=== PATIENT | male | born 1945 | race Caucasian/White ===

== ENCOUNTER → 2017-05-27 08:39 | Outpatient (CLI) | payer MEDICARE, SELFPAY ==
[2017-05-27 09:19] LABS: AST(SGOT) 24 U/L (15-37); Alanine Aminotransfer ALT/SGPT 28 U/L (16-61); Alkaline Phosphatase 72 U/L (45-117); Bilirubin, Direct 0.18 mg/dL (0.00-0.30); Cholesterol 118 mg/dL (200); Globulin 3.1 g/dL (2.2-4.2); High Density Lipoprotein 44 mg/dL; Protein, Total 7.1 g/dL (6.4-8.2); Triglycerides 111 mg/dL; Very Low Density Lipoprotein 22 mg/dL (5-40)
== END ==
PROVIDERS: Family Provider Internal Medicine; PCP Internal Medicine; Visit Provider Physician Assistant Medical
DX: E78.5 Hyperlipidemia, unspecified (principal); Z79.899 Other long term (current) drug therapy
CPT/HCPCS: 36415; 80061; 80076

== ENCOUNTER → 2018-05-24 12:41 | Outpatient (CLI) | payer MEDICARE, SELFPAY ==
[2018-05-16 10:30] VITALS: BMI 25.0
--- NOTE | 2018-05-24 12:44 | ECHOD_ITS ---
Reason For Study: CAD Procedure This was a 2D Doppler, Color Flow transthoracic echocardiogram. The exam was of adequate technical quality. Exam performed in department. Left Ventricle Normal LV size. Mild segmental systolic dysfunction (see wall motion). The estimated ejection fraction is 40 %. No evidence for diastolic dysfunction. Lateral-Basal: Hypokinetic. Posterior- Basal: Akinetic. Infero-Basal: Akinetic. Mid-Lateral : Hypokinetic. Mid-Posterior: Hypokinetic. Mid- Inferior: Hypokinetic. Inferior [place] : Hypokinetic. Lateral [place] : Hypokinetic. Septal [place] : Hypokinetic. Right Ventricle Normal RV size. Normal systolic function. Atria Normal left atrium. Normal right atrium. No doppler evidence for ASD. Mitral Valve There is no mitral annular calcification. Normal mitral valve. Mild (1+) mitral valve insufficiency. Tricuspid Valve Normal tricuspid valve. Trivial tricuspid valve insufficiency. Right ventricular systolic pressure estimated to be 18 mmHg. Aortic Valve Trisinus/trileaflet aortic valve. Mild diffuse aortic valve thickening. Mild focal aortic valve calcification. Mild (1+) aortic valve insufficiency. Pulmonic Valve The pulmonic valve is not well visualized. Trivial pulmonic valve insufficiency. Great Vessels Mildly dilated ascending aorta. Pericardium/Pleural No pericardial effusion. MMode/2D Measurements & Calculations LVIDd: 4.3 cm IVSd: 1.0 cm LVOT diam: 2.0 cm LVIDs: 3.3 cm LVPWd: 1.0 cm LVOT area: 3.2 cm2 RVDd: 2.9 cm FS: 22.2 % Ao root diam: 4.2 cm LAV(MOD-bp): 50.9 ml LA A4 area: 15.8 cm2 LAV(MOD-bp) Indexed: 27.7 ml/m2 LAV(MOD-sp2): 57.0 ml LAV(MOD-sp4): 42.2 ml LA dimension(2D): 4.1 cm RA A4 area: 11.1 cm2 Time Measurements MV dec time: 0.27 sec Doppler Measurements & Calculations MV E max luis: 54.0 cm/sec Lat Peak E' Luis: 7.8 cm/sec Med Peak E' Luis: 5.7 cm/sec MV A max luis: 73.7 cm/sec E/E' lat: 6.9 E/E' med: 9.4 MV E/A: 0.73 Ao V2 max: 123.4 cm/sec AI max luis: 444.9 cm/sec LV V1 max: 90.5 cm/sec Ao max P.1 mmHg AI max P.3 mmHg LV V1 max P.3 mmHg BK(V,D): 2.4 cm2 AI dec slope: 214.3 cm/sec2 AI P1/2t: 608.0 msec PA V2 max: 86.5 cm/sec TR max luis: 194.0 cm/sec TR max P.1 mmHg Interpretation Summary Mild segmental systolic dysfunction (see wall motion). The estimated ejection fraction is 40 %. Mild (1+) mitral valve insufficiency. Trivial tricuspid valve insufficiency. Mild diffuse aortic valve thickening. Mild focal aortic valve calcification. Trivial pulmonic valve insufficiency. Mildly dilated ascending aorta. Right ventricular systolic pressure estimated to be 18 mmHg. No evidence for diastolic dysfunction. Ordering Physician: Rudi Camacho Referring Physician: AMADO ZABALA Performed By: Christi Torres, MAKENZIE, RVT
== END ==
PROVIDERS: Family Provider Internal Medicine; PCP Internal Medicine; Referring Provider Internal Medicine Cardiovascular Disease; Visit Provider Internal Medicine Cardiovascular Disease
DX: I25.10 Atherosclerotic heart disease of native coronary artery without angina pectoris (principal); E78.00 Pure hypercholesterolemia, unspecified; I10 Essential (primary) hypertension; I25.5 Ischemic cardiomyopathy; Z95.5 Presence of coronary angioplasty implant and graft
CPT/HCPCS: 93306

== ENCOUNTER → 2018-06-08 07:17 | Outpatient (CLI) | payer MEDICARE, SELFPAY ==
[2018-05-16 10:30] VITALS: BMI 25.0
--- NOTE | 2018-06-08 07:19 | CT_ITS ---
STUDY: CT CHEST WITH CONTRAST REASON FOR EXAM: Male, 73 years old. Possible thoracic aortic aneurysm. RADIATION DOSAGE (If Supplied By Facility): CTDIvol = ( 12.73 ) mGy, DLP = ( 432.24 ) mGycm TECHNIQUE: Transaxial imaging was performed following intravenous administration of 100 IV Isovue 300. Multiplanar coronal and sagittal images were reformatted. Individualized dose optimization techniques were used for this CT. COMPARISON: None. FINDINGS: The lungs are normal. There is no demonstrated pleural abnormality. There are calcifications of the coronary arteries. Normal mediastinum. Normal hilar regions. Normal enhanced pulmonary arteries. The ascending thoracic aorta has a maximum transverse dimension of 4.2 cm. This is considered dilated. Normal osseous structures. There is no demonstrated abnormality of the visualized upper abdomen. CT/Chest WITH Contrast IMPRESSION: Dilated descending thoracic aorta with a transverse dimension of 4.2 cm. Electronically Signed: Jorge Patel, at 15:41 EDT , Service support ,
[2018-06-08 07:30] LABS: CREATININE FINGERSTICK 1.6 mg/dL (0.70-1.30)
== END ==
PROVIDERS: Family Provider Internal Medicine; PCP Internal Medicine; Referring Provider Internal Medicine Cardiovascular Disease; Visit Provider Internal Medicine Cardiovascular Disease
DX: I77.810 Thoracic aortic ectasia (principal)
CPT/HCPCS: 71260; Q9967

== ENCOUNTER → 2019-10-06 14:18 | Outpatient (CLI) | payer MEDICARE, SELFPAY ==
[2019-06-22 14:04] VITALS: BMI 25.0
--- NOTE | 2019-10-06 14:21 | CT_ITS ---
STUDY: CT CHEST WITH CONTRAST REASON FOR EXAM: Male, 74 years old. PT STATED ASCENDING AORTA ANEURYSM RADIATION DOSAGE (If Supplied By Facility): CTDIvol = ( 12.55 ) mGy, DLP = ( 442.86 ) mGycm TECHNIQUE: Transaxial imaging was performed following intravenous administration of IV 100mL Isovue-300. Multiplanar coronal and sagittal images were reformatted. Individualized dose optimization techniques were used for this CT. COMPARISON: Comparison is made with prior study dated 06/08/2018. FINDINGS: The lungs are normal. There is no demonstrated pleural abnormality. There are calcifications of the coronary arteries. Normal mediastinum. Normal hilar regions. Normal enhanced pulmonary arteries. Stable appearance of the ascending thoracic aorta with a transverse dimension of 4.1 cm. Normal osseous structures. There is a 1.4 cm x 1.4 cm cyst in the left lobe of the liver. Multiple small gallstones are seen in the gallbladder lumen. CT/Chest WITH Contrast IMPRESSION: Stable appearance of the ascending thoracic aorta with a transverse dimension of 4.1 cm. There is no evidence of dissection. Small cyst in the left lobe of liver. Multiple small gallstones are seen within the gallbladder lumen. Electronically Signed: Jorge Patel, at 15:11 EDT , Service support ,
[2019-10-06 14:41] LABS: CREATININE FINGERSTICK 1.1 mg/dL (0.70-1.30)
== END ==
LOC: CT 14:21
PROVIDERS: PCP Internal Medicine; Referring Provider Internal Medicine Cardiovascular Disease; Visit Provider Internal Medicine Cardiovascular Disease
DX: I77.810 Thoracic aortic ectasia (principal)
CPT/HCPCS: 71260; Q9967

== ENCOUNTER 2019-11-28 12:02 | Inpatient (IN) | payer MEDICARE, SELFPAY ==
[2019-10-20 13:58] VITALS: BMI 25.0
[2019-11-28] VITALS (8 sets, daily range): BP systolic 108–135; BP diastolic 45–80; PULSE 64–80; RESP 16–18; TEMP 35.7–36.9; O2SAT 98–100; BMI 25.0; BMI 25.1; BMI 24.8
--- NOTE | 2019-11-28 14:02 | ED.VIS.GEN ---
History of Present Illness Chief Complaint: Weakness Informant: Patient Onset: Days Context: Gradual Onset Timing: Intermittent Current Severity: Moderate Maximum Severity: Moderate Narrative: The patient is a 74-year-old male who is on full dose aspirin and history of hypertension who presents to the emergency department generalized weakness and rectal bleeding. Patient states he has known hemorrhoids. He states for the past 3 days, every time that he is moved his bowels, he has had some bright red blood. He states that he feels generally weak. He denies any history of prior significant GI bleed or transfusion. He states sometimes, he will feel intermittently lightheaded. He is not had fever or chills. He denies any abdominal pain. He stopped taking his aspirin about 3 days ago. Prior similar symptoms: No Recent Illness/Hospitalization: No Past Medical History - Allergies and Home Meds Allergies/Adverse Reactions: Allergies lisinopril Adverse Reaction (Intermediate, Verified 11/28/19 12:02) Unknown losartan Adverse Reaction (Intermediate, Verified 11/28/19 12:02) Diarrhea Primary Care Physician: India Khan MD [Primary Care Provider] - Prior records reviewed: Yes Past Medical History: - - Hypertension Surgical History: noncontributory Review of Systems General: Denies: Chills, Fever, Sweats Eyes: Denies: Visual changes - bilaterally, Diplopia ENT: Denies: Rhinorrhea, Sore throat Cardiovascular: Denies: Chest pain, Palpitations Respiratory: Denies: Dyspnea, Cough, Dyspnea on exertion Gastrointestinal: Reports: Hematochezia. Denies: Abdominal pain, Nausea, Vomiting, Diarrhea, Melena Genitourinary: Denies: Dysuria, Hematuria, Frequency Musculoskeletal: Denies: Back pain, Extremity Pain Skin: Denies: Rash, Wounds Neurological: Reports: Weakness. Denies: Headache, Numbness Physical Exam Vital Signs/Narrative: Vital Signs Temp Pulse Resp BP Pulse Ox 11/28/19 12:03 96.2 F L 66 17 108/45 L 98 Inital Vital Signs reviewed: Yes General: Well nourished, Well developed, No Acute Distress Head: Normocephalic, Atraumatic Eyes: Perr[place], EOMI ENT: Moist mucous membranes, No rhinorrhea Neck: Supple, Nontender Cardiovascular: Regular rate, Regular rhythm, No murmurs Respiratory: No distress, CTA bilaterally, Chest nontender Abdomen: Soft, Nontender, Nondistended, Normal bowel sounds Rectal: Guaiac positive, Nontender Back: Nontender, Normal Inspection Extremities: Nontender, No edema Skin: Normal color, No rash Neurological: Alert, Oriented x3, Cranial nerves II-XII grossly intact, Normal Strength, Normal Sensation Psychological: Normal affect, Normal Mood Diagnostic/Tx/Re-eval Abnormal Lab Results 11/28/19 11/28/19 14:40 14:40 WBC 7.4 RBC 3.07 L Hgb 9.2 L Hct 29.0 L MCV 94.5 H MCH 30.0 MCHC 31.7 L RDW Std Deviation 44.0 H RDW Coeff of Rafael 12.8 Plt Count 214 MPV 9.5 Immature Gran % (Auto) 1.500 H Neut % (Auto) 78.7 H Lymph % (Auto) 11.9 L [place] % (Auto) 7.5 Eos % (Auto) 0.3 Baso % (Auto) 0.1 Absolute Neuts (auto) 5.8 Absolute Lymphs (auto) 0.88 Nucleated RBC % 0 Sodium 144 Potassium 4.5 Chloride 114 H Carbon Dioxide 26.0 Anion Gap 4 L BUN 26 H Creatinine 1.66 H Estim Creat Clear Calc 36.50 Est GFR (MDRD) Af Amer 52 L Est GFR (MDRD) Non-Af 43 L BUN/Creatinine Ratio 15.7 Glucose 103 Calcium 8.3 L Total Bilirubin 0.20 AST 22 ALT 21 Alkaline Phosphatase 70 Total Protein 6.0 L Albumin 3.0 L Globulin 3.0 Albumin/Globulin Ratio 1.0 - Medical Decision Making Rectal exam was done. There was stigmata of recent bleeding, but no active bleeding. Patient has [place] no abdominal pain. Metabolic work-up was pursued. His hemoglobin is 9.4. In review of his prior labs, he is always been between 14 and 15. He is now to the point where he is symptomatic with 4 days of bleeding. I discussed the case with both surgery and the hospitalist. He will be admitted for monitoring of his blood counts, potential transfusion, and potential colonoscopy. The patient is comfortable with this plan of care. Impression 1. Lower GI bleed 2. Symptomatic anemia ED Disposition - Plan for ED Patient: Referrals: India Khan MD [Primary Care Provider] -
[2019-11-28 14:52] LABS: Absolute Lymphocyte Count 0.88 X10^3/uL (0.83-4.51); Absolute Neutrophil Count 5.8 X10^3/uL (2.0-7.7); Basophil# 0.01 X10^3/uL; Basophil% 0.1 % (0-1); Eosinophil# 0.02 X10^3/uL; Eosinophils% 0.3 % (0-5); Hemoglobin 9.2 g/dL (13.0-16.5); Lymphocyte # 0.88 X10^3/ul (4.0); Lymphocyte % 11.9 % (19-41); Mean Corp Hgb Conc 31.7 g/dL (32-36); Mean Corpuscular Volume 94.5 fL (80-94); Mean Platelet Vol. 9.5 fl (6.2-12.0); Monocyte# 0.55 X10^3/uL; Monocyte% 7.5 % (0-10); NRBC Flagged by Analyzer 0 % (0-5); Neutrophil # 5.81 X10^3/uL (2.7-7.7); Neutrophil % 78.7 % (47-70); Platelet Count 214 K/mm3 (150-450); RBC Distribution Width CV 12.8 % (11.6-14.6); Red Blood Count 3.07 M/mm3 (4.6-6.2); White Blood Count 7.4 K/mm3 (4.4-11.0)
[2019-11-28] MEDS: 0.9% Normal Saline 1,000 ML 1000 ML IV (14:59)
[2019-11-28 15:08] LABS: AST(SGOT) 22 U/L (15-37); Alanine Aminotransfer ALT/SGPT 21 U/L (16-61); Alkaline Phosphatase 70 U/L (45-117); Anion Gap 4 (5-15); BUN 26 mg/dL (7-18); BUN/Creat Ratio 15.7 RATIO (10-20); Calcium,Total 8.3 mg/dL (8.5-10.1); Chloride 114 mmol/L (98-107); Creatinine, Serum 1.66 mg/dL (0.70-1.30); EST Glomerular Filtration Rate 43 mL/min (>60); Est Glom Filt Rate - Afr Amer 52 mL/min (>60); Glucose 103 mg/dL (74-106); Potassium 4.5 mmol/L (3.5-5.1); Sodium Level 144 mmol/L (136-145)
--- NOTE | 2019-11-28 15:19 | NURSING ---
DR ANJALI ELIAS
--- NOTE | 2019-11-28 15:20 | PCM.HP.STD ---
History of Present Illness Date of Admission: 11/28/19 Chief Complaint: rectal bleeding The patient is a 74 year old M with multiple medical history which includes CAD s/p stents x2 and on full dose aspirin as well as hypertension. He was admitted through the ED on 11/28/2019 with a complaint of rectal bleeding as well as generalized weakness. Patient states he has been having rectal bleeding for the past 3 days every time he has a bowel movement. Bleeding is bright red. It is painless. He denies any abdominal pain. He does admit to some intermittent lightheadedness and dizziness but denies any chest pain, nausea vomiting or diarrhea. Review of signs otherwise negative. He stopped taking his aspirin about 3 days ago. He has not had any such rectal bleeding in the past. ED, vitals were temperature of 96.2 Fahrenheit with blood pressure of 128/73, pulse rate of 68 and respiratory of 118. He was saturating at 100% on room air. Chemistry showed creatinine of 1.66 and potassium of 4.5. CBC showed hemoglobin of 9.2 with WBC of 7.4. Platelets were 214. He has been admitted to be managed for lower GI bleed possibly due to hemorrhoidal bleeding. Past Medical History Past Medical History (Chronic Problems): Chronic Problems (Last Reviewed 06/22/19 @ 14:25 by Mandie Acosta) Pure hypercholesterolemia (Chronic) Ascending aorta dilatation (Chronic) Presence of stent in coronary artery (Chronic ~03/29/07) PTCA of LAD intracoronary stent August 1996;PTCA/BMS of mid CX 03/29/07 Essential hypertension (Chronic) Angina pectoris (Chronic) Atherosclerotic heart disease of [place] coronary artery without angina pectoris (Chronic) Ischemic cardiomyopathy (Chronic) Nonspecific abnormal results of function study of liver (Chronic) Tachycardia (Chronic) Medical History: Medical History (Last Reviewed 06/22/19 @ 14:25 by Mandie Acosta) Pure hypercholesterolemia (Chronic) E78.00 Presence of stent in coronary artery (Chronic) Onset Date: ~03/29/07 Z95.5 PTCA of LAD intracoronary stent August 1996;PTCA/BMS of mid CX 03/29/07 Essential hypertension (Chronic) I10 Angina pectoris (Chronic) I20.9 Atherosclerotic heart disease of [place] coronary artery without angina pectoris (Chronic) I25.10 Ischemic cardiomyopathy (Chronic) I25.5 Tachycardia (Chronic) R00.0 Allergies lisinopril Adverse Reaction (Intermediate, Verified 11/28/19 12:02) Unknown losartan Adverse Reaction (Intermediate, Verified 11/28/19 12:02) Diarrhea Home Medications: Ambulatory Orders Medication Instructions Recorded aspirin 325 mg tablet 325 mg PO DAILY tab 05/27/17 nitroglycerin 0.4 mg sublingual 0.4 mg SUBLINGUAL Q5M PRN #25 tab 05/31/17 tablet Atenolol [Tenormin (beta tanisha)] 50 mg PO QHS 11/28/19 Atorvastatin Calcium [Lipitor] 80 mg PO QHS 11/28/19 Multivit-Min/FA/Lycopen/Lutein 1 tab PO DAILY 11/28/19 [Centrum Silver Men Tablet] Tadalafil 10 mg PO DAILY PRN PRN 11/28/19 Valsartan 40 mg PO QHS 11/28/19 Surgical History: Surgical History (Last Reviewed 06/22/19 @ 14:25 by Mandie Acosta) Presence of coronary angioplasty implant and graft Onset Date: ~03/29/07 Z95.5 PTCA of LAD intracoronary stent August 1996;PTCA/BMS of mid CX 03/29/07 Surgical History: noncontributory Lives: With Family Smoking Status: Never smoker Alcohol: None Drugs: None - *Family History Maternal Family History: Family History (Last Reviewed 06/22/19 @ 14:25 by Mandie Acosta) Father CAD (coronary artery disease) Mother Alzheimer's disease Sister Breast cancer Hyperlipidemia Hypertension Review of Systems Constitutional: Denies: Chills, Fever, Malaise, Weakness, Weight Change Eyes: Denies: Blurred vision HEENT: Denies: Head Aches, Sinus Congestion, Sinus Drainage Cardiovascular: Denies: Chest Pain, Palpitations Respiratory: Denies: Cough, Shortness of Breath, Shortness of breath at rest, Shortness of breath upon exertion, Sputum production Gastrointestinal: Reports: Hematochezia. Denies: Abdominal Pain, Nausea, Vomiting Genitourinary: Denies: Dysuria Musculoskeletal: Denies: Joint Pain, Joint Tenderness Skin: Denies: Rash, Wounds Neurological: Denies: Numbness, Tingling, Focal weakness Psychiatric: Denies: Anxiety, Depression, Homicidal Ideations, Suicidal Ideations Hematologic/ Lymphatic: Denies: Easy Bruising, Easy Bleeding VTE Information - Inpt Only VTE Present on Admission: No VTE Mechan Device Prophylaxis: SCD's VTE Pharm Prophylaxis ordered?: No Reason prophylaxis not ordered:: Medical Contraindication - rectal bleeding - Physical Exam Vitals/I&O's: Vital Signs Temp Pulse Resp BP Pulse Ox 96.2 F L 68 18 128/73 H 100 11/28/19 12:03 11/28/19 14:58 11/28/19 14:58 11/28/19 14:58 11/28/19 14:58 Oxygen Delivery Method Room Air Weight: 160 lb Body Mass Index (BMI) 25.0 General: Alert, Oriented x3, Cooperative, No apparent distress HEENT: Atraumatic, PERRLA, EOMI, Normocephalic Oral: Dry Mucosa Neck: Supple, No JVD, Negative Carotid Bruits Lungs: Clear to auscultation, Normal air movement, No rhonchi, No wheeze, No rales Cardiovascular: Regular rate, Regular Rhythm, Normal S1, Normal S2, No murmurs Abdomen: Bowel Sounds Present, Soft, Non Tender, Non-Distended, No Hepato-splenomegaly Extremities: No clubbing, No cyanosis, No edema, Capillary Refill Less than 3 Seconds Skin: No rashes, No breakdown Musculoskeletal: No Tenderness to Palpation of Joints or Extremities Lymphatic: No Cervical, Supraclavicular, or Inguinal Adenopathy Neurological: Cranial nerves II-XII grossly intact, Neuro grossly intact, Motor Exam 5/5 strength throughout Psych/Mental Status: Normal Affect, Appropriate, Alert and oriented to time, place, person, mood and affect Laboratory Results 11/28/19 14:40: WBC 7.4, RBC 3.07 L, Hgb 9.2 L, Hct 29.0 L, MCV 94.5 H, MCH 30.0, MCHC 31.7 L, RDW Std Deviation 44.0 H, RDW Coeff of [place] 12.8, Plt Count 214, MPV 9.5, Immature Gran % (Auto) 1.500 H, Neut % (Auto) 78.7 H, Lymph % (Auto) 11.9 L, [place] % (Auto) 7.5, Eos % (Auto) 0.3, Baso % (Auto) 0.1, Absolute Neuts (auto) 5.8, Absolute Lymphs (auto) 0.88, Nucleated RBC % 0 11/28/19 14:40: Sodium 144, Potassium 4.5, Chloride 114 H, Carbon Dioxide 26.0, Anion Gap 4 L, BUN 26 H, Creatinine 1.66 H, Estim Creat Clear Calc 36.50, Est GFR (MDRD) Af Amer 52 L, Est GFR (MDRD) Non-Af 43 L, BUN/Creatinine Ratio 15.7, Glucose 103, Calcium 8.3 L, Total Bilirubin 0.20, AST 22, ALT 21, Alkaline Phosphatase 70, Total Protein 6.0 L, Albumin 3.0 L, Globulin 3.0, Albumin/Globulin Ratio 1.0 11/28/19 14:40: Blood Type Pending, Antibody Screen Pending Assessment/Plan 74-year-old admitted with a complaint of rectal bleeding. #Lower GI bleed main differential is hemorrhoidal bleeding; he does have a history of hemorrhoids for many years, and says he has had several colonoscopies in the past, witht he last one being ~ 3 years ago. he says he had it in the [facility] system. admit to MEd surg hb is 9.2. Baseline from mar 2019 was ~ 14 hydrate gently with IVF general surgery consulted hold aspirin #. JOSH: Cr is 1.66. Baseline from 2013 is 1.3. Hydrate with IV fluids and monitor. #Anemia: Hemoglobin is 9.2. Likely due to lower GI bleed. Baseline from March is around 14. likely due to acute blood loss. transfuse if Hb <7 #CAD status post stents: Aspirin on hold. Continue atenolol and atorvastatin. #Hypertension: Hold valsartan on account of JOSH with creatinine of 1.66. IV hydralazine PRN. Continue atenolol DVT prophylaxis: SCDs. No anticoagulation on account of rectal bleeding. CODE STATUS: full code Patient counseled extensively about different types of CODE STATUS including full code, DNR CCA and DNR CCA. Patient elects to be full code. Total [id number] time 17 minutes. Inpatient E&M: 51925 Init Hosp L3 Procedures: 94288 Advncd Care Plan 30 Min
--- NOTE | 2019-11-28 15:27 | NURSING ---
MED SURG GI BLEED ANJALI
[2019-11-28] MEDS: 0.9% Saline Lock 10 ML Syringe IV (16:21)
[2019-11-28] MEDS: 0.9% Normal Saline 1,000 ML 125 ML IV (18:45)
[2019-11-28] MEDS: Atorvastatin Calcium 80 MG Tablet PO (20:27)
[2019-11-28] MEDS: Acetaminophen 325 MG Tablet 650 MG PO (22:25)
[2019-11-29] VITALS (20 sets, daily range): BP systolic 95–159; BP diastolic 62–101; PULSE 53–140; RESP 16–18; TEMP 36.4–37.5; O2SAT 95–100
--- NOTE | 2019-11-29 00:05 | EKG12_ITS ---
Test Reason : EGD Blood Pressure : / mmHG Vent. Rate : 062 BPM Atrial Rate : 089 BPM P-R Int : 000 ms QRS Dur : 090 ms QT Int : 400 ms P-R-T Axes : 048 -54 029 degrees QTc Int : 406 ms Sinus rhythm with 2nd degree A-V block ([place]ob[place] I) Left axis deviation Low voltage QRS Inferior infarct , age undetermined Abnormal ECG When compared with ECG of 29-NOV-2019 00:33, MANUAL COMPARISON REQUIRED, DATA IS UNCONFIRMED Confirmed by CAPRI ARREGUIN, SB ([id number]), newspaper or periodical editor PABLO SOL ([id number]) on 12/05/2019 12:43:53 PM Referred By: ANJALI Confirmed By:SB FAROOQ MD
[2019-11-29] MEDS: 0.9% Normal Saline 1,000 ML 125 ML IV (02:10)
[2019-11-29] MEDS: Acetaminophen 325 MG Tablet 650 MG PO ×2 (05:23→13:32)
[2019-11-29 05:43] LABS: Absolute Lymphocyte Count 1.35 X10^3/uL (0.83-4.51); Basophil# 0.01 X10^3/uL; Basophil% 0.2 % (0-1); Eosinophil# 0.08 X10^3/uL; Eosinophils% 1.6 % (0-5); Hematocrit 24.2 % (40-54); Hemoglobin 7.7 g/dL (13.0-16.5); Lymphocyte # 1.35 X10^3/ul (4.0); Lymphocyte % 26.6 % (19-41); Mean Corp Hgb Conc 31.8 g/dL (32-36); Mean Corpuscular Hgb 29.6 pg (27.0-32.0); Mean Corpuscular Volume 93.1 fL (80-94); Mean Platelet Vol. 8.8 fl (6.2-12.0); Monocyte# 0.58 X10^3/uL; Monocyte% 11.4 % (0-10); NRBC Flagged by Analyzer 0 % (0-5); Neutrophil % 59.2 % (47-70); Platelet Count 167 K/mm3 (150-450); RBC Distribution Width SD 44.1 fl (35.1-43.9); White Blood Count 5.1 K/mm3 (4.4-11.0)
[2019-11-29 06:03] LABS: Anion Gap 3 (5-15); BUN 19 mg/dL (7-18); BUN/Creat Ratio 14.5 RATIO (10-20); Calcium,Total 7.4 mg/dL (8.5-10.1); Chloride 119 mmol/L (98-107); Creatinine, Serum 1.31 mg/dL (0.70-1.30); EST Glomerular Filtration Rate 57 mL/min (>60); Est Glom Filt Rate - Afr Amer 69 mL/min (>60); Estimated Creatinine Clearance 46.25 ml/min; Glucose 91 mg/dL (74-106); Potassium 4.2 mmol/L (3.5-5.1); Sodium Level 145 mmol/L (136-145)
[2019-11-29 07:21] LABS: Magnesium 1.8 mg/dL (1.6-2.6)
--- NOTE | 2019-11-29 07:31 | PCM.CONS.GEN ---
Problem List (1) GI bleed Status: Acute Qualifiers: GI bleed type/associated pathology: anorectal hemorrhage Qualified Code(s): K62.5 - Hemorrhage of anus and rectum Reason for Consult Date of Consultation: 11/29/19 Reason for Consultation: GI bleed History of Present Illness: The patient is a 74 year old M who reports having bright red bleeding recently per rectum. The patient reports that he is not having any abdominal pain or rectal pain. He has never had a GI bleed in the past. His last colonoscopy was 3 to 4 years ago and was normal. He does not know if he has a history of diverticulosis. He reports that overnight he had 1 more bowel movement and it was bright red blood. Past Medical History Past Medical History (Chronic Problems): Chronic Problems (Last Reviewed 06/22/19 @ 14:25 by Mandie Acosta) Pure hypercholesterolemia (Chronic) Ascending aorta dilatation (Chronic) Presence of stent in coronary artery (Chronic ~03/29/07) PTCA of LAD intracoronary stent August 1996;PTCA/BMS of mid CX 03/29/07 Essential hypertension (Chronic) Angina pectoris (Chronic) Atherosclerotic heart disease of [place] coronary artery without angina pectoris (Chronic) Ischemic cardiomyopathy (Chronic) Nonspecific abnormal results of function study of liver (Chronic) Tachycardia (Chronic) Medical History: Medical History (Last Reviewed 06/22/19 @ 14:25 by Mandie Acosta) Pure hypercholesterolemia (Chronic) E78.00 Presence of stent in coronary artery (Chronic) Onset Date: ~03/29/07 Z95.5 PTCA of LAD intracoronary stent August 1996;PTCA/BMS of mid CX 03/29/07 Essential hypertension (Chronic) I10 Angina pectoris (Chronic) I20.9 Atherosclerotic heart disease of [place] coronary artery without angina pectoris (Chronic) I25.10 Ischemic cardiomyopathy (Chronic) I25.5 Tachycardia (Chronic) R00.0 Allergies lisinopril Adverse Reaction (Intermediate, Verified 11/28/19 12:02) Unknown losartan Adverse Reaction (Intermediate, Verified 11/28/19 12:02) Diarrhea Home Medications: Ambulatory Orders Medication Instructions Recorded aspirin 325 mg tablet 325 mg PO DAILY tab 05/27/17 nitroglycerin 0.4 mg sublingual 0.4 mg SUBLINGUAL Q5M PRN #25 tab 05/31/17 tablet Atenolol [Tenormin (beta jadon)] 50 mg PO QHS 11/28/19 Atorvastatin Calcium [Lipitor] 80 mg PO QHS 11/28/19 Multivit-Min/FA/Lycopen/Lutein 1 tab PO DAILY 11/28/19 [Centrum Silver Men Tablet] Tadalafil 10 mg PO DAILY PRN PRN 11/28/19 Valsartan 40 mg PO QHS 11/28/19 Surgical History: Surgical History (Last Reviewed 06/22/19 @ 14:25 by Mandie Acosta) Presence of coronary angioplasty implant and graft Onset Date: ~03/29/07 Z95.5 PTCA of LAD intracoronary stent August 1996;PTCA/BMS of mid CX 03/29/07 Surgical History: noncontributory Lives: With Family Smoking Status: Never smoker Tobacco Use: Non-smoker Alcohol: None Drugs: None - *Family History Maternal Family History: Family History (Last Reviewed 06/22/19 @ 14:25 by Mandie Acosta) Father CAD (coronary artery disease) Mother Alzheimer's disease Sister Breast cancer Hyperlipidemia Hypertension Review of Systems Constitutional: Denies: Anorexia, Fever Eyes: Denies: Blurred vision HEENT: Denies: Difficulty Swallowing Cardiovascular: Denies: Chest Pain Respiratory: Denies: Cough Gastrointestinal: Reports: Hematochezia. Denies: Abdominal Pain, Constipation, Diarrhea, Hematemesis, Nausea, Melena, Vomiting Genitourinary: Denies: Retention Musculoskeletal: Denies: Joint Tenderness Skin: Denies: Jaundice Neurological: Denies: Balance problems Hematologic/ Lymphatic: Denies: Anemia Patient Problems: Active and Suspected Problems (Last Reviewed 06/22/19 @ 14:25 by Mandie Acosta) GI bleed (Acute) - Physical Exam Vitals/I&O's: Vital Signs Temp Pulse Resp BP Pulse Ox 98.5 F 58 L 16 109/64 100 11/29/19 02:07 11/29/19 04:00 11/29/19 02:07 11/29/19 02:07 11/29/19 02:07 Oxygen Delivery Method Room Air Weight: 158 lb 11.725 oz Body Mass Index (BMI) 24.8 Intake and Output for Last 24 Hours 11/27/19 11/28/19 11/29/19 23:59 23:59 23:59 Intake Total 1000 / 1000 1427.08 / 1427.08 Balance 999 / 999 1427.08 / 1427.08 General: Alert, Oriented x3 Lungs: Normal air movement Cardiovascular: Regular rate, Regular Rhythm Abdomen: Soft, Non Tender, Non-Distended, - - On rectal exam there is no gross blood Laboratory Results 11/28/19 14:40: WBC 7.4, RBC 3.07 L, Hgb 9.2 L, Hct 29.0 L, MCV 94.5 H, MCH 30.0, MCHC 31.7 L, RDW Std Deviation 44.0 H, RDW Coeff of Rafael 12.8, Plt Count 214, MPV 9.5, Immature Gran % (Auto) 1.500 H, Neut % (Auto) 78.7 H, Lymph % (Auto) 11.9 L, [place] % (Auto) 7.5, Eos % (Auto) 0.3, Baso % (Auto) 0.1, Absolute Neuts (auto) 5.8, Absolute Lymphs (auto) 0.88, Nucleated RBC % 0 11/28/19 14:40: Sodium 144, Potassium 4.5, Chloride 114 H, Carbon Dioxide 26.0, Anion Gap 4 L, BUN 26 H, Creatinine 1.66 H, Estim Creat Clear Calc 36.50, Est GFR (MDRD) Af Amer 52 L, Est GFR (MDRD) Non-Af 43 L, BUN/Creatinine Ratio 15.7, Glucose 103, Calcium 8.3 L, Total Bilirubin 0.20, AST 22, ALT 21, Alkaline Phosphatase 70, Total Protein 6.0 L, Albumin 3.0 L, Globulin 3.0, Albumin/Globulin Ratio 1.0 11/28/19 14:40: Blood Type A NEGATIVE, Antibody Screen NEGATIVE 11/29/19 05:34: WBC 5.1, RBC 2.60 L, Hgb 7.7 L, Hct 24.2 L, MCV 93.1, MCH 29.6, MCHC 31.8 L, RDW Std Deviation 44.1 H, RDW Coeff of Rafael 13.0, Plt Count 167, MPV 8.8, Immature Gran % (Auto) 1.000 H, Neut % (Auto) 59.2, Lymph % (Auto) 26.6, [place] % (Auto) 11.4 H, Eos % (Auto) 1.6, Baso % (Auto) 0.2, Absolute Neuts (auto) 3.0, Absolute Lymphs (auto) 1.35, Nucleated RBC % 0 11/29/19 05:34: Sodium 145, Potassium 4.2, Chloride 119 H, Carbon Dioxide 23.0, Anion Gap 3 L, BUN 19 H, Creatinine 1.31 H, Estim Creat Clear Calc 46.25, Est GFR (MDRD) Af Amer 69, Est GFR (MDRD) Non-Af 57 L, BUN/Creatinine Ratio 14.5, Glucose 91, Calcium 7.4 L 11/29/19 05:34: Magnesium 1.8 Current Medications Acetaminophen (Tylenol) 650 mg PO Q6H PRN PRN PRN Reason: Pain Score 1-12/15 Last Admin: 11/29/19 05:23 Dose: 650 mg Documented by: Albuterol Sulfate (Ventolin Aerosols) 2.5 mg INHALATION Q2H PRN PRN PRN Reason: Dyspnea, wheezing Atenolol (Tenormin (Beta Jadon)) 50 mg PO QHS [facility] Atorvastatin Calcium (Lipitor) 80 mg PO QHS [facility] Last Admin: 11/28/19 20:27 Dose: 80 mg Documented by: Bisacodyl (Dulcolax) 20 mg PO 1400 ONE Stop: 11/29/19 14:01 Hydralazine HCl (Apresoline Iv) 10 mg IV Q4H PRN PRN PRN Reason: SBP > 160 Sodium Chloride () 1,000 mls @ 125 mls/hr IV .Q8H [facility] Stop: 11/29/19 10:43 Last Admin: 11/29/19 02:10 Dose: 125 mls/hr Documented by: Pantoprazole Sodium 40 mg/ (Sodium Chloride) 110 mls @ 330 mls/hr IV Q12 [facility] Multivitamins/Minerals (Multivitamin With Minerals (Bkc)) 1 tablet PO DAILY@0800 [facility] Nitroglycerin (Nitrostat) 0.4 mg SUBLINGUAL Q5M PRN PRN Reason: .CHEST PAIN Non-Formulary Medication (Valsartan) 40 mg PO QHS [facility] Ondansetron HCl (Zofran) 4 mg IV Q8H PRN PRN PRN Reason: NAUSEA/VOMITING Polyethylene Glycol (Clearlax For Bowel Prep) 0 bottle PO DAILY@1600 [facility] Stop: 11/30/19 15:00 Sodium Chloride () 10 - 40 ml IV UD PRN PRN Reason: SALINE FLUSH Last Admin: 11/28/19 16:21 Dose: 10 ml Documented by: Assessment/Plan All Active Problems (Last Reviewed 06/22/19 @ 14:25 by Mandie Acosta) GI bleed (Acute) 74-year-old male with GI bleeding 1. Patient is having bright red blood per rectum. He is not having any abdominal pain. On rectal exam the patient did have a small amount of hemorrhoids but these were not impressive and there was no gross blood on rectal exam. I am fairly unimpressed with his hemorrhoids and believe the bleed might be having more proximal. I will order the patient a bowel prep today and perform an EGD and colonoscopy tomorrow. 2. I explained endoscopy in detail to the patient. I explained the risks including but not limited to stroke or heart attack with anesthesia, perforation of the GI tract, bleeding, infection. I explained that any of these could necessitate further emergency surgery. The patient understands and all questions were answered sufficiently. The patient wishes to proceed with procedure. 3. Patient had heart block overnight and cardiology is being consulted. If they are okay with proceeding tomorrow I will plan on proceeding with scopes. Crow Fierro MD Pager: [facility] [address] [place] [address], [address] [place] [address] Office:
[2019-11-29] MEDS: Multivitamins,Ther W-Minerals Tablet 1 TABLET PO (08:42)
--- NOTE | 2019-11-29 09:12 | CON.PCM_ITS ---
Problem List (1) Atherosclerotic heart disease of [place] coronary artery without angina pectoris Status: Chronic Qualifiers: [place] vs. transplanted heart: [place] heart Qualified Code(s): I25.10 - Atherosclerotic heart disease of [place] coronary artery without angina pectoris Reason for Consult Date of Consultation: 11/29/19 History of Present Illness: The patient is a 74 year old M [referred for preop cardiac clearance. Apparently for the last 4 days patient has been having rectal bleed with fresh blood and denies any abdominal cramping, chest pain or shortness of breath. This has been happening once every 3 to 6 months. He has never been investigated for it. He claimed that if he stopped his aspirin] the Bleeding Will stop. His cardiac history dates back to 2007 at that time he had stenting of his left circumflex and 10 years later patient had angioplasty of the left anterior descending. Since then patient has had no recurrence of chest pain. In the good day, patient can do anything he wants to do with no difficulty. Last stress test was 6 years ago there was some mild reversibility according to Dr. Camacho. Last echocardiogram was February 2019 and showed ejection fraction of 40%. He is known to have hypertension and hyperlipidemia. He is a non-smoker and drinks occasionally. He does use IV Meth occasionally. The last time he used was 6 days ago. He denies any palpitations or syncopal episode. He does have orthostatic dizziness more so lately. His hemoglobin on admission was 9. Today was 7.7. At home patient has been taking 5 g of aspirin a day, valsartan 40 mg daily, atenolol 50 mg daily and Lipitor daily. EKG showed Wenckebach AV conduction. Past Medical History Allergies/Adverse Reactions: Allergies lisinopril Adverse Reaction (Intermediate, Verified 11/28/19 12:02) Unknown losartan Adverse Reaction (Intermediate, Verified 11/28/19 12:02) Diarrhea Home Medications: Ambulatory Orders Medication Instructions Recorded aspirin 325 mg tablet 325 mg PO DAILY tab 05/27/17 nitroglycerin 0.4 mg sublingual 0.4 mg SUBLINGUAL Q5M PRN #25 tab 05/31/17 tablet Atenolol [Tenormin (beta tanisha)] 50 mg PO QHS 11/28/19 Atorvastatin Calcium [Lipitor] 80 mg PO QHS 11/28/19 Multivit-Min/FA/Lycopen/Lutein 1 tab PO DAILY 11/28/19 [Centrum Silver Men Tablet] Tadalafil 10 mg PO DAILY PRN PRN 11/28/19 Valsartan 40 mg PO QHS 11/28/19 Past Medical History (Chronic Problems): Chronic Problems (Last Reviewed 06/22/19 @ 14:25 by Mandie Acosta) Pure hypercholesterolemia (Chronic) Ascending aorta dilatation (Chronic) Presence of stent in coronary artery (Chronic ~03/29/07) PTCA of LAD intracoronary stent August 1996;PTCA/BMS of mid CX 03/29/07 Essential hypertension (Chronic) Angina pectoris (Chronic) Atherosclerotic heart disease of [place] coronary artery without angina pectoris (Chronic) Ischemic cardiomyopathy (Chronic) Nonspecific abnormal results of function study of liver (Chronic) Tachycardia (Chronic) Surgical History: noncontributory - *Family History Maternal Family History: Family History (Last Reviewed 06/22/19 @ 14:25 by Mandie Acosta) Father CAD (coronary artery disease) Mother Alzheimer's disease Sister Breast cancer Hyperlipidemia Hypertension Lives: With Family Smoking Status: Never smoker Tobacco Use: Non-smoker Alcohol: None Drugs: None Review of Systems - Review of Systems General: Reports: Fatigue, Weakness Cardiovascular: Denies: Chest Discomfort, Shortness of Breath Respiratory: Denies: Shortness of Breath Gastrointestinal: Reports: - - Rectal bleed with no abdominal pain Neurological: Reports: Dizziness Hematologic/ Lymphatic: Reports: Anemia Objective: Vital Signs Temp Pulse Resp BP Pulse Ox 98.7 F 83 18 95/70 98 11/29/19 08:41 11/29/19 08:41 11/29/19 08:41 11/29/19 08:41 11/29/19 08:41 Oxygen Delivery Method Room Air Weight: 158 lb 11.725 oz Body Mass Index (BMI) 24.8 Intake and Output for Last 24 Hours 11/27/19 11/28/19 11/29/19 23:59 23:59 23:59 Intake Total 1000 / 1000 1537.08 / 1537.08 Balance 1000 / 1000 1537.08 / 1537.08 General: Healthy Appearing, Oriented x 3, No Acute Distress Neck: Supple Lungs: Clear to auscultation Cardiovascular: Regular Rhythm, Normal S1, Normal S2, No Murmurs, No Rubs, No Gallops Vascular: No Carotid Bruits Abdomen: Bowel Sounds Present, Soft, Non Tender Extremities: No edema Neurological: No Focal Motor or Sensory Deficit Psych/Mental Status: Appropriate, Normal Affect 11/28/19 14:40: WBC 7.4, RBC 3.07 L, Hgb 9.2 L, Hct 29.0 L, MCV 94.5 H, MCH 30.0, MCHC 31.7 L, Plt Count 214, MPV 9.5, Immature Gran % (Auto) 1.500 H, Neut % (Auto) 78.7 H, Lymph % (Auto) 11.9 L, [place] % (Auto) 7.5, Eos % (Auto) 0.3, Baso % (Auto) 0.1, Absolute Neuts (auto) 5.8, Nucleated RBC % 0 11/28/19 14:40: Sodium 144, Potassium 4.5, Chloride 114 H, Carbon Dioxide 26.0, Anion Gap 4 L, BUN 26 H, Creatinine 1.66 H, Est GFR (MDRD) Af Amer 52 L, Est GFR (MDRD) Non-Af 43 L, BUN/Creatinine Ratio 15.7, Glucose 103, Calcium 8.3 L, Total Bilirubin 0.20 11/29/19 05:34: WBC 5.1, RBC 2.60 L, Hgb 7.7 L, Hct 24.2 L, MCV 93.1, MCH 29.6, MCHC 31.8 L, Plt Count 167, MPV 8.8, Immature Gran % (Auto) 1.000 H, Neut % (Auto) 59.2, Lymph % (Auto) 26.6, [place] % (Auto) 11.4 H, Eos % (Auto) 1.6, Baso % (Auto) 0.2, Absolute Neuts (auto) 3.0, Nucleated RBC % 0 11/29/19 05:34: Sodium 145, Potassium 4.2, Chloride 119 H, Carbon Dioxide 23.0, Anion Gap 3 L, BUN 19 H, Creatinine 1.31 H, Est GFR (MDRD) Af Amer 69, Est GFR (MDRD) Non-Af 57 L, BUN/Creatinine Ratio 14.5, Glucose 91, Calcium 7.4 L 11/29/19 05:34: Magnesium 1.8 Rhythm: EKG: ECHO: Stress Test: Cardiac Cath: PCI: CT Surgery: Holter monitor: EPS: PPM: CXR: Chest CT Scan: Assessment/Plan #1 ischemic dilated cardiomyopathy well compensated with no recurrence of chest pain. Patient can do anything he wants to do with no difficulty. EKG showed sinus rhythm with Wenckebach AV conduction. From cardiac standpoint patient can undergo general anesthetic for the endoscopy. The risk is slightly increased. Patient is fully agreeable with the risk and will proceed with the endoscopy. Encouraged the patient to quit using IV drug. Atenolol will be switch over to carvedilol because of the ischemic dilated cardiomyopathy and use of IV drug. He may need transfusion of 1 unit of packed cell I have discussed the case with Dr. Romero. I will follow with you
[2019-11-29 10:58] LABS: Hematocrit 24.2 % (40-54); Hemoglobin 7.6 g/dL (13.0-16.5)
--- NOTE | 2019-11-29 11:20 | CASEMGMT ---
RN MARS Face to Face with patient for initial transition planning/care coordination assessment. RN CM introduced self and role at [facility]. Patient sitting in chair, alert and oriented. Patient willing to participate in assessment and is able to answer all questions appropriately. Care providers, pharmacy, and demographics verified. Patient wishes to discharge home, denies need for home health at this time. Patient states he has no further needs or concerns at this time. CM to follow for discharge planning needs that may arise. 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 Patient states he is independent at home. Transportation: self, daughter DME/HHC: Patient states he has grab bars at home. Patient denies additional DME needs. No previous HHC. Disposition Plan: Patient to discharge home with family support and follow-up plans in place. Francisca BAIRES, RN, CM
--- NOTE | 2019-11-29 12:21 | PCM.PN.HOSP ---
Patient Problems: Active and Suspected Problems (Last Reviewed 06/22/19 @ 14:25 by Mandie Acosta) GI bleed (Acute) Reason for Visit: gi bleed Subjective: patient states that he has had GI bleeding for years. He states normally he stops taking aspirin for a few days and it resolves on its own. He notes this time stopping aspirin did not help. He reports significant fatigue and lightheadedness on exertion. No SOB. Last had endoscopy at [facility] about 5 years ago, colonoscopy. No problems at that time. Vitals/I&O's: Vital Signs Temp Pulse Resp BP Pulse Ox 98.7 F 83 18 95/70 98 11/29/19 08:41 11/29/19 08:41 11/29/19 08:41 11/29/19 08:41 11/29/19 08:41 Oxygen Delivery Method Room Air Weight: 158 lb 11.725 oz Body Mass Index (BMI) 24.8 Intake and Output for Last 24 Hours 11/27/19 11/28/19 11/29/19 23:59 23:59 23:59 Intake Total 1000 / 1000 2537.08 / 2537.08 Balance 1000 / 1000 2537.08 / 2537.08 General: Alert, Oriented x3, Cooperative HEENT: Atraumatic, PERRLA, EOMI, Normocephalic Neck: Supple, No JVD, Negative Carotid Bruits Lungs: Clear to auscultation, Normal air movement Cardiovascular: Regular rate, No murmurs Abdomen: Bowel Sounds Present, Soft, Non Tender Extremities: No edema, Capillary Refill Less than 3 Seconds Skin: No rashes, No breakdown Musculoskeletal: No Tenderness to Palpation of Joints or Extremities Neurological: Cranial nerves II-XII grossly intact Psych/Mental Status: Normal Affect, Appropriate, Alert and oriented to time, place, person, mood and affect Laboratory Results 11/28/19 14:40: WBC 7.4, RBC 3.07 L, Hgb 9.2 L, Hct 29.0 L, MCV 94.5 H, MCH 30.0, MCHC 31.7 L, RDW Std Deviation 44.0 H, RDW Coeff of Rafael 12.8, Plt Count 214, MPV 9.5, Immature Gran % (Auto) 1.500 H, Neut % (Auto) 78.7 H, Lymph % (Auto) 11.9 L, [place] % (Auto) 7.5, Eos % (Auto) 0.3, Baso % (Auto) 0.1, Absolute Neuts (auto) 5.8, Absolute Lymphs (auto) 0.88, Nucleated RBC % 0 11/28/19 14:40: Sodium 144, Potassium 4.5, Chloride 114 H, Carbon Dioxide 26.0, Anion Gap 4 L, BUN 26 H, Creatinine 1.66 H, Estim Creat Clear Calc 36.50, Est GFR (MDRD) Af Amer 52 L, Est GFR (MDRD) Non-Af 43 L, BUN/Creatinine Ratio 15.7, Glucose 103, Calcium 8.3 L, Total Bilirubin 0.20, AST 22, ALT 21, Alkaline Phosphatase 70, Total Protein 6.0 L, Albumin 3.0 L, Globulin 3.0, Albumin/Globulin Ratio 1.0 11/28/19 14:40: Blood Type A NEGATIVE, Antibody Screen NEGATIVE 11/28/19 14:40: Crossmatch See Detail 11/29/19 05:34: WBC 5.1, RBC 2.60 L, Hgb 7.7 L, Hct 24.2 L, MCV 93.1, MCH 29.6, MCHC 31.8 L, RDW Std Deviation 44.1 H, RDW Coeff of Rafael 13.0, Plt Count 167, MPV 8.8, Immature Gran % (Auto) 1.000 H, Neut % (Auto) 59.2, Lymph % (Auto) 26.6, [place] % (Auto) 11.4 H, Eos % (Auto) 1.6, Baso % (Auto) 0.2, Absolute Neuts (auto) 3.0, Absolute Lymphs (auto) 1.35, Nucleated RBC % 0 11/29/19 05:34: Sodium 145, Potassium 4.2, Chloride 119 H, Carbon Dioxide 23.0, Anion Gap 3 L, BUN 19 H, Creatinine 1.31 H, Estim Creat Clear Calc 46.25, Est GFR (MDRD) Af Amer 69, Est GFR (MDRD) Non-Af 57 L, BUN/Creatinine Ratio 14.5, Glucose 91, Calcium 7.4 L 11/29/19 05:34: Magnesium 1.8 11/29/19 10:40: Hgb 7.6 L, Hct 24.2 L Current Medications Acetaminophen (Tylenol) 650 mg PO Q6H PRN PRN PRN Reason: Pain Score 1-10/10 Last Admin: 11/29/19 05:23 Dose: 650 mg Documented by: Albuterol Sulfate (Ventolin Aerosols) 2.5 mg INHALATION Q2H PRN PRN PRN Reason: Dyspnea, wheezing Atorvastatin Calcium (Lipitor) 80 mg PO QHS COUNTS INCLUDE 234 BEDS AT THE [facility] Last Admin: 11/28/19 20:27 Dose: 80 mg Documented by: Bisacodyl (Dulcolax) 20 mg PO 1400 ONE Stop: 11/29/19 14:01 Hydralazine HCl (Apresoline Iv) 10 mg IV Q4H PRN PRN PRN Reason: SBP > 160 Pantoprazole Sodium 40 mg/ (Sodium Chloride) 110 mls @ 330 mls/hr IV Q12 COUNTS INCLUDE 234 BEDS AT THE [facility] Last Infusion: 11/29/19 09:06 Dose: Infused Documented by: Multivitamins/Minerals (Multivitamin With Minerals (Bkc)) 1 tablet PO DAILY@0800 COUNTS INCLUDE 234 BEDS AT THE [facility] Last Admin: 11/29/19 08:42 Dose: 1 tablet Documented by: Nitroglycerin (Nitrostat) 0.4 mg SUBLINGUAL Q5M PRN PRN Reason: .CHEST PAIN Non-Formulary Medication (Valsartan) 40 mg PO QHS COUNTS INCLUDE 234 BEDS AT THE [facility] Ondansetron HCl (Zofran) 4 mg IV Q8H PRN PRN PRN Reason: NAUSEA/VOMITING Polyethylene Glycol (Clearlax For Bowel Prep) 0 bottle PO DAILY@1600 COUNTS INCLUDE 234 BEDS AT THE [facility] Stop: 11/30/19 16:01 Sodium Chloride () 10 - 40 ml IV UD PRN PRN Reason: SALINE FLUSH Last Admin: 11/28/19 16:21 Dose: 10 ml Documented by: STROKE Vital Signs/Narrative: Vital Signs Temp Pulse Resp BP Pulse Ox 11/29/19 08:41 98.7 F 83 18 95/70 98 11/29/19 08:24 95 Medical Necessity - Tobacco Use Smoking Status: Never smoker Tobacco Use: Non-smoker Assessment/Plan All Active Problems (Last Reviewed 06/22/19 @ 14:25 by Mandie Acosta) GI bleed (Acute) 1. Acute blood loss anemia 2/2 GI bleed unclear source. Hgb 9.2-->7.6. Gen surg following. upper and lower endoscopy tomorrow. 2 units on hold. hx hemorrhoids. 2. 2nd degree AV block - wenkebach - cardiology following. mild km. atenolol held. 3. CAD - prior stents, ischemic cardiomyopathy - no cardiac symptoms at this time. aspirin held. 4. CKDIII - sonali ruled out,creatinine elevation is mild. improved today. DVT ppx:SCDs This patient was seen by Alfredo Wagner PA-C under the supervision of Dr. Abreu
[2019-11-29] MEDS: Bisacodyl 5 MG Tablet 20 MG PO (13:32)
[2019-11-29] MEDS: Polyethylene Glycol 3350 BOWEL PREP PO (15:20)
--- NOTE | 2019-11-29 15:37 | CASEMGMT ---
Social Work Note SW received consult for substance abuse. Pt uses IV Meth. SW in to speak with pt. SW introduced self and role at [facility]. Pt is alert and orientated x3. Pt states that he had a 35 year old girlfriend that smokes meth and he uses it IV. Pt agreeable to taking resources. SW provided pt with substance abuse resources. Pt thanked this worker, denied additional needs or concerns at this time. Francisca Spencer HOUSEKEEPING LAUNDRY WORKER, CSM CONSULTANT
--- NOTE | 2019-11-29 17:54 | EKG12_ITS ---
Test Reason : RHYTHM CHANGE Blood Pressure : / mmHG Vent. Rate : 064 BPM Atrial Rate : 096 BPM P-R Int : 000 ms QRS Dur : 088 ms QT Int : 414 ms P-R-T Axes : 046 -42 045 degrees QTc Int : 427 ms Sinus rhythm with 2nd degree A-V block (Mobitz I) with occasional Premature ventricular complexes Left axis deviation Low voltage QRS Abnormal ECG When compared with ECG of 05-OCT-2007 07:02, MANUAL COMPARISON REQUIRED, DATA IS UNCONFIRMED Confirmed by CAPRI ARREGUIN, SB ([id number]), online editor PABLO SOL ([id number]) on 12/05/2019 12:43:40 PM Referred By: VIJAYA Confirmed By:SB FAROOQ MD
[2019-11-29 18:54] LABS: Amphetamine Urine VISTA NEGATIVE (<1000 ng/mL); Barbiturate Urine VISTA NEGATIVE (< 200 ng/mL); Benzodiazepine Urine VISTA NEGATIVE (< 200 ng/mL); Cocaine Urine VISTA NEGATIVE (< 300 ng/mL); Ecstacy Urine VISTA NEGATIVE (< 500 ng/mL); Methadone Urine VISTA NEGATIVE (< 300 ng/mL); PCP Urine VISTA NEGATIVE (< 25 ng/mL); THC Urine VISTA NEGATIVE (< 50 ng/mL); Vista UDS pH Range 6
[2019-11-29 20:43] LABS: Hematocrit 27.6 % (40-54); Hemoglobin 8.8 g/dL (13.0-16.5)
[2019-11-29] MEDS: VALSARTAN 80 MG TABLET 40 MG PO (21:04)
[2019-11-29] MEDS: Atorvastatin Calcium 80 MG Tablet PO (21:06)
[2019-11-29 22:01] LABS: HIV - WCH Non-Reactive (Nonreactive)
[2019-11-30] VITALS (15 sets, daily range): BP systolic 96–144; BP diastolic 62–97; PULSE 70–141; RESP 16–18; TEMP 36–37.4; O2SAT 98–100; BMI 24.8
[2019-11-30 02:40] LABS: Absolute Lymphocyte Count 1.22 X10^3/uL (0.83-4.51); Absolute Neutrophil Count 2.9 X10^3/uL (2.0-7.7); Basophil# 0.01 X10^3/uL; Basophil% 0.2 % (0-1); Eosinophil# 0.09 X10^3/uL; Eosinophils% 1.8 % (0-5); Hematocrit 25.9 % (40-54); Hemoglobin 8.6 g/dL (13.0-16.5); Lymphocyte # 1.22 X10^3/ul (4.0); Lymphocyte % 25.1 % (19-41); Mean Corp Hgb Conc 33.2 g/dL (32-36); Mean Corpuscular Hgb 30.4 pg (27.0-32.0); Mean Corpuscular Volume 91.5 fL (80-94); Mean Platelet Vol. 8.9 fl (6.2-12.0); Monocyte# 0.58 X10^3/uL; Monocyte% 11.9 % (0-10); NRBC Flagged by Analyzer 0 % (0-5); Neutrophil # 2.91 X10^3/uL (2.7-7.7); Neutrophil % 59.8 % (47-70); Platelet Count 178 K/mm3 (150-450); RBC Distribution Width CV 13.4 % (11.6-14.6); Red Blood Count 2.83 M/mm3 (4.6-6.2); White Blood Count 4.9 K/mm3 (4.4-11.0)
[2019-11-30 02:55] LABS: AST(SGOT) 19 U/L (15-37); Alanine Aminotransfer ALT/SGPT 17 U/L (16-61); Albumin, Serum 2.5 g/dL (3.2-5.0); Alkaline Phosphatase 65 U/L (45-117); Anion Gap 5 (5-15); BUN 14 mg/dL (7-18); BUN/Creat Ratio 11.1 RATIO (10-20); Calcium,Total 7.3 mg/dL (8.5-10.1); Chloride 118 mmol/L (98-107); Creatinine, Serum 1.26 mg/dL (0.70-1.30); EST Glomerular Filtration Rate 59 mL/min (>60); Est Glom Filt Rate - Afr Amer 72 mL/min (>60); Estimated Creatinine Clearance 48.09 ml/min; Globulin 2.5 g/dL (2.2-4.2); Glucose 93 mg/dL (74-106); Potassium 3.7 mmol/L (3.5-5.1); Sodium Level 146 mmol/L (136-145)
--- NOTE | 2019-11-30 08:37 | ECHOD_ITS ---
Reason For Study: ARRYTHYMIA Procedure This was a 2D Doppler, Color Flow transthoracic echocardiogram. The exam was of adequate technical quality. Exam performed portable in patient room. Left Ventricle Normal LV size. Mild segmental systolic dysfunction (see wall motion). The estimated ejection fraction is 45 %. No evidence for diastolic dysfunction. Lateral-Basal: Hypokinetic. Posterior- Basal: Akinetic. Infero-Basal: Akinetic. Mid-Lateral : Hypokinetic. Mid-Posterior: Hypokinetic. Mid- Inferior: Hypokinetic. Inferior [place] : Hypokinetic. Lateral [place] : Hypokinetic. Right Ventricle Normal RV size. Normal systolic function. Atria Normal left atrium. Normal right atrium. No doppler evidence for ASD. Mitral Valve There is no mitral annular calcification. Normal mitral valve. Trivial mitral valve insufficiency. Tricuspid Valve Normal tricuspid valve. Trivial tricuspid valve insufficiency. Right ventricular systolic pressure estimated to be 22 mmHg. Aortic Valve Trisinus/trileaflet aortic valve. Mild focal aortic valve calcification. Mild (1+) aortic valve insufficiency. Pulmonic Valve The pulmonic valve is not well visualized. Great Vessels Borderline to mildly enlarged aortic root. Pericardium/Pleural No pericardial effusion. MMode/2D Measurements & Calculations LVIDd: 4.4 cm IVSd: 0.99 cm Ao root diam: 3.9 cm LVIDs: 3.0 cm LVPWd: 1.0 cm RVDd: 3.3 cm FS: 30.4 % LAV(MOD-bp): 28.3 ml LVAd ap4: 29.1 cm2 SV(MOD-sp4): 47.0 ml LAV(MOD-bp) Indexed: 15.5 ml/m2 EDV(MOD-sp4): 89.2 ml LAV(MOD-sp2): 31.1 ml EDV(sp4-el): 92.9 ml LAV(MOD-sp4): 25.2 ml LVAs ap4: 17.8 cm2 ESV(MOD-sp4): 42.2 ml ESV(sp4-el): 40.8 ml EF(MOD-sp4): 52.7 % EF(sp4-el): 56.1 % SV(sp4-el): 52.1 ml LA A4 area: 11.4 cm2 LA dimension(2D): 3.4 cm RA A4 area: 10.0 cm2 Doppler Measurements & Calculations MV E max luis: 46.0 cm/sec Lat Peak E' Luis: 9.6 cm/sec Med Peak E' Luis: 6.1 cm/sec MV A max luis: 106.5 cm/sec E/E' lat: 4.8 E/E' med: 7.5 MV E/A: 0.43 Ao V2 max: 126.2 cm/sec AI max luis: 348.2 cm/sec LV V1 max: 89.6 cm/sec Ao max P.4 mmHg AI max P.5 mmHg LV V1 max P.2 mmHg AI dec slope: 152.0 cm/sec2 AI P1/2t: 671.2 msec PA V2 max: 115.3 cm/sec TR max luis: 219.8 cm/sec TR max P.4 mmHg Interpretation Summary Mild segmental systolic dysfunction (see wall motion). The estimated ejection fraction is 45 %. Trivial mitral valve insufficiency. Trivial tricuspid valve insufficiency. Mild focal aortic valve calcification. Mild (1+) aortic valve insufficiency. Borderline to mildly enlarged aortic root. Right ventricular systolic pressure estimated to be 22 mmHg. No evidence for diastolic dysfunction. Ordering Physician: Rudi Camacho Referring Physician: AMADO ZABALA Performed By: Marilee Oconnell RDCS
--- NOTE | 2019-11-30 08:38 | PN.CARD_ITS ---
Subjectve: The patient is awake and alert. He appears to be resting comfortably in the supine position. He denies any ongoing chest discomfort or difficulty br eathing. He has denied palpitations as well as any near-syncope or syncope. Objective: Vital Signs Temp Pulse Resp BP Pulse Ox 98.7 F 91 18 111/86 H 98 11/30/19 07:55 11/30/19 07:55 11/30/19 07:55 11/30/19 07:55 11/30/19 07:55 Oxygen Delivery Method Room Air Weight: 158 lb 11.725 oz Body Mass Index (BMI) 24.8 Intake and Output for Last 24 Hours 11/28/19 11/29/19 11/30/19 23:59 23:59 23:59 Intake Total 1000 / 1000 4647.08 / 4647.08 Balance 1000 / 1000 4647.08 / 4647.08 General: Awake, Alert, Oriented x 3, Cooperative, No Acute Distress HEENT: Atraumatic, Normocephalic, PERRL, EOMI, Sclera Non Icteric Neck: Supple, Good ROM, No JVD Lungs: Clear to auscultation Cardiovascular: Regular Rhythm, Normal S1, Normal S2 Abdomen: Bowel Sounds Present, Soft Extremities: No edema Neurological: No Focal Motor or Sensory Deficit Psych/Mental Status: Appropriate 11/29/19 10:40: Hgb 7.6 L, Hct 24.2 L 11/29/19 20:30: Hgb 8.8 L, Hct 27.6 L 11/30/19 02:30: WBC 4.9, RBC 2.83 L, Hgb 8.6 L, Hct 25.9 L, MCV 91.5, MCH 30.4, MCHC 33.2, Plt Count 178, MPV 8.9, Immature Gran % (Auto) 1.200 H, Neut % (Auto) 59.8, Lymph % (Auto) 25.1, [place] % (Auto) 11.9 H, Eos % (Auto) 1.8, Baso % (Auto) 0.2, Absolute Neuts (auto) 2.9, Nucleated RBC % 0 11/30/19 02:30: Sodium 146 H, Potassium 3.7, Chloride 118 H, Carbon Dioxide 23.0, Anion Gap 5, BUN 14, Creatinine 1.26, Est GFR (MDRD) Af Amer 72, Est GFR (MDRD) Non-Af 59 L, BUN/Creatinine Ratio 11.1, Glucose 93, Calcium 7.3 L, Total Bilirubin 0.60 Rhythm: Sinus rhythm; second-degree AV block [place] 1 block; 2-1 AV block Medical Necessity - Tobacco Use Smoking Status: Never smoker Tobacco Use: Non-smoker Assessment/Plan 1. Conduction system disorder The patient does have an underlying conduction system disorder. He has evidence of second-degree AV block [place] 1. He also has evidence of 2-1 AV block. At the present time he will remain off of all rate limiting medications. His cardiac rhythm will be followed. He will have an echocardiogram to reassess his left ventricular wall motion and overall systolic function/LVEF. Depending upon his clinical course he may or may not need some type of device either PPM or ICD. 2. CAD status post LCx PCI-remote He does not describe symptoms of ongoing angina pectoris. He will need to continue medical management as deemed appropriate taking into consideration but conduction system disorder. 3. Ischemic mediated cardiomyopathy He has been known to have a diminished LVEF in the past. This will be reassessed to assist in his ongoing cardiac evaluation and care. 4. Hyperlipidemia He should continue medical management as able. 5. Hypertension His blood pressure can be followed and his medications can be adjusted as need be taking into consideration concerns of underlying conduction system disorder. 6. Anemia He is undergoing evaluation for GI bleeding with upper and lower endoscopy today. This note was generated using a voice recognition system and there may be incorrect words, spelling or punctuation that were not noted when reviewing the office note prior to saving.
--- NOTE | 2019-11-30 08:45 | NURSING ---
to endo per bed
[2019-11-30] MEDS: Lactated Ringers 1,000 ML 100 ML IV (09:35)
--- NOTE | 2019-11-30 10:00 | HEM_PTH ---
PATIENT: CORONA SULLIVAN LOC: MS3 U#:[id number] AGE/SX: 74/M ROOM: TN311 RE11/29/[address]: Dr. Jigna Abreu MD : 1945 BED: 1 DIS: 12/02/2019 SPEC #: [id number] RECD: 12/04/19 07:48 STATUS: GEO GALVEZMartha #: [id number] FRANCES: 11/30/19 10:[address]: Crow Fierro DEPT: SURGICAL PATHOLOGY RECD BY: Alexi Bowen ENTERED: 12/04/19 10:54 SP TYPE: HEMORRHOID OTHR DR: MD Dr. Mike Samuel MD Dr. Liza D Talampas, MD Dr. Nana Yaa Koram, MD Tissues: HEMORRHOIDS Procedures: Surgery Specimen Level III HEADER OPERATION: Colonoscopy, E[place] [place] PRE-OP DIAGNOSIS: GI bleed TISSUE SUBMITTED: Left posterior hemorrhoid MICROSCOPIC DIAGNOSIS Left posterior hemorrhoid, hemorrhoidectomy: Submucosal vascular ectasia and thrombosis consistent with hemorrhoid. AM:clau 12/05/19 MICROSCOPIC DESCRIPTION Slides are reviewed. GROSS DESCRIPTION Received in fixative is one container labeled with the patient's name and designated posterior hemorrhoids. The specimen consists of a single glistening fragment of dark bird mucosa with attached hemorrhagic submucosal tissue measuring 2.5 x 1.5 x 1 cm. The specimen is bisected along its long axis and totally submitted in one cassette. / AM:clau 12/04/19 TC:5 CPT: 46955
--- NOTE | 2019-11-30 10:09 | PCM.PN.BLA ---
Progress Note I performed an EGD and colonoscopy on him today. Patient had no blood in his upper GI tract or colon. He did have hemorrhoids but they were not actively bleeding at the time of the scope. The patient reports he had blood all throughout his bowel prep yesterday. I will start the patient on clear liquids today. If he starts to rebleed I will take him for exam under anesthesia and possible hemorrhoidectomy tomorrow. Crow Fierro MD Pager: [facility] [address] [place] [address] [address] [place] [address] Office: STRO[facility] Vital Signs/Narrative: Vital Signs Temp Pulse Resp BP Pulse Ox 11/30/19 10:05 96.8 F L 98 16 96/76 99 11/30/19 07:55 98.7 F 91 18 111/86 H 98 11/30/19 07:28 141 H 11/30/19 06:30 86
--- NOTE | 2019-11-30 10:13 | OP.CCLET_ITS ---
11/30/2019 India Khan [address] [place] [address] Re : Upper GI endoscopy procedure for Farrukh Sherrytanmay Dear Dr. Khan This procedure was performed on November. My impressions and recommendations are as follows: Impressions : - Normal esophagus. - Normal stomach. - Normal examined duodenum. - No specimens collected. Recommendations : - Return patient to hospital [facility] for ongoing care. - Clear liquid diet. - Continue present medications. My findings are described in the full procedure note, which is enclosed. If I can be of further assistance, please feel free to contact me at Doctor phone number(s): , Work: . Sincerely, Crow Fierro MD 11/30/2019 10:12:54 AM This report has been signed electronically.
--- NOTE | 2019-11-30 10:13 | OP.EGD_ITS ---
Patient Name: Farrukh Mckeon Procedure Date: 11/30/2019 8:56 AM Date of : 1945 Age: 74 Procedure: Upper GI endoscopy Indications: Hematochezia Providers: Crow Fierro MD Medicines: Monitored Anesthesia Care Patient Profile: This is a 74 year old male. Refer to note in patient chart for documentation of history and physical. Complications: No immediate complications. Estimated blood loss: None. Procedure: Pre-Anesthesia Assessment: - Prior to the procedure, a History and Physical was performed, and patient medications and allergies were reviewed. The patient's tolerance of previous anesthesia was also reviewed. The risks and benefits of the procedure and the sedation options and risks were discussed with the patient. All questions were answered, and informed consent was obtained. Prior Anticoagulants: The patient has taken aspirin, last dose was 3 days prior to procedure. After reviewing the risks and benefits, the patient was deemed in satisfactory condition to undergo the procedure. After obtaining informed consent, the endoscope was passed under direct vision. Throughout the procedure, the patient's blood pressure, pulse, and oxygen saturations were monitored continuously. The gastroscope was introduced through the mouth, and advanced to the fourth part of duodenum. The upper GI endoscopy was accomplished without difficulty. The patient tolerated the procedure well. Scope In: 9:40:34 AM Scope Out: 9:42:18 AM Total Procedure Duration Time 0 hours 1 minute 44 seconds Findings: The esophagus was normal. The stomach was normal. The examined duodenum was normal. Impression: - Normal esophagus. - Normal stomach. - Normal examined duodenum. - No specimens collected. Recommendation: - Return patient to hospital [facility] for ongoing care. - Clear liquid diet. - Continue present medications. Procedure Code(s): --- Professional --- 21090, Esophagogastroduodenoscopy, flexible, transoral; diagnostic, including collection of specimen(s) by brushing or washing, when performed (separate procedure) Diagnosis Code(s): --- Professional --- K92.1, Melena (includes Hematochezia) CPT copyright 2017 [employer]. All rights reserved. The codes documented in this report are preliminary and upon skilled helper review may be revised to meet current compliance requirements. Crow Fierro MD 11/30/2019 10:12:54 AM This report has been signed electronically. Number of Addenda: 0 Note Initiated On: 11/30/2019 8:56 AM
--- NOTE | 2019-11-30 10:16 | OP.CCLET_ITS ---
11/30/2019 India Khan [address] [place] [address] Re : Colonoscopy procedure for Farrukh Mckeon Dear Dr. Khan This procedure was performed on November. My impressions and recommendations are as follows: Impressions : - Non-bleeding internal hemorrhoids. - The entire examined colon is normal on direct and retroflexion views. - No specimens collected. Recommendations : - Return patient to hospital cint[facility] for ongoing care. - Clear liquid diet. - Continue present medications. - No repeat colonoscopy due to current age (66 years or older). My findings are described in the full procedure note, which is enclosed. If I can be of further assistance, please feel free to contact me at Doctor phone number(s): , Work: . Sincerely, Crow Fierro MD 11/30/2019 10:15:39 AM This report has been signed electronically.
--- NOTE | 2019-11-30 10:16 | OP.COLON_ITS ---
Patient Name: Farrukh Mckeon Procedure Date: 11/30/2019 9:42 AM Date of : 1945 Age: 74 Procedure: Colonoscopy Indications: Hematochezia Providers: Crow Fierro MD Medicines: Monitored Anesthesia Care Patient Profile: This is a 74 year old male. Refer to note in patient chart for documentation of history and physical. Last Colonoscopy: more than 3 years ago. Complications: No immediate complications. Procedure: Pre-Anesthesia Assessment: - Prior to the procedure, a History and Physical was performed, and patient medications and allergies were reviewed. The patient's tolerance of previous anesthesia was also reviewed. The risks and benefits of the procedure and the sedation options and risks were discussed with the patient. All questions were answered, and informed consent was obtained. Prior Anticoagulants: The patient has taken aspirin, last dose was 3 days prior to procedure. After reviewing the risks and benefits, the patient was deemed in satisfactory condition to undergo the procedure. After I obtained informed consent, the scope was passed under direct vision. Throughout the procedure, the patient's blood pressure, pulse, and oxygen saturations were monitored continuously. The colonoscope was introduced through the anus and advanced to the cecum, identified by appendiceal orifice and ileocecal valve. The colonoscopy was performed without difficulty. The patient tolerated the procedure well. The quality of the bowel preparation was good. Scope In: 9:45:13 AM Scope Withdrawal Time 0 hours 5 minutes 14 seconds Scope Out: 9:55:52 AM Total Procedure Duration Time 0 hours 10 minutes 39 seconds Findings: Non-bleeding internal hemorrhoids were found during retroflexion. The hemorrhoids were moderate. The entire examined colon appeared normal on direct and retroflexion views. There was no blood in the colon or stigmata of bleeding. Impression: - Non-bleeding internal hemorrhoids. - The entire examined colon is normal on direct and retroflexion views. - No specimens collected. Recommendation: - Return patient to hospital cint[facility] for ongoing care. - Clear liquid diet. - Continue present medications. - No repeat colonoscopy due to current age (66 years or older). Procedure Code(s): --- Professional --- 45226, Colonoscopy, flexible; diagnostic, including collection of specimen(s) by brushing or washing, when performed (separate procedure) Diagnosis Code(s): --- Professional --- K64.8, Other hemorrhoids K92.1, Melena (includes Hematochezia) CPT copyright 2017 [employer]. All rights reserved. The codes documented in this report are preliminary and upon bladder trimmer review may be revised to meet current compliance requirements. Crow Fierro MD 11/30/2019 10:15:39 AM This report has been signed electronically. Number of Addenda: 0 Note Initiated On: 11/30/2019 9:42 AM
--- NOTE | 2019-11-30 12:23 | PN_ITS ---
Patient Problems: Active and Suspected Problems (Last Reviewed 06/22/19 @ 14:25 by Mandie Acosta) GI bleed (Acute) Subjective: Patient seen and examined. Underwent EGD/colonoscopy this morning with no evidence of active bleeding. Patient denies further bleeding per rectum. Denies nausea, vomiting, abdominal pain. - Physical Exam Vitals/I&O's: Vital Signs Temp Pulse Resp BP Pulse Ox 98.2 F 88 18 130/86 H 99 11/30/19 10:54 11/30/19 10:54 11/30/19 10:54 11/30/19 10:54 11/30/19 10:54 Oxygen Delivery Method Room Air Weight: 158 lb 11.725 oz Body Mass Index (BMI) 24.8 Intake and Output for Last 24 Hours 11/28/19 11/29/19 11/30/19 23:59 23:59 23:59 Intake Total 1000 / 1000 4647.08 / 4647.08 110 / 110 Balance 1000 / 1000 4647.08 / 4647.08 110 / 110 General: Alert, Oriented x3, Cooperative HEENT: Atraumatic, PERRLA, EOMI, Normocephalic Neck: Supple, No JVD, Negative Carotid Bruits Lungs: Clear to auscultation, Normal air movement Cardiovascular: Regular rate, No murmurs Abdomen: Bowel Sounds Present, Soft, Non Tender, Non-Distended Extremities: No clubbing, No cyanosis, No edema, Capillary Refill Less than 3 Seconds Skin: No rashes, No breakdown Musculoskeletal: No Tenderness to Palpation of Joints or Extremities Neurological: Cranial nerves II-XII grossly intact, Neuro grossly intact Psych/Mental Status: Normal Affect, Appropriate Laboratory Results 11/28/19 14:40: Crossmatch See Detail 11/29/19 18:00: Urine Opiates Screen NEGATIVE, Urine Methadone Screen NEGATIVE, Ur Barbiturates Screen NEGATIVE, Ur Phencyclidine Scrn NEGATIVE, Ur Amphetamines Screen NEGATIVE, U Methamphetamin-MDMA NEGATIVE, U Benzodiazepines Scrn NEGATIVE, Urine Cocaine Screen NEGATIVE, U Cannabinoids Screen NEGATIVE, Ur Drug Screen Comment 11/29/19 20:30: Hepatitis A IgM Ab Pending, Hepatitis A Ab Total Pending, Hep Bs Antigen Pending, Hep B Core Total Ab Pending, Hep B Core IgM Ab Pending 11/29/19 20:30: HIV 1&2 Antibody Non-Reactive 11/29/19 20:30: Hgb 8.8 L, Hct 27.6 L 11/30/19 02:30: WBC 4.9, RBC 2.83 L, Hgb 8.6 L, Hct 25.9 L, MCV 91.5, MCH 30.4, MCHC 33.2, RDW Std Deviation 45.0 H, RDW Coeff of Rafael 13.4, Plt Count 178, MPV 8.9, Immature Gran % (Auto) 1.200 H, Neut % (Auto) 59.8, Lymph % (Auto) 25.1, [place] % (Auto) 11.9 H, Eos % (Auto) 1.8, Baso % (Auto) 0.2, Absolute Neuts (auto) 2.9, Absolute Lymphs (auto) 1.22, Nucleated RBC % 0 11/30/19 02:30: Sodium 146 H, Potassium 3.7, Chloride 118 H, Carbon Dioxide 23.0, Anion Gap 5, BUN 14, Creatinine 1.26, Estim Creat Clear Calc 48.09, Est GFR (MDRD) Af Amer 72, Est GFR (MDRD) Non-Af 59 L, BUN/Creatinine Ratio 11.1, Glucose 93, Calcium 7.3 L, Total Bilirubin 0.60, AST 19, ALT 17, Alkaline Phosphatase 65, Total Protein 5.0 L, Albumin 2.5 L, Globulin 2.5, Albumin/Globulin Ratio 1.0 Current Medications Acetaminophen (Tylenol) 650 mg PO Q6H PRN PRN PRN Reason: Pain Score 1-10/10 Last Admin: 11/29/19 13:32 Dose: 650 mg Documented by: Albuterol Sulfate (Ventolin Aerosols) 2.5 mg INHALATION Q2H PRN PRN PRN Reason: Dyspnea, wheezing Atorvastatin Calcium (Lipitor) 80 mg PO QHS [facility] Last Admin: 11/29/19 21:06 Dose: 80 mg Documented by: Hydralazine HCl (Apresoline) 50 mg PO TID PRN PRN PRN Reason: BLOOD PRESSURE Pantoprazole Sodium 40 mg/ (Sodium Chloride) 110 mls @ 330 mls/hr IV Q12 [facility] Last Infusion: 11/30/19 10:58 Dose: Infused Documented by: Lactated Ringer's () 1,000 mls @ 100 mls/hr IV .Q10H [facility] Last Admin: 11/30/19 09:35 Dose: 100 mls/hr Documented by: Multivitamins/Minerals (Multivitamin With Minerals (Bkc)) 1 tablet PO DAILY@0800 [facility] Last Admin: 11/30/19 07:57 Dose: Not Given Documented by: Nitroglycerin (Nitrostat) 0.4 mg SUBLINGUAL Q5M PRN PRN Reason: .CHEST PAIN Ondansetron HCl (Zofran) 4 mg IV Q8H PRN PRN PRN Reason: NAUSEA/VOMITING Polyethylene Glycol (Clearlax For Bowel Prep) 0 bottle PO DAILY@1600 [facility] Stop: 11/30/19 16:01 Last Admin: 11/30/19 10:58 Dose: Not Given Documented by: Sodium Chloride () 10 - 40 ml IV UD PRN PRN Reason: SALINE FLUSH Last Admin: 11/28/19 16:21 Dose: 10 ml Documented by: Valsartan (Diovan) 40 mg PO QHS [facility] Last Admin: 11/29/19 21:04 Dose: 40 mg Documented by: Medical Necessity - Tobacco Use Smoking Status: Never smoker Tobacco Use: Non-smoker Assessment/Plan All Active Problems (Last Reviewed 06/22/19 @ 14:25 by Mandie Acosta) GI bleed (Acute) 1. Acute GI bleed with acute blood loss anemia-colonoscopy demonstrated nonbleeding hemorrhoids. EGD unremarkable. Trend H&H. Continue IV PPI. Clear liquids. If patient has recurrent bleeding, possible hemorrhoidectomy tomorrow. 2. Second-degree AV block-cardiology consulted. Continue to hold rate limiting medications. Repeat echocardiogram pending. 3. Ischemic cardiomyopathy-echocardiogram May 2018 demonstrated an EF of 40%. Repeat echo pending. 4. Chronic kidney disease stage III-at baseline. 5. Hypertension-stable, atenolol on hold. 6. Hyperlipidemia-continue statin. 7. IV drug use-reports recent cessation. Denies withdrawal symptoms. Tox screen negative. Hepatitis panel pending. DVT prophylaxis- SCDs. This patient was seen by SHANKAR Velez under the supervision of Dr. Abreu.
--- NOTE | 2019-11-30 14:57 | PCM.PN.BLA ---
Progress Note Pt has had no bleeding since scope. Will try regular diet. If there is any bleeding between now and tomorrow make pt NPO for hemorrhoidectomy. Crow Fierro STROKE Vital Signs/Narrative: Vital Signs Temp Pulse Resp BP Pulse Ox 11/30/19 12:51 97.9 F 99 18 144/87 H 100
[2019-11-30] MEDS: 0.9% Saline Lock 10 ML Syringe IV (21:09)
[2019-11-30] MEDS: VALSARTAN 80 MG TABLET 40 MG PO (21:10)
[2019-11-30] MEDS: Atorvastatin Calcium 80 MG Tablet PO (21:11)
[2019-12-01] VITALS (22 sets, daily range): BP systolic 104–136; BP diastolic 53–87; PULSE 59–104; RESP 16–18; TEMP 36.3–37.3; O2SAT 98–100; BMI 24.8; BMI 25.1
[2019-12-01] MEDS: 0.9% Normal Saline 1,000 ML 100 ML IV ×2 (00:02→16:47)
[2019-12-01 05:07] LABS: HEPATITIS B SURFACE AG Negative (Negative); Hepatitis A AB, Total Negative (Negative); Hepatitis A IgM Antibody Negative (Negative); Hepatitis B Core AB IgM Negative (Negative); Hepatitis B Core Ab Total Negative (Negative); Hepatitis C Ab <0.1 s/co ratio (0.0-0.9)
[2019-12-01 05:27] LABS: Absolute Lymphocyte Count 1.36 X10^3/uL (0.83-4.51); Absolute Neutrophil Count 3.9 X10^3/uL (2.0-7.7); Basophil# 0.01 X10^3/uL; Basophil% 0.2 % (0-1); Eosinophils% 3.1 % (0-5); Hematocrit 24.6 % (40-54); Hemoglobin 7.9 g/dL (13.0-16.5); Lymphocyte # 1.36 X10^3/ul (4.0); Mean Corp Hgb Conc 32.1 g/dL (32-36); Mean Corpuscular Hgb 30.2 pg (27.0-32.0); Mean Corpuscular Volume 93.9 fL (80-94); Mean Platelet Vol. 8.8 fl (6.2-12.0); Monocyte% 13.9 % (0-10); NRBC Flagged by Analyzer 0 % (0-5); Neutrophil # 3.93 X10^3/uL (2.7-7.7); Neutrophil % 60.7 % (47-70); Platelet Count 154 K/mm3 (150-450); RBC Distribution Width CV 13.4 % (11.6-14.6); RBC Distribution Width SD 46.5 fl (35.1-43.9); Red Blood Count 2.62 M/mm3 (4.6-6.2); White Blood Count 6.5 K/mm3 (4.4-11.0)
[2019-12-01 05:45] LABS: AST(SGOT) 18 U/L (15-37); Alanine Aminotransfer ALT/SGPT 17 U/L (16-61); Albumin, Serum 2.4 g/dL (3.2-5.0); Alkaline Phosphatase 65 U/L (45-117); Anion Gap 4 (5-15); BUN 15 mg/dL (7-18); BUN/Creat Ratio 11.3 RATIO (10-20); Calcium,Total 7.1 mg/dL (8.5-10.1); Chloride 116 mmol/L (98-107); Creatinine, Serum 1.33 mg/dL (0.70-1.30); EST Glomerular Filtration Rate 56 mL/min (>60); Est Glom Filt Rate - Afr Amer 68 mL/min (>60); Estimated Creatinine Clearance 45.56 ml/min; Globulin 2.4 g/dL (2.2-4.2); Glucose 98 mg/dL (74-106); Potassium 3.6 mmol/L (3.5-5.1); Protein, Total 4.8 g/dL (6.4-8.2); Sodium Level 145 mmol/L (136-145)
--- NOTE | 2019-12-01 07:17 | PCM.PN.SRG ---
Patient Problems: Active and Suspected Problems (Last Reviewed 06/22/19 @ 14:25 by Mandie Acosta) GI bleed (Acute) Subjective: Patient continued to have bleeding while trying to have a bowel movement yesterday afternoon. He also says that he sounded toilet this morning and had blood come out. - Physical Exam Vitals/I&O's: Vital Signs Temp Pulse Resp BP Pulse Ox 97.9 F 97 16 104/87 H 100 12/01/19 02:15 12/01/19 04:22 12/01/19 02:15 12/01/19 02:15 12/01/19 02:15 Oxygen Delivery Method Room Air Weight: 158 lb 11.725 oz Body Mass Index (BMI) 24.8 Intake and Output for Last 24 Hours 11/29/19 11/30/19 12/01/19 23:59 23:59 23:59 Intake Total 4647.08 / 4647.08 1503.33 / 1503.33 Balance 4647.08 / 4647.08 1503.33 / 1503.33 General: Alert, Oriented x3 Lungs: Clear to auscultation Cardiovascular: Regular rate, Regular Rhythm Abdomen: Soft, Non Tender, Non-Distended Laboratory Results 11/28/19 14:40: Crossmatch See Detail 12/01/19 05:15: WBC 6.5, RBC 2.62 L, Hgb 7.9 L, Hct 24.6 L, MCV 93.9, MCH 30.2, MCHC 32.1, RDW Std Deviation 46.5 H, RDW Coeff of Rafael 13.4, Plt Count 154, MPV 8.8, Immature Gran % (Auto) 1.100 H, Neut % (Auto) 60.7, Lymph % (Auto) 21.0, [place] % (Auto) 13.9 H, Eos % (Auto) 3.1, Baso % (Auto) 0.2, Absolute Neuts (auto) 3.9, Absolute Lymphs (auto) 1.36, Nucleated RBC % 0 12/01/19 05:15: Sodium 145, Potassium 3.6, Chloride 116 H, Carbon Dioxide 25.0, Anion Gap 4 L, BUN 15, Creatinine 1.33 H, Estim Creat Clear Calc 45.56, Est GFR (MDRD) Af Amer 68, Est GFR (MDRD) Non-Af 56 L, BUN/Creatinine Ratio 11.3, Glucose 98, Calcium 7.1 L, Total Bilirubin 0.40, AST 18, ALT 17, Alkaline Phosphatase 65, Total Protein 4.8 L, Albumin 2.4 L, Globulin 2.4, Albumin/Globulin Ratio 1.0 Current Medications Acetaminophen (Tylenol) 650 mg PO Q6H PRN PRN PRN Reason: Pain Score 1-10/10 Last Admin: 11/29/19 13:32 Dose: 650 mg Documented by: Albuterol Sulfate (Ventolin Aerosols) 2.5 mg INHALATION Q2H PRN PRN PRN Reason: Dyspnea, wheezing Atorvastatin Calcium (Lipitor) 80 mg PO QHS [facility] Last Admin: 11/30/19 21:11 Dose: 80 mg Documented by: Hydralazine HCl (Apresoline) 50 mg PO TID PRN PRN PRN Reason: BLOOD PRESSURE Pantoprazole Sodium 40 mg/ (Sodium Chloride) 110 mls @ 330 mls/hr IV Q12 [facility] Last Infusion: 11/30/19 21:28 Dose: Infused Documented by: Sodium Chloride () 1,000 mls @ 100 mls/hr IV .Q10H [facility] Last Admin: 12/01/19 00:02 Dose: 100 mls/hr Documented by: Multivitamins/Minerals (Multivitamin With Minerals (Bkc)) 1 tablet PO DAILY@0800 [facility] Last Admin: 11/30/19 07:57 Dose: Not Given Documented by: Nitroglycerin (Nitrostat) 0.4 mg SUBLINGUAL Q5M PRN PRN Reason: .CHEST PAIN Ondansetron HCl (Zofran) 4 mg IV Q8H PRN PRN PRN Reason: NAUSEA/VOMITING Sodium Chloride () 10 - 40 ml IV UD PRN PRN Reason: SALINE FLUSH Last Admin: 11/30/19 21:09 Dose: 10 ml Documented by: Valsartan (Diovan) 40 mg PO QHS [facility] Last Admin: 11/30/19 21:10 Dose: 40 mg Documented by: Medical Necessity - Tobacco Use Smoking Status: Never smoker Tobacco Use: Non-smoker Assessment/Plan All Active Problems (Last Reviewed 06/22/19 @ 14:25 by Mandie Acosta) GI bleed (Acute) 74-year-old male with GI bleed, possibly hemorrhoidal 1. The patient reports continued bleeding. He had EGD and colonoscopy which revealed no blood or stigmata of bleeding. Patient did have hemorrhoids and is likely having continued hemorrhoidal bleeding. 2. At this time I did recommend hemorrhoidectomy. I believe the patient is bleeding from his hemorrhoids as there was no source of bleeding identified or stigmata of bleeding on colonoscopy or EGD. I discussed hemorrhoidectomy with the patient in detail. I discussed the risks including but not limited to bleeding, infection, stroke or heart attack from general anesthesia, incontinence or continued bleeding. Patient understands the risks and is well to proceed with hemorrhoidectomy today. Crow Fierro MD Pager: [facility] [address] [place] [address] [address] [place] [address] Office:
[2019-12-01 09:47] LABS: Hep B Surface Antibodies Non Reactive (.)
--- NOTE | 2019-12-01 11:33 | PN_ITS ---
Patient Problems: Active and Suspected Problems (Last Reviewed 06/22/19 @ 14:25 by Mandie Acosta) GI bleed (Acute) Subjective: Patient seen and examined. Patient had further rectal bleeding overnight with drop in hemoglobin. Plan for hemorrhoidectomy this afternoon. - Physical Exam Vitals/I&O's: Vital Signs Temp Pulse Resp BP Pulse Ox 98.1 F 95 18 133/85 H 100 12/01/19 10:36 12/01/19 11:25 12/01/19 10:36 12/01/19 10:36 12/01/19 10:36 Oxygen Delivery Method Room Air Weight: 158 lb 11.725 oz Body Mass Index (BMI) 24.8 Intake and Output for Last 24 Hours 11/29/19 11/30/19 12/01/19 23:59 23:59 23:59 Intake Total 4647.08 / 4647.08 1503.33 / 1503.33 811.67 / 811.67 Balance 4647.08 / 4647.08 1503.33 / 1503.33 811.67 / 811.67 General: Alert, Oriented x3, Cooperative HEENT: Atraumatic, PERRLA, EOMI, Normocephalic Neck: Supple, No JVD, Negative Carotid Bruits Lungs: Clear to auscultation, Normal air movement Cardiovascular: Regular rate, No murmurs Abdomen: Bowel Sounds Present, Soft, Non Tender Extremities: No clubbing, No cyanosis, No edema, Capillary Refill Less than 3 Seconds Skin: No rashes, No breakdown Musculoskeletal: No Tenderness to Palpation of Joints or Extremities Neurological: Cranial nerves II-XII grossly intact, Neuro grossly intact Psych/Mental Status: Normal Affect, Appropriate Laboratory Results 11/28/19 14:40: Crossmatch See Detail 11/28/19 14:40: Crossmatch See Detail 11/29/19 20:30: Hepatitis A IgM Ab Negative, Hepatitis A Ab Total Negative, Hep Bs Antigen Negative, Hep B Core Total Ab Negative, Hep B Core IgM Ab Negative, Hepatitis C Ab Confirm <0.1, Hep C Confirm Com 1 Comment 12/01/19 05:15: WBC 6.5, RBC 2.62 L, Hgb 7.9 L, Hct 24.6 L, MCV 93.9, MCH 30.2, MCHC 32.1, RDW Std Deviation 46.5 H, RDW Coeff of Rafael 13.4, Plt Count 154, MPV 8.8, Immature Gran % (Auto) 1.100 H, Neut % (Auto) 60.7, Lymph % (Auto) 21.0, [place] % (Auto) 13.9 H, Eos % (Auto) 3.1, Baso % (Auto) 0.2, Absolute Neuts (auto) 3.9, Absolute Lymphs (auto) 1.36, Nucleated RBC % 0 12/01/19 05:15: Sodium 145, Potassium 3.6, Chloride 116 H, Carbon Dioxide 25.0, Anion Gap 4 L, BUN 15, Creatinine 1.33 H, Estim Creat Clear Calc 45.56, Est GFR (MDRD) Af Amer 68, Est GFR (MDRD) Non-Af 56 L, BUN/Creatinine Ratio 11.3, Glucose 98, Calcium 7.1 L, Total Bilirubin 0.40, AST 18, ALT 17, Alkaline Phosphatase 65, Total Protein 4.8 L, Albumin 2.4 L, Globulin 2.4, Albumin/Globulin Ratio 1.0 Current Medications Acetaminophen (Tylenol) 650 mg PO Q6H PRN PRN PRN Reason: Pain Score 1-1010 Last Admin: 11/29/19 13:32 Dose: 650 mg Documented by: Albuterol Sulfate (Ventolin Aerosols) 2.5 mg INHALATION Q2H PRN PRN PRN Reason: Dyspnea, wheezing Atorvastatin Calcium (Lipitor) 80 mg PO QHS [facility] Last Admin: 11/30/19 21:11 Dose: 80 mg Documented by: Hydralazine HCl (Apresoline) 50 mg PO TID PRN PRN PRN Reason: BLOOD PRESSURE Pantoprazole Sodium 40 mg/ (Sodium Chloride) 110 mls @ 330 mls/hr IV Q12 [facility] Last Infusion: 11/30/19 21:28 Dose: Infused Documented by: Sodium Chloride () 1,000 mls @ 100 mls/hr IV .Q10H [facility] Last Infusion: 12/01/19 08:09 Dose: 0 mls/hr Documented by: Cefotetan Disodium 2 gm/ (Sodium Chloride) 100 mls @ 200 mls/hr IV SEND TO [facility] W/PATIENT ONE Stop: 12/01/19 13:19 Multivitamins/Minerals (Multivitamin With Minerals (Bkc)) 1 tablet PO DAILY@0800 [facility] Last Admin: 12/01/19 08:03 Dose: Not Given Documented by: Nitroglycerin (Nitrostat) 0.4 mg SUBLINGUAL Q5M PRN PRN Reason: .CHEST PAIN Ondansetron HCl (Zofran) 4 mg IV Q8H PRN PRN PRN Reason: NAUSEA/VOMITING Sodium Chloride () 10 - 40 ml IV UD PRN PRN Reason: SALINE FLUSH Last Admin: 11/30/19 21:09 Dose: 10 ml Documented by: Valsartan (Diovan) 40 mg PO QHS [facility] Last Admin: 11/30/19 21:10 Dose: 40 mg Documented by: Medical Necessity - Tobacco Use Smoking Status: Never smoker Tobacco Use: Non-smoker Assessment/Plan All Active Problems (Last Reviewed 06/22/19 @ 14:25 by Mandie Acosta) GI bleed (Acute) 1. Acute GI bleed with acute blood loss anemia-colonoscopy demonstrated nonbleeding hemorrhoids. EGD unremarkable. Trend H&H. Continue IV PPI. Given recurrent bleeding per rectum and drop in hemoglobin, patient to undergo hemorrhoidectomy today. Additional 1 unit PRBC ordered. Plan to monitor H&H overnight. Possible discharge home if hemoglobin remains stable following hemorrhoidectomy. 2. Second-degree AV block-cardiology consulted. Continue to hold rate limiting medications. Echocardiogram demonstrates an EF of 45%, mild aortic valve insufficiency. 3. Ischemic cardiomyopathy-echocardiogram May 2018 demonstrated an EF of 40%. Repeat echo as noted above. 4. Chronic kidney disease stage III-at baseline. 5. Hypertension-stable, atenolol on hold. 6. Hyperlipidemia-continue statin. 7. IV drug use-reports recent cessation. Denies withdrawal symptoms. Tox screen negative. Hepatitis panel negative. DVT prophylaxis- SCDs. This patient was seen by SHANKAR Velez under the supervision of Dr. Abreu.
[2019-12-01] MEDS: Lubricating Jelly 60 GM Tube 30 GM TOPICAL (12:52)
[2019-12-01] MEDS: Dibucaine 30 GM Tube 1 APPLIC (13:00)
--- NOTE | 2019-12-01 13:25 | PCM.OPRPT ---
Problem List (1) GI bleed Status: Acute Qualifiers: GI bleed type/associated pathology: anorectal hemorrhage Qualified Code(s): K62.5 - Hemorrhage of anus and rectum Report of Operation Date of Procedure: 12/01/19 Pre-Operative Diagnosis: Anal hemorrhage Post-Operative Diagnosis: Same Surgery/Procedure Performed:: Hemorrhoidectomy, internal and external 1 column Specimen's removed: Posterior left hemorrhoid column Description of Procedure: Patient was brought back to the operating room and general anesthesia was induced. The patient was placed in a prone jackknife position and the perirectal area was prepped and draped in usual sterile fashion. Using a well lubricated speculum the rectal vault was inspected. There is no active bleeding. There was a hemorrhoid in the posterior left column. This was removed using a harmonic scalpel and then the mucosa was reapproximated using a running locked 3-0 chromic suture. There was good hemostasis. Rolled up Gelfoam was placed into the rectal vault covered in dibucaine cream. Local anesthetic was injected around the hemorrhoid. Patient was then rolled back onto his back and extubated. The patient was taken to PACU in stable condition and tolerated the procedure well. Grafts/Implants Used: Rolled Gelfoam in the rectal vault - Admit VTE Documentation VTE Mechan Device Prophylaxis: SCD's
--- NOTE | 2019-12-01 17:00 | PCM.PN.CARD ---
Subjectve: The patient was evaluated earlier this day-preoperative. At that time he was resting comfortably with no acute cardiovascular complaints. Objective: Vital Signs Temp Pulse Resp BP Pulse Ox 98.0 F 78 18 122/78 H 100 12/01/19 16:47 12/01/19 16:47 12/01/19 16:47 12/01/19 16:47 12/01/19 16:47 Oxygen Delivery Method Room Air Weight: 158 lb 11.725 oz Body Mass Index (BMI) 24.8 Intake and Output for Last 24 Hours 11/29/19 11/30/19 12/01/19 23:59 23:59 23:59 Intake Total 4647.08 / 4647.08 1503.33 / 1503.33 1605.00 / 1605.00 Balance 4647.08 / 4647.08 1503.33 / 1503.33 1605.00 / 1605.00 General: Awake, Alert, Oriented x 3, Cooperative, No Acute Distress HEENT: Atraumatic, Normocephalic, PERRL, EOMI, Sclera Non Icteric Neck: No JVD Lungs: Clear to auscultation Cardiovascular: Regular Rhythm, Normal S1, Normal S2 Abdomen: Bowel Sounds Present, Soft Extremities: No edema Neurological: No Focal Motor or Sensory Deficit Psych/Mental Status: Appropriate 12/01/19 05:15: WBC 6.5, RBC 2.62 L, Hgb 7.9 L, Hct 24.6 L, MCV 93.9, MCH 30.2, MCHC 32.1, Plt Count 154, MPV 8.8, Immature Gran % (Auto) 1.100 H, Neut % (Auto) 60.7, Lymph % (Auto) 21.0, [place] % (Auto) 13.9 H, Eos % (Auto) 3.1, Baso % (Auto) 0.2, Absolute Neuts (auto) 3.9, Nucleated RBC % 0 12/01/19 05:15: Sodium 145, Potassium 3.6, Chloride 116 H, Carbon Dioxide 25.0, Anion Gap 4 L, BUN 15, Creatinine 1.33 H, Est GFR (MDRD) Af Amer 68, Est GFR (MDRD) Non-Af 56 L, BUN/Creatinine Ratio 11.3, Glucose 98, Calcium 7.1 L, Total Bilirubin 0.40 Rhythm: Sinus rhythm; episodes of second-degree AV block [place] 1 and episodes of 2-1 AV block Echocardiogram: Interpretation Summary Mild segmental systolic dysfunction (see wall motion). The estimated ejection fraction is 45 %. Trivial mitral valve insufficiency. Trivial tricuspid valve insufficiency. Mild focal aortic valve calcification. Mild (1+) aortic valve insufficiency. Borderline to mildly enlarged aortic root. Right ventricular systolic pressure estimated to be 22 mmHg. No evidence for diastolic dysfunction. Medical Necessity - Tobacco Use Smoking Status: Never smoker Tobacco Use: Non-smoker Assessment/Plan 1. Conduction system disorder The patient does have an underlying conduction system disorder. He has evidence of second-degree AV block [place] 1. He also has evidence of 2-1 AV block. At the present time he will remain off of all rate limiting medications. His cardiac rhythm will be followed. He has undergone additional evaluation with a transthoracic echocardiogram. His estimated LVEF was approximately 45%. At the present time he will remain without beta-tanisha therapy. His rhythm will be followed. Depending upon his rhythm without beta-tanisha therapy he still may need to be considered for future permanent pacemaker placement-once he has recuperated from his general surgical procedure and there are no postoperative concerns, etc. 2. CAD status post LCx PCI-remote He does not describe symptoms of ongoing angina pectoris. He should continue cardiovascular risk factor evaluation care as deemed appropriate. 3. Ischemic mediated cardiomyopathy His estimated LVEF is approximately 45% which is similar to his previous studies. At the moment he will continue medical management with the exception of beta-tanisha therapy. 4. Hyperlipidemia He should continue medical management as able. 5. Hypertension His blood pressure can be followed and his medications can be adjusted as need be taking into consideration concerns of underlying conduction system disorder. 6. Anemia He is now status post EGD and colonoscopy and subsequent hemorrhoidectomy for his GI bleeding. He will continue to be followed by internal medicine and general surgery. This note was generated using a voice recognition system and there may be incorrect words, spelling or punctuation that were not noted when reviewing the office note prior to saving.
--- NOTE | 2019-12-01 19:50 | NURSING ---
this rn attempted to straight cath pt. pt did not tolerate and was yelling at this RN to stop, kicking legs and grabbing at catheter. this rn removed urinary straight cath and educated pt regarding urinary retention. pt refuses further straight cath and says i'll just keep doing what i'm doing, i'm not going through that
[2019-12-01] MEDS: Acetaminophen 325 MG Tablet 650 MG PO (20:08)
[2019-12-01] MEDS: VALSARTAN 80 MG TABLET 40 MG PO (21:34)
[2019-12-01] MEDS: Atorvastatin Calcium 80 MG Tablet PO (21:35)
[2019-12-02 00:56] LABS: Magnesium 1.6 mg/dL (1.6-2.6); Phosphorus 2.2 mg/dL (2.5-4.9)
[2019-12-02 03:10] VITALS: PULSE 39
[2019-12-02 04:00] VITALS: PULSE 63
[2019-12-02 04:55] VITALS: BP 144/92; PULSE 82; RESP 18; TEMP 36.7; O2SAT 99
[2019-12-02] MEDS: 0.9% Normal Saline 1,000 ML 100 ML IV (05:17)
[2019-12-02 06:40] LABS: Absolute Lymphocyte Count 0.85 X10^3/uL (0.83-4.51); Absolute Neutrophil Count 3.9 X10^3/uL (2.0-7.7); Basophil# 0.01 X10^3/uL; Basophil% 0.2 % (0-1); Eosinophil# 0.21 X10^3/uL; Eosinophils% 3.6 % (0-5); Hematocrit 26.3 % (40-54); Hemoglobin 8.4 g/dL (13.0-16.5); Lymphocyte # 0.85 X10^3/ul (4.0); Lymphocyte % 14.5 % (19-41); Mean Corp Hgb Conc 31.9 g/dL (32-36); Mean Corpuscular Volume 93.9 fL (80-94); Mean Platelet Vol. 9.5 fl (6.2-12.0); Monocyte# 0.83 X10^3/uL; Monocyte% 14.1 % (0-10); NRBC Flagged by Analyzer 0 % (0-5); Neutrophil # 3.94 X10^3/uL (2.7-7.7); Neutrophil % 66.9 % (47-70); Platelet Count 167 K/mm3 (150-450); RBC Distribution Width CV 13.5 % (11.6-14.6); RBC Distribution Width SD 46.3 fl (35.1-43.9); White Blood Count 5.9 K/mm3 (4.4-11.0)
[2019-12-02 07:04] LABS: AST(SGOT) 20 U/L (15-37); Alanine Aminotransfer ALT/SGPT 15 U/L (16-61); Albumin, Serum 2.5 g/dL (3.2-5.0); Alkaline Phosphatase 69 U/L (45-117); Anion Gap 5 (5-15); BUN 10 mg/dL (7-18); BUN/Creat Ratio 7.6 RATIO (10-20); Calcium,Total 7.3 mg/dL (8.5-10.1); Chloride 117 mmol/L (98-107); Creatinine, Serum 1.31 mg/dL (0.70-1.30); EST Glomerular Filtration Rate 57 mL/min (>60); Est Glom Filt Rate - Afr Amer 69 mL/min (>60); Estimated Creatinine Clearance 46.25 ml/min; Globulin 2.5 g/dL (2.2-4.2); Glucose 99 mg/dL (74-106); Potassium 3.8 mmol/L (3.5-5.1); Sodium Level 147 mmol/L (136-145)
[2019-12-02 07:10] VITALS: O2SAT 97
[2019-12-02 07:26] VITALS: PULSE 74
[2019-12-02 08:24] VITALS: BP 141/80; PULSE 86; RESP 18; TEMP 37; O2SAT 99
[2019-12-02] MEDS: Multivitamins,Ther W-Minerals Tablet 1 TABLET PO (08:26)
--- NOTE | 2019-12-02 10:01 | DCINST_ITS ---
- Discharge Diagnoses Current Active Problems: Current Active and Chronic Problems (Last Reviewed 06/22/19 @ 14:25 by Mandie Acosta) GI bleed (Acute) You will use the following diet at home:: Cardiac Discharge Activity: Return to Normal Activity Call your doctor if you observe: Shortness of breath, Dizziness, Fainting spells, Chest pain Allergies/Adverse Reactions: Allergies lisinopril Adverse Reaction (Intermediate, Verified 11/28/19 12:02) Unknown losartan Adverse Reaction (Intermediate, Verified 11/28/19 12:02) Diarrhea Medications to take at Discharge nitroglycerin 0.4 mg sublingual tablet 0.4 mg SUBLINGUAL Q5M PRN #25 tab 05/31/17 Atorvastatin Calcium [Lipitor] 80 mg PO QHS 11/28/19 Multivit-Min/FA/Lycopen/Lutein [Centrum Silver Men Tablet] 1 tab PO DAILY 11/28/19 Tadalafil 10 mg PO DAILY PRN PRN 11/28/19 Valsartan 40 mg PO QHS 11/28/19 Amlodipine [Norvasc] 2.5 mg PO DAILY #30 tab 12/02/19 The following prescriptions were given: Amlodipine [Norvasc] 2.5 mg PO DAILY #30 tab Transmission Status: Pending to [facility]/pharmacy #[id number] Primary Care Physician: India Khan MD [Primary Care Provider] - Please follow up with your Primary Care Physician in: 1 Week Test Results: Test results from this visit will be discussed in further detail at your follow- up appointment, if applicable. Please Follow Up With: Crow Fierro MD When: 1 Week Please Follow Up With: Rudi Camacho MD When: 1 Week Proposed Discharge Date: 12/02/19
--- NOTE | 2019-12-02 10:04 | PN.SURG_ITS ---
Patient Problems: Active and Suspected Problems (Last Reviewed 06/22/19 @ 14:25 by Mandie Acosta) GI bleed (Acute) Subjective: Complaints of rectal bleeding since his hemorrhoidectomy. Objective: Abdomen is soft - Physical Exam Vitals/I&O's: Vital Signs Temp Pulse Resp BP Pulse Ox 98.6 F 86 18 141/80 H 99 12/02/19 08:24 12/02/19 08:24 12/02/19 08:24 12/02/19 08:24 12/02/19 08:24 Oxygen Delivery Method Room Air Weight: 158 lb 11.725 oz Body Mass Index (BMI) 24.8 Intake and Output for Last 24 Hours 11/30/19 12/01/19 12/02/19 23:59 23:59 23:59 Intake Total 1503.33 / 1503.33 2193.33 / 2613.33 2247.67 / 2247.67 Output Total 950 / 950 Balance 1503.33 / 1503.33 2193.33 / 2413.33 1297.67 / 1297.67 Laboratory Results 11/28/19 14:40: Crossmatch See Detail 12/02/19 00:30: Phosphorus 2.2 L, Magnesium 1.6 12/02/19 05:28: WBC 5.9, RBC 2.80 L, Hgb 8.4 L, Hct 26.3 L, MCV 93.9, MCH 30.0, MCHC 31.9 L, RDW Std Deviation 46.3 H, RDW Coeff of Rafael 13.5, Plt Count 167, MPV 9.5, Immature Gran % (Auto) 0.700, Neut % (Auto) 66.9, Lymph % (Auto) 14.5 L, [place] % (Auto) 14.1 H, Eos % (Auto) 3.6, Baso % (Auto) 0.2, Absolute Neuts (auto) 3.9, Absolute Lymphs (auto) 0.85, Nucleated RBC % 0 12/02/19 05:28: Sodium 147 H, Potassium 3.8, Chloride 117 H, Carbon Dioxide 25.0, Anion Gap 5, BUN 10, Creatinine 1.31 H, Estim Creat Clear Calc 46.25, Est GFR (MDRD) Af Amer 69, Est GFR (MDRD) Non-Af 57 L, BUN/Creatinine Ratio 7.6 L, Glucose 99, Calcium 7.3 L, Total Bilirubin 0.40, AST 20, ALT 15 L, Alkaline Phosphatase 69, Total Protein 5.0 L, Albumin 2.5 L, Globulin 2.5, Albumin/Gl obulin Ratio 1.0 Current Medications Acetaminophen (Tylenol) 650 mg PO Q6H PRN PRN PRN Reason: Pain Score 1-10/10 Last Admin: 12/01/19 20:08 Dose: 650 mg Documented by: Albuterol Sulfate (Ventolin Aerosols) 2.5 mg INHALATION Q2H PRN PRN PRN Reason: Dyspnea, wheezing Amlodipine Besylate (Norvasc) 2.5 mg PO DAILY [facility] Atorvastatin Calcium (Lipitor) 80 mg PO QHS [facility] Last Admin: 12/01/19 21:35 Dose: 80 mg Documented by: Hydralazine HCl (Apresoline) 50 mg PO TID PRN PRN PRN Reason: BLOOD PRESSURE Pantoprazole Sodium 40 mg/ (Sodium Chloride) 110 mls @ 330 mls/hr IV Q12 [facility] Last Infusion: 12/02/19 08:46 Dose: Infused Documented by: Sodium Chloride () 1,000 mls @ 100 mls/hr IV .Q10H [facility] Last Infusion: 12/02/19 08:46 Dose: 100 mls/hr Documented by: Multivitamins/Minerals (Multivitamin With Minerals (Bkc)) 1 tablet PO DAILY@0800 [facility] Last Admin: 12/02/19 08:26 Dose: 1 tablet Documented by: Nitroglycerin (Nitrostat) 0.4 mg SUBLINGUAL Q5M PRN PRN Reason: .CHEST PAIN Ondansetron HCl (Zofran) 4 mg IV Q8H PRN PRN PRN Reason: NAUSEA/VOMITING Sodium Chloride () 10 - 40 ml IV UD PRN PRN Reason: SALINE FLUSH Last Admin: 11/30/19 21:09 Dose: 10 ml Documented by: Valsartan (Diovan) 40 mg PO QHS [facility] Last Admin: 12/01/19 21:34 Dose: 40 mg Documented by: Medical Necessity - Tobacco Use Smoking Status: Never smoker Tobacco Use: Non-smoker Assessment/Plan All Active Problems (Last Reviewed 06/22/19 @ 14:25 by Mandie Acosta) GI bleed (Acute) Okay to be discharged from surgery standpoint follow-up with Dr. Minerva christian in 1 week
--- NOTE | 2019-12-02 10:10 | PCM.DC.SUM ---
Discharge Date and Diagnosis Date of Admission: 11/28/19 Date of Discharge: 12/02/19 - Primary Discharge Diagnosis Acute Problems: Active Problems (Last Reviewed 06/22/19 @ 14:25 by Mandie Acosta) 1. Acute GI bleed with acute blood loss anemia secondary to anal hemorrhage 2. Second-degree AV block 3. Ischemic cardiomyopathy 4. Chronic kidney disease stage III 5. Hypertension 6. Hyperlipidemia 7. IV drug use - Secondary Discharge Diagnosis Chronic Problems: Chronic Problems (Last Reviewed 06/22/19 @ 14:25 by Mandie Acosta) Pure hypercholesterolemia (Chronic) Ascending aorta dilatation (Chronic) Presence of stent in coronary artery (Chronic ~03/29/07) PTCA of LAD intracoronary stent August 1996;PTCA/BMS of mid CX 03/29/07 Essential hypertension (Chronic) Angina pectoris (Chronic) Atherosclerotic heart disease of [place] coronary artery without angina pectoris (Chronic) Ischemic cardiomyopathy (Chronic) Nonspecific abnormal results of function study of liver (Chronic) Tachycardia (Chronic) Hospital Course and Treatment Dr. Fierro- general surgery Operations: - - Hemorrhoidectomy Procedures: 2-D Echocardiogram Summary of Care Provided: The patient is a 74 year old M admitted 11/28/2019 due to rectal bleeding. 1. Acute GI bleed with acute blood loss anemia-colonoscopy demonstrated nonbleeding hemorrhoids. EGD unremarkable. Given recurrent bleeding per rectum and drop in hemoglobin, patient underwent hemorrhoidectomy 12/01/2019. Status post 3 units PRBC. Home aspirin 325 mg discontinued at discharge. Pending follow-up with general surgery, may consider restarting aspirin at a lower dose, 81 mg daily if hemoglobin remains stable and no further bleeding. Follow-up with Dr. Fierro in 1 week. 2. Second-degree AV block-cardiology consulted during admission. Discontinue home carvedilol regimen. Echocardiogram demonstrates an EF of 45%, mild aortic valve insufficiency. Currently stable. Continue to hold rate limiting regimen. Follow-up with cardiology in 1 week. 3. Ischemic cardiomyopathy-echocardiogram May 2018 demonstrated an EF of 40%. Repeat echo as noted above. 4. Chronic kidney disease stage III-at baseline. 5. Hypertension-stable, continue home valsartan regimen. Initiated on amlodipine given discontinuation of carvedilol. 6. Hyperlipidemia-continue statin. 7. IV drug use-reports recent cessation. Denies withdrawal symptoms. Tox screen negative. Hepatitis panel negative. General: Alert, Oriented x3, Cooperative HEENT: Atraumatic, PERRLA, EOMI, Normocephalic Neck: Supple, No JVD, Negative Carotid Bruits Lungs: Clear to auscultation, Normal air movement Cardiovascular: Regular rate, No murmurs Abdomen: Bowel Sounds Present, Soft, Non Tender Extremities: No clubbing, No cyanosis, No edema, Capillary Refill Less than 3 Seconds Skin: No rashes, No breakdown Musculoskeletal: No Tenderness to Palpation of Joints or Extremities Neurological: Cranial nerves II-XII grossly intact, Neuro grossly intact Psych/Mental Status: Normal Affect, Appropriate Patient seen and examined prior to discharge. Physical assessment as noted above. Patient is stable for discharge with follow up recommendations as noted above. This patient was seen by SHANKAR Velez under the supervision of Dr. Abreu. - Physical Exam Vitals/I&O's: Vital Signs Temp Pulse Resp BP Pulse Ox 98.6 F 86 18 141/80 H 99 12/02/19 08:24 12/02/19 08:24 12/02/19 08:24 12/02/19 08:24 12/02/19 08:24 Oxygen Delivery Method Room Air Weight: 158 lb 11.725 oz Body Mass Index (BMI) 24.8 Intake and Output for Last 24 Hours 11/30/19 12/01/19 12/02/19 23:59 23:59 23:59 Intake Total 1503.33 / 1503.33 2193.33 / 2613.33 2247.67 / 2247.67 Output Total 950 / 950 Balance 1503.33 / 1503.33 2193.33 / 2413.33 1297.67 / 1297.67 Laboratory Results 11/28/19 14:40: Crossmatch See Detail 12/02/19 00:30: Phosphorus 2.2 L, Magnesium 1.6 12/02/19 05:28: WBC 5.9, RBC 2.80 L, Hgb 8.4 L, Hct 26.3 L, MCV 93.9, MCH 30.0, MCHC 31.9 L, RDW Std Deviation 46.3 H, RDW Coeff of Rafael 13.5, Plt Count 167, MPV 9.5, Immature Gran % (Auto) 0.700, Neut % (Auto) 66.9, Lymph % (Auto) 14.5 L, [place] % (Auto) 14.1 H, Eos % (Auto) 3.6, Baso % (Auto) 0.2, Absolute Neuts (auto) 3.9, Absolute Lymphs (auto) 0.85, Nucleated RBC % 0 12/02/19 05:28: Sodium 147 H, Potassium 3.8, Chloride 117 H, Carbon Dioxide 25.0, Anion Gap 5, BUN 10, Creatinine 1.31 H, Estim Creat Clear Calc 46.25, Est GFR (MDRD) Af Amer 69, Est GFR (MDRD) Non-Af 57 L, BUN/Creatinine Ratio 7.6 L, Glucose 99, Calcium 7.3 L, Total Bilirubin 0.40, AST 20, ALT 15 L, Alkaline Phosphatase 69, Total Protein 5.0 L, Albumin 2.5 L, Globulin 2.5, Albumin/Globulin Ratio 1.0 Current Medications Acetaminophen (Tylenol) 650 mg PO Q6H PRN PRN PRN Reason: Pain Score 1-10/10 Last Admin: 12/01/19 20:08 Dose: 650 mg Documented by: Albuterol Sulfate (Ventolin Aerosols) 2.5 mg INHALATION Q2H PRN PRN PRN Reason: Dyspnea, wheezing Amlodipine Besylate (Norvasc) 2.5 mg PO DAILY [facility] Atorvastatin Calcium (Lipitor) 80 mg PO QHS [facility] Last Admin: 12/01/19 21:35 Dose: 80 mg Documented by: Hydralazine HCl (Apresoline) 50 mg PO TID PRN PRN PRN Reason: BLOOD PRESSURE Pantoprazole Sodium 40 mg/ (Sodium Chloride) 110 mls @ 330 mls/hr IV Q12 [facility] Last Infusion: 12/02/19 08:46 Dose: Infused Documented by: Sodium Chloride () 1,000 mls @ 100 mls/hr IV .Q10H [facility] Last Infusion: 12/02/19 08:46 Dose: 100 mls/hr Documented by: Multivitamins/Minerals (Multivitamin With Minerals (Bkc)) 1 tablet PO DAILY@0800 [facility] Last Admin: 12/02/19 08:26 Dose: 1 tablet Documented by: Nitroglycerin (Nitrostat) 0.4 mg SUBLINGUAL Q5M PRN PRN Reason: .CHEST PAIN Ondansetron HCl (Zofran) 4 mg IV Q8H PRN PRN PRN Reason: NAUSEA/VOMITING Sodium Chloride () 10 - 40 ml IV UD PRN PRN Reason: SALINE FLUSH Last Admin: 11/30/19 21:09 Dose: 10 ml Documented by: Valsartan (Diovan) 40 mg PO QHS [facility] Last Admin: 12/01/19 21:34 Dose: 40 mg Documented by: Discharge Diet: Low fat/ Low Cholesterol Discharge Activity: Return to Normal Activity Call your doctor if you observe: Shortness of breath, Dizziness, Fainting spells, Chest pain Home Medications: Medications to take at Discharge nitroglycerin 0.4 mg sublingual tablet 0.4 mg SUBLINGUAL Q5M PRN #25 tab 05/31/17 Atorvastatin Calcium [Lipitor] 80 mg PO QHS 11/28/19 Multivit-Min/FA/Lycopen/Lutein [Centrum Silver Men Tablet] 1 tab PO DAILY 11/28/19 Tadalafil 10 mg PO DAILY PRN PRN 11/28/19 Valsartan 40 mg PO QHS 11/28/19 Amlodipine [Norvasc] 2.5 mg PO DAILY #30 tab 12/02/19 Following Prescriptions Were Given to Patient: Amlodipine [Norvasc] 2.5 mg PO DAILY #30 tab Transmission Status: Pending to [facility]/pharmacy #[id number] Primary Care Physician: India Khan MD [Primary Care Provider] - Please follow up with your Primary Care Physician in: 1 Week Please Follow Up With: Crow Fierro MD When: 1 Week Please Follow Up With: Rudi Camacho MD When: 1 Week Disposition: Home Minutes spent on discharge:: 35 Patient Condition:: Stable Medical Necessity - Tobacco Use Smoking Status: Never smoker Tobacco Use: Non-smoker Meaningful Use Info Meaningful Use Diagnoses (Choose all that apply): None applicable
[2019-12-02] MEDS: amLODIPine 2.5 MG Tablet PO (10:36)
[2019-12-02 10:44] VITALS: BMI 25.1
== END 2019-12-02 11:24 | disposition home or self-care (01) | DRG 348 ==
LOC: ED 13:48 → MS3 15:31
PROVIDERS: Family Medicine; Physician Assistant; Surgery; Admitting Provider Student in an Organized Health Care Education/Training Program; Emergency Provider Emergency Medicine; PCP Internal Medicine; Visit Provider Family Medicine
PROC: 0DJD8ZZ Inspection of Lower Intestinal Tract, Via Natural or Artificial Opening Endoscopic (ICD-10-PCS; CPT 45378; principal; 2019-11-30 09:55)
PROC: 06BY0ZC Excision of Hemorrhoidal Plexus, Open Approach (ICD-10-PCS; principal; 2019-12-01 12:35)
DX: K64.8 Other hemorrhoids (principal); D62 Acute posthemorrhagic anemia; I42.0 Dilated cardiomyopathy; K64.4 Residual hemorrhoidal skin tags; I25.119 Atherosclerotic heart disease of native coronary artery with unspecified angina pectoris; E78.00 Pure hypercholesterolemia, unspecified; I44.1 Atrioventricular block, second degree; I25.5 Ischemic cardiomyopathy; I12.9 Hypertensive chronic kidney disease with stage 1 through stage 4 chronic kidney disease, or unspecified chronic kidney disease; N18.3 Chronic kidney disease, stage 3 (moderate); E78.5 Hyperlipidemia, unspecified; Z95.5 Presence of coronary angioplasty implant and graft; Z79.82 Long term (current) use of aspirin; Z79.899 Other long term (current) drug therapy; F15.90 Other stimulant use, unspecified, uncomplicated
CPT/HCPCS: 36415; 80048; 80053; 80307; 83735; 84100; 85014; 85018; 85025; 86703; 86704; 86705; 86706; 86708; 86709; 86803; 86850; 86900; 86901; 86920; 87340; 88304; 93005; 93306; 97110; 97116; 97162; 97530; 99285; J7030; J7040; J7050; J7120; P9016; A4216; J2405

== ENCOUNTER 2020-05-16 18:26 | Emergency (ER) | payer MEDICARE, SELFPAY ==
[2020-01-05 11:10] VITALS: BMI 24.9
[2020-05-16 18:26] VITALS: BP 113/60; PULSE 124; RESP 18; TEMP 36.7; O2SAT 98; BMI 25.8
[2020-05-16 18:29] VITALS: BP 113/60; PULSE 124; RESP 18; TEMP 36.7; O2SAT 98
--- NOTE | 2020-05-16 19:02 | ED.VISSUMM ---
- ER Visit Summary Date of Service: 05/16/20 Chief Complaint: Abscess History of Present Illness: The patient is a 75 M with a left buttock abscess. No other complaints. Physical Examination: 4 cm area of fluctuance and induration to his left buttock. No involvement of his anus. Minimal surrounding erythema, otherwise unremarkable exam Test Results: None indicated Emergency Department Course and Treatment: Patient gave verbal consent for I&D. Cleaned with Betadine. Infiltrated with lidocaine with epinephrine. I&D performed. Copious pus drained. Wound left open. Soaks in warm soapy water. Bactrim and Keflex coverage. Precautions and return indications given. Follow-up with primary care. Treatment Plan: As above Disposition: Discharge Impression: Left buttock abscess This note was generated with [employer] dictation software. It may contain incorrect words, spelling, and punctuation that were not noted in review of the chart prior to signing ED Disposition - Plan for ED Patient: Referrals: India Khan MD [Primary Care Provider] -
--- NOTE | 2020-05-16 19:04 | ED.DEP ---
ED Disposition - Plan for ED Patient: Instructions: ED Abscess Incision And Drainage Prescriptions: Smz/Tmp Ds [Bactrim Ds] 1 tab PO BID #14 tab Prescription Printed Cephalexin [Keflex] 500 mg PO Q6 #28 cap Prescription Printed Referrals: India Khan MD [Primary Care Provider] -
[2020-05-16] MEDS: Lidocaine 1% /Epi 1:100 (20ml) 20 ML Vial 10 ML INFILT (19:27)
[2020-05-16] MEDS: Smz/Tmp Ds Tablet 1 TABLET PO (19:27)
[2020-05-16] MEDS: Cephalexin 250 MG Capsule 500 MG PO (19:27)
[2020-05-16 19:30] VITALS: BP 135/84; PULSE 118; RESP 16; O2SAT 97
== END 2020-05-16 19:31 | disposition home or self-care (01) ==
PROVIDERS: Emergency Provider Emergency Medicine; PCP Internal Medicine
DX: L02.31 Cutaneous abscess of buttock (principal); I25.10 Atherosclerotic heart disease of native coronary artery without angina pectoris; I10 Essential (primary) hypertension; E78.00 Pure hypercholesterolemia, unspecified; Z87.19 Personal history of other diseases of the digestive system; Z79.82 Long term (current) use of aspirin; Z79.899 Other long term (current) drug therapy
CPT/HCPCS: 10060; 99283

== ENCOUNTER 2020-09-27 01:27 | Inpatient (IN) | payer MEDICARE, SELFPAY ==
[2020-09-27] VITALS (70 sets, daily range): BP systolic 50–160; BP diastolic 13–99; PULSE 55–111; RESP 8–29; TEMP 34.3–37.4; O2SAT 90–100; BMI 27.6
--- NOTE | 2020-09-27 01:30 | RAD_ITS ---
STUDY: X-RAY CHEST REASON FOR EXAM: Male, 75 years old. altered mental status TECHNIQUE: Single AP portable view of the chest. COMPARISON: 10/06/2019 FINDINGS: ET tube is in place terminating 5.3 cm from lili. Patchy airspace disease in the left lung. Right lung is clear. There is no demonstrated pleural abnormality. There is mild cardiac enlargement. Normal mediastinum and rosario. Normal visualized pulmonary arteries. Normal visualized aortic arch and descending thoracic aorta. Normal visualized thoracic spine. Normal visualized ribs, clavicles, and shoulders. There is no demonstrated abnormality of the visualized soft tissue structures of the upper abdomen. RAD/Chest 1 View (Portable) IMPRESSION: ET tube as above. Right lung is clear. Patchy airspace disease in the left lung Electronically Signed: Florian Santana DO at 2:35 EDT Tel , Service support ,
--- NOTE | 2020-09-27 01:30 | EKG12_ITS ---
Test Reason : REPEAT EKG Blood Pressure : / mmHG Vent. Rate : 090 BPM Atrial Rate : 090 BPM P-R Int : 234 ms QRS Dur : 144 ms QT Int : 414 ms P-R-T Axes : 065 260 -11 degrees QTc Int : 506 ms Sinus rhythm with 1st degree A-V block with frequent Premature ventricular complexes Right bundle branch block Inferior infarct , age undetermined , cannot be excluded Abnormal ECG Confirmed by [place] ARREGUIN, DEE DEE ([id number]), editor publications PABLO SOL ([id number]) on 10/01/2020 9:57:19 AM Referred By: CHADWICK Confirmed By:DEE DEE BE MD
[2020-09-27 01:47] LABS: Hematocrit 39.8 % (40-54); Mean Corp Hgb Conc 30.2 g/dL (32-36); Mean Corpuscular Hgb 30.2 pg (27.0-32.0); Mean Platelet Vol. 9.7 fl (6.2-12.0); POSITIVE COUNT YES; POSITIVE MORPHOLOGY YES; Platelet Count 176 K/mm3 (150-450); RBC Distribution Width CV 12.7 % (11.6-14.6); RBC Distribution Width SD 47.3 fl (35.1-43.9); Red Blood Count 3.98 M/mm3 (4.6-6.2); White Blood Count 10.8 K/mm3 (4.4-11.0)
[2020-09-27] MEDS: 0.9% Normal Saline 1,000 ML 999 ML IV ×2 (01:50→02:28)
[2020-09-27 01:53] LABS: Differential Indicated MANUAL DIFF
[2020-09-27 02:03] LABS: International Normalized Ratio 1.2; Prothrombin Time (Protime)PT. 14.8 SECONDS (11.7-14.9)
[2020-09-27 02:04] LABS: Partial Thromboplast Time 41.2 Seconds (24.1-36.2)
[2020-09-27 02:08] LABS: ALB/GLOB Ratio 1.2 RATIO (0.9-2.4); AST(SGOT) 105 U/L (15-37); Alanine Aminotransfer ALT/SGPT 102 U/L (16-61); Albumin, Serum 3.3 g/dL (3.2-5.0); Alkaline Phosphatase 80 U/L (45-117); Anion Gap 14 (5-15); BUN 26 mg/dL (7-18); BUN/Creat Ratio 14.4 RATIO (10-20); Calcium,Total 8.2 mg/dL (8.5-10.1); Chloride 107 mmol/L (98-107); Creatinine, Serum 1.81 mg/dL (0.70-1.30); EST Glomerular Filtration Rate 39 mL/min (>60); Est Glom Filt Rate - Afr Amer 47 mL/min (>60); Estimated Creatinine Clearance 35.26 ml/min; Globulin 2.8 g/dL (2.2-4.2); Glucose 308 mg/dL (74-106); Potassium 3.2 mmol/L (3.5-5.1); Protein, Total 6.1 g/dL (6.4-8.2); Sodium Level 144 mmol/L (136-145); Troponin-I HS 68.2 pg/mL (3.0-78.5)
[2020-09-27 02:10] LABS: Lactic Acid 9.6 mmol/L (0.4-1.9)
--- NOTE | 2020-09-27 02:20 | EX.ED.CRITCA ---
HPI History of Present Illness Chief Complaint: CPR Narrative Narrative: 75-year-old male presenting in cardiopulmonary arrest via EMS. Patient was found unresponsive. Per EMS somebody saw him on the ground and called 911. There is no bystander CPR started. CPR was started on scene by EMS. Initial rhythm was asystole. By the time they had arrived patient did have ROSC. [facility] Medical History Angina pectoris Atherosclerotic heart disease of [place] coronary artery without angina pectoris Essential hypertension Ischemic cardiomyopathy Presence of stent in coronary artery (~03/29/07) Pure hypercholesterolemia Second degree AV block, Mobitz type I Tachycardia Home Medications nitroglycerin 0.4 mg sublingual tablet 0.4 mg SUBLINGUAL Q5M PRN #25 tab 05/31/17 [Rx Last Taken Unknown] nabxseiv-lcq-IY-lycopen-lutein 1 tab PO DAILY 11/28/19 [History Last Taken 11/26/19] tadalafil 10 mg PO DAILY PRN PRN 11/28/19 [History Last Taken 11/27/19] aspirin 325 mg tablet 325 mg PO DAILY 01/05/20 [History Last Taken Unknown] amlodipine 2.5 mg tablet 2.5 mg PO DAILY #30 tab 01/09/20 [Rx Last Taken Unknown] atorvastatin 80 mg tablet 80 mg PO QHS #90 tab 01/13/20 [Rx Last Taken Unknown] cephalexin 500 mg PO Q6 #28 cap 05/16/20 [Rx Last Taken Unknown] sulfamethoxazole-trimethoprim 1 tab PO BID #14 tab 05/16/20 [Rx Last Taken Unknown] Allergy/AdvReac Type Severity Reaction Status Date / Time lisinopril AdvReac Intermediate Unknown Verified 09/27/20 01:51 losartan AdvReac Intermediate Diarrhea Verified 09/27/20 01:51 Family History Father CAD (coronary artery disease) Mother Alzheimer's disease Sister Breast cancer Hyperlipidemia Hypertension Surgical History Presence of coronary angioplasty implant and graft (~03/29/07) Social History Smoking Status: Never smoker alcohol intake: never substance use type: does not use caffeine: No what type of physical activity do you participate in: other details: tredmill frequency: 5-6 times per week duration: 30-45 minutes/day seatbelt use: always do you feel safe at home: Yes ROS ROS ED Review of Systems ROS Unobtainable: due to encephalopathy, due to endotracheal tube, due to mental condition, due to mental status and other EXAM Physical Exam Const Vital Signs: 09/27/20 01:28 09/27/20 01:30 09/27/20 01:32 Temperature 96.3 F L 96.3 F L Temperature Source Temporal Temporal Pulse Rate 111 H 111 H Respiratory Rate 15 15 Respiratory Pattern Blood Pressure 62/38 L 50/39 L Blood Pressure Mean 46 42 Pulse Ox 93 93 96 Oxygen Delivery Method Ambu-Bag Ambu-Bag Ambu-Bag Fraction of Inspired Oxygen (FIO2) 09/27/20 01:43 09/27/20 01:47 09/27/20 01:51 Temperature 96.6 F L Temperature Source Core Pulse Rate Respiratory Rate Respiratory Pattern Blood Pressure 58/13 L Blood Pressure Mean 28 Pulse Ox Oxygen Delivery Method Ambu-Bag Fraction of Inspired Oxygen (FIO2) 09/27/20 01:57 09/27/20 02:01 09/27/20 02:04 Temperature Temperature Source Pulse Rate 55 L 89 Respiratory Rate 14 29 H Respiratory Pattern Normal Blood Pressure 112/57 L 81/38 L Blood Pressure Mean 75 52 Pulse Ox 97 100 Oxygen Delivery Method Ambu-Bag Fraction of Inspired Oxygen (FIO2) 30 09/27/20 02:05 09/27/20 02:06 09/27/20 02:10 Temperature Temperature Source Pulse Rate 86 84 Respiratory Rate 18 16 Respiratory Pattern Blood Pressure 81/38 L 160/95 H Blood Pressure Mean 52 116 Pulse Ox 97 93 Oxygen Delivery Method Ambu-Bag Ambu-Bag Fraction of Inspired Oxygen (FIO2) 09/27/20 02:11 09/27/20 02:16 09/27/20 02:30 Temperature 96.3 F L Temperature Source Core Pulse Rate 96 90 Respiratory Rate 19 H 14 Respiratory Pattern Blood Pressure 130/82 H 118/86 H 103/78 Blood Pressure Mean 98 96 86 Pulse Ox 99 99 Oxygen Delivery Method Ambu-Bag Mechanical Ventilator Fraction of Inspired Oxygen (FIO2) 09/27/20 02:36 09/27/20 02:46 09/27/20 03:00 Temperature 94.1 F L Temperature Source Core Pulse Rate 88 88 89 Respiratory Rate 18 13 16 Respiratory Pattern Blood Pressure 111/82 H 109/70 117/70 Blood Pressure Mean 91 83 85 Pulse Ox 99 97 96 Oxygen Delivery Method Mechanical Ventilator Mechanical Ventilator Mechanical Ventilator Fraction of Inspired Oxygen (FIO2) 09/27/20 03:59 09/27/20 04:02 Temperature 93.8 F L Temperature Source Core Pulse Rate 99 99 Respiratory Rate 8 L 12 Respiratory Pattern Blood Pressure 116/99 H 111/73 Blood Pressure Mean 104 85 Pulse Ox 92 Oxygen Delivery Method Mechanical Ventilator Fraction of Inspired Oxygen (FIO2) 100 General Appearance ED: other Unresponsive HEENT HEENT Narrative: IGEL in place. Bruising to the left mandible with local swelling approximately 4 cm. Eyes Eyes Narrative: Pupils fixed and mid dilated. Chest Wall inspection of chest normal and palpation of chest normal Resp Resp Narrative: No spontaneous respirations. Cardio regular rhythm Rate: bradycardia Peripheral Pulses: pulses 2+ throughout Neuro Neuro Narrative: Unresponsive Sensory Exam: other Skin Skin Narrative: Bilateral hands and nailbeds cyanotic. MDM MDM MDM Narrative Medical decision making narrative: Patient presenting by EMS after ROSC. Patient did have loss of pulse after initial evaluation. ACLS protocol was followed. Patient did have ROSC after giving epinephrine and 1 round of CPR and then had loss of vitals again and again we did obtain ROSC. Patient was hypotensive and received push dose epi until he can get his blood pressure up high enough to intubate him. This was done on first pass without complication with exception of some bleeding which appears to be coming from the posterior oropharynx or tongue which was noticed after intubation. There was no direct trauma visualized while intubating with the glide scope. Patient began to desaturate and after checking the ET tube it appeared not to have enough pressure in the bulb and appeared to be deflating. For this reason the ET tube was changed out under glide scope and was again placed. 7/2 ET tube at 24 cm at the lip with good color change at bedside colorimetric capnography and bilateral breath sounds. Chest x-ray on my interpretation shows ET tube is in good position. There does not appear to be any right lung airspace disease. The left lung does have patchy areas of infiltrate in the upper and lower lobe. Radiology does agree. It is possible this could be from CPR as well as aspiration. Which will since his blood pressure is low Levophed was started peripherally while central line was placed in the right femoral vein. This was chosen as a location given that week have had to do CPR twice now he wanted to obtain central venous access without inhibiting CPR should it be needed again. After central line was placed patient's Levophed was switched to the central line. Patient's blood pressure has improved. While the blood pressure is elevated patient has unknown downtime without bystander CPR. There is no visible signs of trauma. Pupils are fixed and dilated. Patient's lab work shows a white blood cell count of 10.8, hemoglobin 12.0, hematocrit 39.8, platelets 176. Creatinine is acutely elevated at 1.81 and was previously 1.31. Patient was given 2 L of IV fluids prior to starting the Levophed. Lactic acid is 9.6. Patient's initial EKG on arrival shows a wide QRS with a ventricular rate of 58 bpm on my interpretation. I do visualize P waves in V1, V2 there does appear to be depressions in the ST segment in V2, V3, V4, V5. After patient was stabilized and his heart rate became more regular and he was normotensive I repeated the EKG which on my interpretation is sinus rhythm with first-degree AV block with PVCs. There is still a right bundle branch block. There are changes from the first EKG in V2, V3, V4, V5 in which the T waves in which the ST depressions appear improved from previous. Troponin 68.2. On reevaluation of the patient it is noted there is some bruising to the left jawline which has become apparent since he has been here. His pupils are now not fixed and mid dilated and there are pinpoint. Per nursing here appears to have a gag reflex when trying to place an OG tube however this was placed and appears need advanced on my interpretation of the KUB. Radiology does recommend advancing 9 cm. This was adjusted although we have been getting good output through the OG tube. It was noted that the patient started to have a small amount of blood coming from his ET tube and this was suctioned and appears to have slowed. This is likely due to CPR. Patient was continually reevaluated given his hypotension, acute respiratory failure, hemoptysis. He appears to be stabilized at this time. ABG shows a pH of 7.25, bicarb of 17.3, O2 saturation 91% will obtain CT imaging of the brain, cervical spine, maxillofacial regions given the bruising on the jaw and unknown mechanism for his cardiopulmonary arrest. CT brain, cervical spine, maxillofacial negative for acute findings. Patient was discussed with Korey TIMMONS who states that they were on scene and 5 minutes and states that it was about 8 to 10 minutes until EMS started CPR on their arrival. 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 The officer also states that they received a call stating that he was overdosing and when they arrived to his home he was sitting in a chair with 2 needles in the local surrounding area. The officer also states that he is known to do drugs but believed to to use methamphetamine. Patient's presentation does not appear to be in opioid overdose given that his pupils were not pinpoint. His urine tox is negative. The officer also states that it appears that somebody ran out quickly through the back door as the curtain was closed in the door. Given patient's findings on chest x-ray I will start antibiotics in the ED. Which will cover for aspiration as well. I would think less likely aspiration in the left lung field however this is not impossible. Patient's rapid Covid was negative. Lab work consistent with COVID-19 Impression: 1. Cardiopulmonary arrest 2. Septic shock 3. Acute kidney injury 4. Hypoxic respiratory failure 5. Hypokalemia 6. Left upper and lower lobe infiltrate 7. Hypotension 8. Hemoptysis Lab Data Labs: Laboratory Results - last 24 hr 09/27/20 09/27/20 09/27/20 01:30 01:30 01:30 WBC 10.8 RBC 3.98 L Hgb 12.0 L Hct 39.8 L MCV 100.0 H MCH 30.2 MCHC 30.2 L RDW Std Deviation 47.3 H RDW Coeff of Rafael 12.7 Plt Count 176 MPV 9.7 Neut % (Auto) Not Reportable Absolute Neuts (auto) 4.4 Absolute Lymphs (auto) 5.61 H Total Counted 100 Neutrophils % (Manual) 39 L Band Neutrophils % 2 Lymphocytes % (Manual) 52 H Monocytes % (Manual) 5 Basophils % (Manual) 1 Myelocytes % 1 H Diff Path Review May foll Atypical Lymphocytes 1+ Smudge Cells RARE Platelet Estimate ADEQUATE Anisocytosis 1+ Macrocytosis 1+ PT 14.8 INR 1.2 APTT 41.2 H Sodium 144 Potassium 3.2 L Chloride 107 Carbon Dioxide 23.0 Anion Gap 14 BUN 26 H Creatinine 1.81 H Estim Creat Clear Calc 35.26 Est GFR (MDRD) Af Amer 47 L Est GFR (MDRD) Non-Af 39 L BUN/Creatinine Ratio 14.4 Glucose 308 H Lactic Acid Calcium 8.2 L Magnesium Total Bilirubin 0.20 AST 105 H ALT 102 H Alkaline Phosphatase 80 Troponin I High Sens 68.2 Total Protein 6.1 L Albumin 3.3 Globulin 2.8 Albumin/Globulin Ratio 1.2 Urine Color Urine Clarity Urine pH Ur Specific [place] Urine Protein Urine Glucose (UA) Urine Ketones Urine Occult Blood Urine Nitrite Urine Bilirubin Urine Urobilinogen Ur Leukocyte Esterase Urine RBC Urine WBC Ur Squamous Epith Cells Ur Renal Epithelial Cell Urine Bacteria Urine Mucus Urine Opiates Screen Urine Methadone Screen Ur Barbiturates Screen Ur Phencyclidine Scrn Ur Amphetamines Screen U Methamphetamin-MDMA U Benzodiazepines Scrn Urine Cocaine Screen U Cannabinoids Screen Ur Drug Screen Comment Ethyl Alcohol 09/27/20 09/27/20 09/27/20 01:30 01:30 01:30 WBC RBC Hgb Hct MCV MCH MCHC RDW Std Deviation RDW Coeff of [place] Plt Count MPV Neut % (Auto) Absolute Neuts (auto) Absolute Lymphs (auto) Total Counted Neutrophils % (Manual) Band Neutrophils % Lymphocytes % (Manual) Monocytes % (Manual) Basophils % (Manual) Myelocytes % Diff Path Review Atypical Lymphocytes Smudge Cells Platelet Estimate Anisocytosis Macrocytosis PT INR APTT Sodium Potassium Chloride Carbon Dioxide Anion Gap BUN Creatinine Estim Creat Clear Calc Est GFR (MDRD) Af Amer Est GFR (MDRD) Non-Af BUN/Creatinine Ratio Glucose Lactic Acid 9.6 H* Calcium Magnesium 2.5 Total Bilirubin AST ALT Alkaline Phosphatase Troponin I High Sens Total Protein Albumin Globulin Albumin/Globulin Ratio Urine Color Urine Clarity Urine pH Ur Specific [place] Urine Protein Urine Glucose (UA) Urine Ketones Urine Occult Blood Urine Nitrite Urine Bilirubin Urine Urobilinogen Ur Leukocyte Esterase Urine RBC Urine WBC Ur Squamous Epith Cells Ur Renal Epithelial Cell Urine Bacteria Urine Mucus Urine Opiates Screen Urine Methadone Screen Ur Barbiturates Screen Ur Phencyclidine Scrn Ur Amphetamines Screen U Methamphetamin-MDMA U Benzodiazepines Scrn Urine Cocaine Screen U Cannabinoids Screen Ur Drug Screen Comment Ethyl Alcohol 6.0 09/27/20 09/27/20 02:30 02:30 WBC RBC Hgb Hct MCV MCH MCHC RDW Std Deviation RDW Coeff of Rafael Plt Count MPV Neut % (Auto) Absolute Neuts (auto) Absolute Lymphs (auto) Total Counted Neutrophils % (Manual) Band Neutrophils % Lymphocytes % (Manual) Monocytes % (Manual) Basophils % (Manual) Myelocytes % Diff Path Review Atypical Lymphocytes Smudge Cells Platelet Estimate Anisocytosis Macrocytosis PT INR APTT Sodium Potassium Chloride Carbon Dioxide Anion Gap BUN Creatinine Estim Creat Clear Calc Est GFR (MDRD) Af Amer Est GFR (MDRD) Non-Af BUN/Creatinine Ratio Glucose Lactic Acid Calcium Magnesium Total Bilirubin AST ALT Alkaline Phosphatase Troponin I High Sens Total Protein Albumin Globulin Albumin/Globulin Ratio Urine Color Yellow Urine Clarity Sl. Cloudy Urine pH 7.0 Ur Specific [place] 1.015 Urine Protein 500 H Urine Glucose (UA) 250 H Urine Ketones Negative Urine Occult Blood 250 H Urine Nitrite Negative Urine Bilirubin Negative Urine Urobilinogen Normal Ur Leukocyte Esterase 25 H Urine RBC > 100 SEEN Urine WBC 10-25 SEEN Ur Squamous Epith Cells 0 SEEN Ur Renal Epithelial Cell 0-5 SEEN Urine Bacteria 2+ Urine Mucus 0 SEEN Urine Opiates Screen NEGATIVE Urine Methadone Screen NEGATIVE Ur Barbiturates Screen NEGATIVE Ur Phencyclidine Scrn NEGATIVE Ur Amphetamines Screen NEGATIVE U Methamphetamin-MDMA NEGATIVE U Benzodiazepines Scrn NEGATIVE Urine Cocaine Screen NEGATIVE U Cannabinoids Screen NEGATIVE Ur Drug Screen Comment Ethyl Alcohol ABG Data ABG results: ABG 09/27/20 02:46 Specimen Type ART Sample Site R Radial pH 7.25 L Bicarbonate Actual 17.3 L Total CO2 19 Base Excess -10 L O2 Saturation 91 L O2 % 30 ABG pCO2 39.5 ABG pO2 72 L Rene Test Positive Respiration Rate 12 O2 Delivery Device ET Tube Vent Mode AC Tidal Volume 450 POC PEEP 5 Radiography Diagnostic Testing: Radiology Impression Chest X-Ray 09/27/20 01:30 IMPRESSION: ET tube as above. Right lung is clear. Patchy airspace disease in the left lung Electronically Signed: Florian Santana DO at 2:35 EDT Tel , Service support , Brain CT 09/27/20 02:44 IMPRESSION: Chronic involutional changes of the brain. Electronically Signed: Florian Santana DO at 3:34 EDT Tel , Service support , Cervical Spine CT 09/27/20 02:44 IMPRESSION: Multilevel degenerative changes, as described above. Electronically Signed: Florian Santana DO at 3:48 EDT Tel , Service support , Facial/Sinus 09/27/20 02:44 IMPRESSION: Normal unenhanced CT of the facial bones. Electronically Signed: Florian Santana DO at 3:49 EDT Tel , Service support , KUB X-Ray 09/27/20 02:59 IMPRESSION: As above Electronically Signed: Florian Santana DO at 3:32 EDT Tel , Service support , Procedures Intubations Intubation Method: orotracheal Intubation Verification: Positive color change and Bilateral breath sounds confirmed Intubation Complications: O2 saturation decreased (Patient required exchange of ET tube which was placed to 24 cm at the lip. Positive color change, bilateral breath sounds) Other Procedures Procedure(s): Central venous access: Patient's right inguinal region was cleaned with ChloraPrep. Patient prepped and draped in a sterile fashion. Area was anesthetized locally with 4 cc of lidocaine . Ultrasound guidance was utilized to advance the introducer needle into the right femoral vein. Guidewire was advanced into the right femoral vein and the introducer needle was removed. Dilator was placed over the guidewire and a small colleen was made proximal to the dilator in order to advance the dilator. After the dilator was inserted it was removed and the catheter was placed over this and inserted flush to the skin. Guidewire was then removed. All ports appear to be working. The central line was sutured to the skin. Critical Care Time Critical care time (excluding procedures): 75-104 minutes (Critical care time 104 minutes), Including time spent: and Performing Direct Patient Care at Bedside Discharge Plan Triage Chief Complaint: CPR ED Provider: Junaid Orta Dx/Rx/DC Orders Prescriptions: No Action nitroglycerin [Nitrostat] 0.4 mg tablet, sublingual 0.4 mg SUBLINGUAL Q5M PRN (Reason: chest pain) Qty: 25 RF: 3 aspirin 325 mg tablet 325 mg PO DAILY RF: 0 tadalafil 10 mg tablet 10 mg PO DAILY PRN PRN (Reason: ED) RF: 0 otewyzow-qot-RI-lycopen-lutein 1 EACH tablet 1 tab PO DAILY RF: 0 sulfamethoxazole-trimethoprim 1 TABLET tablet 1 tab PO BID Qty: 14 RF: 0 cephalexin 500 MG capsule 500 mg PO Q6 Qty: 28 RF: 0 amlodipine 2.5 mg tablet 2.5 mg PO DAILY Qty: 30 RF: 11 atorvastatin 80 mg tablet 80 mg PO QHS Qty: 90 RF: 3 Primary Care Provider: India Khan
[2020-09-27 02:25] LABS: Magnesium 2.5 mg/dL (1.6-2.6)
[2020-09-27 02:41] LABS: Mucous, Urine 0 SEEN /hpf (<or=2+); Squamous Epithelial Cells - UA 0 SEEN /hpf (0-5)
[2020-09-27 02:42] LABS: Color, Urine Yellow (Yellow); Glucose, Dipstick 250 mg/dl (Normal); Ketone-Dipstick Negative (Negative); Leukocyte Esterase-Dipstick 25 /ul (Negative); Nitrite-Dipstick Negative (Negative); Occult Blood-Urine 250 /ul (Negative); Protein-Dipstick 500 mg/dl (Negative); Specific Gravity, Urine 1.015 (1.002-1.030); Urine Bilirubin Dipstick Negative (Negative); Urine Clarity Sl. Cloudy (Clear); Urine Urobilinogen Normal (Normal)
--- NOTE | 2020-09-27 02:44 | CT_ITS ---
STUDY: CT CERVICAL SPINE WITHOUT CONTRAST REASON FOR EXAM: Male, 75 years old. fall RADIATION DOSAGE (If Supplied By Facility): CTDIvol = ( 25.70 ) mGy, DLP = ( 602.61 ) mGycm TECHNIQUE: High resolution transaxial imaging was performed without contrast material. Sagittal and coronal images were reconstructed. Individualized dose optimization techniques were used for this CT. COMPARISON: None FINDINGS: Normal craniovertebral junction. Normal anterior atlantoaxial articulation. Normal odontoid process. Normal cervical lordosis. Normal vertebral bodies and posterior osseous elements. No acute fracture or listhesis. [id number] multilevel degenerative disc disease without critical stenosis. Partially visualized ET tube and enteric tube. Diffuse patchy airspace disease throughout the left upper lobe. Normal visualized soft tissue structures. CT/Spine Cervical without Contras IMPRESSION: Multilevel degenerative changes, as described above. Electronically Signed: Florian Santana DO at 3:48 EDT Tel , Service support ,
--- NOTE | 2020-09-27 02:44 | CT_ITS ---
STUDY: CT FACIAL BONES WITHOUT CONTRAST REASON FOR EXAM: Male, 75 years old. jaw swelling RADIATION DOSAGE (If Supplied By Facility): CTDIvol = ( 29.38 ) mGy, DLP = ( 650.30 ) mGycm TECHNIQUE: The patient was scanned in a multi detector CT scanner. Sagittal and coronal images were reconstructed. Individualized dose optimization techniques were used for this CT. COMPARISON: None. FINDINGS: Normal soft tissue structures. Normal orbital kitchen and orbital contents. Normal nasal bones and anterior nasal spine. Normal facial bones. There is no demonstrated fracture. Normal visualized paranasal sinuses. Partially visualized ET tube and enteric tube CT/Sinus/Facial Bone IMPRESSION: Normal unenhanced CT of the facial bones. Electronically Signed: Florian Santana DO at 3:49 EDT Tel , Service support ,
--- NOTE | 2020-09-27 02:44 | CT_ITS ---
STUDY: CT BRAIN WITHOUT CONTRAST REASON FOR EXAM: Male, 75 years old. altered mental status RADIATION DOSAGE (If Supplied By Facility): CTDIvol = ( 44.99 ) mGy, DLP = ( 880.47 ) mGycm TECHNIQUE: Transaxial CT imaging of the brain was performed without administration of intravenous contrast material. Individualized dose optimization techniques were used for this CT. COMPARISON: No relevant priors. FINDINGS: Normal soft tissue structures. Normal calvarium. There is mild cerebral atrophy with widening of the extra-axial spaces and ventricular dilatation. There are areas of decreased attenuation within the white matter tracts of the supratentorial brain, consistent with microvascular disease changes. Normal basal ganglia and thalami. Normal brainstem. Normal cerebellum. There is no intracranial hemorrhage. There are no findings of an acute ischemic infarction. Normal visualized paranasal sinuses. Partially visualized ET tube and enteric tube CT/Brain/Head without Contrast IMPRESSION: Chronic involutional changes of the brain. Electronically Signed: Florian Santana DO at 3:34 EDT Tel , Service support ,
[2020-09-27 02:51] LABS: Allen Test Positive; Base Excess -10 mmol/L (-2 to +2); Bicarbonate 17.3 mmol/L (22-26); Blood Gas Specimen Type ART; FI02 30; Mode AC; O2 Delivery Device ET Tube; PEEP 5; PO2 72 mmHG (75-100); RR 12; SITE R Radial; SO2 91 % (95-99); Total Carbon Dioxide 19 mmol/L; Vt 450; pCO2 39.5 mmHg (35-45); pH 7.25 (7.35-7.45)
--- NOTE | 2020-09-27 02:59 | RAD_ITS ---
STUDY: X-RAY - ABDOMEN/PELVIS REASON FOR EXAM: Male, 75 years old. OG PLACEMENT TECHNIQUE: Single AP view of the abdomen / pelvis. COMPARISON: None. FINDINGS: NG tube needs advancement by roughly 9 cm a more appropriate positioning. There is an unremarkable bowel gas pattern. There is no demonstrated free abdominal air. The visualized liver, spleen and kidneys are grossly normal in size and morphology. Normal soft tissue structures. Normal visualized osseous structures. RAD/Abdomen Single View (Portable) IMPRESSION: As above Electronically Signed: Florian Santana DO at 3:32 EDT Tel , Service support ,
[2020-09-27 03:00] LABS: Amphetamine Urine VISTA NEGATIVE (<1000 ng/mL); Barbiturate Urine VISTA NEGATIVE (< 200 ng/mL); Benzodiazepine Urine VISTA NEGATIVE (< 200 ng/mL); Cocaine Urine VISTA NEGATIVE (< 300 ng/mL); Ecstacy Urine VISTA NEGATIVE (< 500 ng/mL); Methadone Urine VISTA NEGATIVE (< 300 ng/mL); PCP Urine VISTA NEGATIVE (< 25 ng/mL); THC Urine VISTA NEGATIVE (< 50 ng/mL); Vista UDS pH Range 6
[2020-09-27 03:01] LABS: Total Cells Counted 100 (MANUAL DIFF)
[2020-09-27 03:05] LABS: Myelocyte 1 % (0-0); Neutrophil-Band 2 % (0-5); Neutrophil-Segmented 39 % (47-70)
[2020-09-27 03:06] LABS: Basophil 1 % (0-1); Lymphocyte 52 % (19-41); Monocyte 5 % (0-10)
[2020-09-27 03:07] LABS: Absolute Lymphocyte Count 5.61 X10^3/uL (0.83-4.51); Absolute Neutrophil Count 4.4 X10^3/uL (2.0-7.7); Atypical Lymphocyte 1+ %; Lymphocyte # 5.61 X10^3/ul (0.83-4.51); Neutrophil # 4.42 X10^3/uL (2.7-7.7); Smudge Cells RARE
[2020-09-27 03:08] LABS: Anisocytosis 1+; Macrocytosis 1+; Platelet Estimate ADEQUATE (ADEQ)
[2020-09-27 03:14] LABS: Bacteria 2+ /hpf (None Seen); Red Blood Cells-Urine > 100 SEEN /hpf (0-5); Renal Epithelial Cells 0-5 SEEN /hpf (0-5); White Blood Cells 10-25 SEEN /hpf (0-5)
[2020-09-27] MEDS: 0.9% Normal Saline 1,000 ML 150 ML IV (03:41)
--- NOTE | 2020-09-27 04:22 | ED.RN ---
marin aguero in room to take pictures of bruise to left side of the face
[2020-09-27 04:38] LABS: Troponin-I HS 394.9 pg/mL (3.0-78.5)
--- NOTE | 2020-09-27 04:53 | HP.PCM.HOS_ITS ---
HPI - General General Date of Admission: 09/27/20 Date of Service: 09/27/20 Chief Complaint: Cardiopulmonary arrest HPI Narrative CORONA SULLIVAN, is a 75 M with a significant history of ischemic cardiomyopathy CAD status post stent; and second-degree A-V block, Mobitz type I who was brought to emergency department with unresponsiveness. History was taken from emergency department doctor as patient was unresponsive and family could not be reached. Patient is well-known by was the police department. He is known for trading illicit drugs with sex. Reportedly someone at his house called the patient was overdosing. By the time the police got to patient house there was no one in patient's house except patient was unresponsive and was sitting in a chair. Reportedly paramedics got there after the police and started CPR. On the field patient received 4 rounds of epinephrine and 1 round of bicarb. Patient achieved ROSC. At the emergency department patient lost his pulse. ACLS protocol with chest compressions and epinephrine was administered. Patient was subsequently placed on Levophed drip. A femoral central line was placed at the ED to make room for a possible chest compression if needed. After intubation patient was noted to have some blood in his hypopharynx and that was suctioned. Initial troponin was mildly elevated. Follow-up troponin angela. ED doc discussed with cardiology. [facility], [facility] Medical History Angina pectoris Atherosclerotic heart disease of [place] coronary artery without angina pectoris Essential hypertension Ischemic cardiomyopathy Presence of stent in coronary artery (~03/29/07) Pure hypercholesterolemia Second degree AV block, Mobitz type I Tachycardia Home Medications nitroglycerin 0.4 mg sublingual tablet 0.4 mg SUBLINGUAL Q5M PRN #25 tab 05/31/17 [Rx Last Taken Unknown] pmfjwotf-wgx-JQ-lycopen-lutein 1 tab PO DAILY 11/28/19 [History Last Taken 11/26/19] tadalafil 10 mg PO DAILY PRN PRN 11/28/19 [History Last Taken 11/27/19] aspirin 325 mg tablet 325 mg PO DAILY 01/05/20 [History Last Taken Unknown] amlodipine 2.5 mg tablet 2.5 mg PO DAILY #30 tab 01/09/20 [Rx Last Taken Unknown] atorvastatin 80 mg tablet 80 mg PO QHS #90 tab 01/13/20 [Rx Last Taken Unknown] cephalexin 500 mg PO Q6 #28 cap 05/16/20 [Rx Last Taken Unknown] sulfamethoxazole-trimethoprim 1 tab PO BID #14 tab 05/16/20 [Rx Last Taken Unknown] Allergy/AdvReac Type Severity Reaction Status Date / Time lisinopril AdvReac Intermediate Unknown Verified 09/27/20 01:51 losartan AdvReac Intermediate Diarrhea Verified 09/27/20 01:51 Family History Father CAD (coronary artery disease) Mother Alzheimer's disease Sister Breast cancer Hyperlipidemia Hypertension Surgical History Presence of coronary angioplasty implant and graft (~03/29/07) Social History Smoking Status: Never smoker alcohol intake: never substance use type: does not use caffeine: No what type of physical activity do you participate in: other details: tredmill frequency: 5-6 times per week duration: 30-45 minutes/day seatbelt use: always do you feel safe at home: Yes ROS Review of Systems ROS Unobtainable: due to encephalopathy Vital Signs Vital Signs Vital Signs: 09/27/20 01:28 09/27/20 01:30 09/27/20 01:32 Temperature 96.3 F L 96.3 F L Temperature Source Temporal Temporal Pulse Rate 111 H 111 H Respiratory Rate 15 15 Respiratory Pattern Blood Pressure 62/38 L 50/39 L Blood Pressure Mean 46 42 Pulse Ox 93 93 96 Oxygen Delivery Method Ambu-Bag Ambu-Bag Ambu-Bag Fraction of Inspired Oxygen (FIO2) 09/27/20 01:43 09/27/20 01:47 09/27/20 01:51 Temperature 96.6 F L Temperature Source Core Pulse Rate Respiratory Rate Respiratory Pattern Blood Pressure 58/13 L Blood Pressure Mean 28 Pulse Ox Oxygen Delivery Method Ambu-Bag Fraction of Inspired Oxygen (FIO2) 09/27/20 01:57 09/27/20 02:01 09/27/20 02:04 Temperature Temperature Source Pulse Rate 55 L 89 Respiratory Rate 14 29 H Respiratory Pattern Normal Blood Pressure 112/57 L 81/38 L Blood Pressure Mean 75 52 Pulse Ox 97 100 Oxygen Delivery Method Ambu-Bag Fraction of Inspired Oxygen (FIO2) 30 09/27/20 02:05 09/27/20 02:06 09/27/20 02:10 Temperature Temperature Source Pulse Rate 86 84 Respiratory Rate 18 16 Respiratory Pattern Blood Pressure 81/38 L 160/95 H Blood Pressure Mean 52 116 Pulse Ox 97 93 Oxygen Delivery Method Ambu-Bag Ambu-Bag Fraction of Inspired Oxygen (FIO2) 09/27/20 02:11 09/27/20 02:16 09/27/20 02:30 Temperature 96.3 F L Temperature Source Core Pulse Rate 96 90 Respiratory Rate 19 H 14 Respiratory Pattern Blood Pressure 130/82 H 118/86 H 103/78 Blood Pressure Mean 98 96 86 Pulse Ox 99 99 Oxygen Delivery Method Ambu-Bag Mechanical Ventilator Fraction of Inspired Oxygen (FIO2) 09/27/20 02:36 09/27/20 02:46 09/27/20 03:00 Temperature 94.1 F L Temperature Source Core Pulse Rate 88 88 89 Respiratory Rate 18 13 16 Respiratory Pattern Blood Pressure 111/82 H 109/70 117/70 Blood Pressure Mean 91 83 85 Pulse Ox 99 97 96 Oxygen Delivery Method Mechanical Ventilator Mechanical Ventilator Mechanical Ventilator Fraction of Inspired Oxygen (FIO2) 09/27/20 03:59 09/27/20 04:02 09/27/20 04:41 Temperature 93.8 F L 93.8 F L Temperature Source Core Core Pulse Rate 99 99 104 H Respiratory Rate 8 L 12 18 Respiratory Pattern Blood Pressure 116/99 H 111/73 98/79 Blood Pressure Mean 104 85 85 Pulse Ox 92 93 Oxygen Delivery Method Mechanical Ventilator Mechanical Ventilator Fraction of Inspired Oxygen (FIO2) 100 100 Weight Weight: 84.9 kg Body Mass Index (BMI) 27.6 Physical Exam Narrative Physical exam: General: Well-nourished, well-developed. Head: Normocephalic, petechial rash and ecchymosis on left jaw Eyes: Miotic pupils that does not react to light. ENT: ET tube in place. A ella blood in OG tube. Neck: Trachea midline CVS: Tachycardia; regular rhythm Respiratory : Tachypnea; rhonchi Abdomen: Soft, nontender, nondistended, normal bowel sounds, no masses : Bruno catheter in place Back: Nontender, no CVA tenderness, no midline spinal tenderness, deformities, step-offs Skin: Petechial rash and ecchymosis on left jaw Neuro: Intubated and sedated and on mechanical ventilation. Psychiatry: Intubated and sedated and on mechanical ventilation. Results Lab / Micro Data Result Diagrams: 09/27/20 01:30 09/27/20 01:30 Labs: Laboratory Results - last 24 hr 09/27/20 01:30: WBC 10.8, RBC 3.98 L, Hgb 12.0 L, Hct 39.8 L, MCV 100.0 H, MCH 30.2, MCHC 30.2 L, RDW Std Deviation 47.3 H, RDW Coeff of Rafael 12.7, Plt Count 17 6, MPV 9.7, Neut % (Auto) Not Reportable, Absolute Neuts (auto) 4.4, Absolute Lymphs (auto) 5.61 H, Total Counted 100, Neutrophils % (Manual) 39 L, Band N eutrophils % 2, Lymphocytes % (Manual) 52 H, Monocytes % (Manual) 5, Basophils % (Manual) 1, Myelocytes % 1 H, Diff Path Review May foll, Atypical Lymphocytes 1+, Smudge Cells RARE, Platelet Estimate ADEQUATE, Anisocytosis 1+, Macrocytosis 1+ 09/27/20 01:30: PT 14.8, INR 1.2, APTT 41.2 H 09/27/20 01:30: Sodium 144, Potassium 3.2 L, Chloride 107, Carbon Dioxide 23.0, Anion Gap 14, BUN 26 H, Creatinine 1.81 H, Estim Creat Clear Calc 35.26, Est GFR (MDRD) Af Amer 47 L, Est GFR (MDRD) Non-Af 39 L, BUN/Creatinine Ratio 14.4, Glucose 308 H, Calcium 8.2 L, Total Bilirubin 0.20, AST 105 H, ALT 102 H, Alkaline Phosphatase 80, Troponin I High Sens 68.2, Total Protein 6.1 L, Albumin 3.3, Globulin 2.8, Albumin/Globulin Ratio 1.2 09/27/20 01:30: Lactic Acid 9.6 H* 09/27/20 01:30: Ethyl Alcohol 6.0 09/27/20 01:30: Magnesium 2.5 09/27/20 02:30: Urine Color Yellow, Urine Clarity Sl. Cloudy, Urine pH 7.0, Ur Specific [place] 1.015, Urine Protein 500 H, Urine Glucose (UA) 250 H, Urine Ketones Negative, Urine Occult Blood 250 H, Urine Nitrite Negative, Urine Bilirubin Negative, Urine Urobilinogen Normal, Ur Leukocyte Esterase 25 H, Urine RBC > 100 SEEN, Urine WBC 10-25 SEEN, Ur Squamous Epith Cells 0 SEEN, Ur Renal Epithelial Cell 0-5 SEEN, Urine Bacteria 2+, Urine Mucus 0 SEEN 09/27/20 02:30: Urine Opiates Screen NEGATIVE, Urine Methadone Screen NEGATIVE, Ur Barbiturates Screen NEGATIVE, Ur Phencyclidine Scrn NEGATIVE, Ur Amphetamines Screen NEGATIVE, U Methamphetamin-MDMA NEGATIVE, U Benzodiazepines Scrn NEGATIVE, Urine Cocaine Screen NEGATIVE, U Cannabinoids Screen NEGATIVE, Ur Drug Screen Comment 09/27/20 03:40: Troponin I High Sens 394.9 H* Micro: Microbiology 09/27/20 02:30 Mucosa - Nose SARS-CoV-2 Antigen (Rapid) - Final ABG Data ABG results: ABG 09/27/20 02:46 Specimen Type ART Sample Site R Radial pH 7.25 L Bicarbonate Actual 17.3 L Total CO2 19 Base Excess -10 L O2 Saturation 91 L O2 % 30 ABG pCO2 39.5 ABG pO2 72 L Rene Test Positive Respiration Rate 12 O2 Delivery Device ET Tube Vent Mode AC Tidal Volume 450 POC PEEP 5 Radiology Impression Chest X-Ray 09/27/20 01:30 IMPRESSION: ET tube as above. Right lung is clear. Patchy airspace disease in the left lung Electronically Signed: Florian Santana DO at 2:35 EDT Tel , Service support , Brain CT 09/27/20 02:44 IMPRESSION: Chronic involutional changes of the brain. Electronically Signed: Florian Santana DO at 3:34 EDT Tel , Service support , Cervical Spine CT 09/27/20 02:44 IMPRESSION: Multilevel degenerative changes, as described above. Electronically Signed: Florian Santana DO at 3:48 EDT Tel , Service support , Facial/Sinus 09/27/20 02:44 IMPRESSION: Normal unenhanced CT of the facial bones. Electronically Signed: Florian Santana DO at 3:49 EDT Tel , Service support , KUB X-Ray 09/27/20 02:59 IMPRESSION: As above Electronically Signed: Florian Santana DO at 3:32 EDT Tel , Service support , Assessment & Plan Assessment/Plan (1) Cardiopulmonary arrest with successful resuscitation: (2) Septic shock: PLAN: Cardiopulmonary arrest with resuscitation Admit to intensive care unit. Per cardiology recommendation will get an echo cardiogram. Review of Emergency department labs showed elevated troponin; trend EKG reviewed showed inverted P waves and wide complexes. Brain CT of chronic involutional changes. No acute pathology. Check magnesium and phosphorus Trend CBC and BMP. Cardiology consult Septic shock Patient with hypotensive (Systolic blood pressure less than 90) and hypothermia with low-grade temperature 93.8. Radiologist impression of chest x-ray: Patchy airspace disease in the left lung. Actual chest x-ray image was independently reviewed and I agree with radiologist interpretation Received a normal saline bolus per septic shock protocol. Levophed started emergency department; continued. Intubated and sedated at the emergency department; continued. Adjustments made to sedative drugs. Discussed with drafting supervisor. Oxidized Finish Plater consult. GI prophylaxis: Pepcid p.o. ordered. DVT prophylaxis: SCD for now. We will hold off chemical chemoprophylaxis secondary to bleeding after intubation. At a time of examination no active bleeding was noted but it may be appropriate to hold on chemical thromboprop hylaxis and appropriate. Charges/Coding Multi Select Codes Visit Charges Visit Charges: 15357 Init Hosp L3
--- NOTE | 2020-09-27 05:07 | ED.RN ---
ng advanced further per doctors order. xray to confirm placement
--- NOTE | 2020-09-27 05:30 | ED.RN ---
Dr. Bhakta wanting patient on profol and fentanyl at this time levo increased to tolerate medications
[2020-09-27] MEDS: Propofol 10MG/Ml 1,000 MG/100 ML Bottle 5.1 MG CONT INF ×2 (05:31→16:18)
--- NOTE | 2020-09-27 05:40 | ED.RN ---
at this time patient will be watched in the er until sedation works for patient per Dr. HUMMEL
[2020-09-27 05:44] LABS: Reflex Lactate? Y
--- NOTE | 2020-09-27 06:41 | RAD_ITS ---
STUDY: X-RAY CHEST REASON FOR EXAM: Male, 75 years old. Pneumo TECHNIQUE: Single AP portable view of the chest. COMPARISON: Comparison is made with prior chest radiograph dated 09/27/2020 at 2:11 AM. FINDINGS: An endotracheal tube is in situ. The tip is at 2.9 cm proximal to the lili. An orogastric tube is seen with the tip in the distal portion of the stomach. There is evidence of a marked degree of subcutaneous emphysema involving the entire thoracic cavity with extension to the cervical region. There is evidence of increased markings at the right lung base and in the left upper lobe suggestive of a infiltrate. Normal size heart. Normal mediastinum and rosario. Normal visualized pulmonary arteries. Normal visualized aortic arch and descending thoracic aorta. Normal visualized thoracic spine. There is degenerative osteoarthritis of the bilateral shoulders. There is no demonstrated abnormality of the visualized soft tissue structures of the upper abdomen. RAD/Chest 1 View (Portable) IMPRESSION: Extensive bilateral and cervical thoracic subcutaneous base emphysema with infiltrates at the right lung base and in the left lung as described. I cannot rule out a small pneumothorax in the right hemithorax. Electronically Signed: Jorge Patel MD at 8:19 EDT , Service support ,
[2020-09-27 06:56] LABS: Lactic Acid 3.9 mmol/L (0.4-1.9)
--- NOTE | 2020-09-27 07:18 | NURSING ---
Dr.s Robison and Francie both present in pt room prep for chest tube placement 0720 HR 105 R 28 BP 88/72 SpO2 92 FiO2 85% PEEP 0 procedure begun 0725 HR 99 R 26 BP 98/68 SpO2 93 open chest, tube in place
--- NOTE | 2020-09-27 07:27 | RAD_ITS ---
STUDY: X-RAY CHEST REASON FOR EXAM: Male, 75 years old. Line placement -- chest tube placement TECHNIQUE: Single AP portable view of the chest. COMPARISON: Comparison is made with prior examination done earlier today at 6:37 AM. FINDINGS: An endotracheal tube is in situ. The tip is at 3.1 cm proximal to the lili. The tip of the nasogastric tube is in the distal portion of the stomach. A right-sided chest tube has been placed with the tip in the medial aspect of the right upper lobe. Diffuse bilateral subcutaneous emphysema overlying the thorax as well as the cervical region RAD/Chest 1 View (Portable) IMPRESSION: Status post insertion of a chest tube in the right hemithorax with the tip in the medial aspect of the right upper lobe. The remainder of the examination Electronically Signed: Jorge Patel MD at 8:25 EDT , Service support ,
[2020-09-27 07:41] LABS: Phosphorus 4.1 mg/dL (2.5-4.9)
[2020-09-27 07:45] LABS: Magnesium 2.1 mg/dL (1.6-2.6)
--- NOTE | 2020-09-27 07:46 | PCM.RX.CS ---
Consult Pharmacy has been consulted to manage selected antiobiotic: Vancomycin Type of Consult: New start Suspected Infection: Sepsis Prior Doses of Antibiotics Received/Current Regimen: 1250MG X1 IN E.R. STARTING AT 05:24 TODAY Labs: Sodium 144 mmol/L (136-145) 09/27/20 01:30 Potassium 3.2 mmol/L (3.5-5.1) L 09/27/20 01:30 Chloride 107 mmol/L (98-107) 09/27/20 01:30 Carbon Dioxide 23.0 mmol/L (21.0-32.0) 09/27/20 01:30 Anion Gap 14 (5-15) 09/27/20 01:30 BUN 26 mg/dL (7-18) H 09/27/20 01:30 Creatinine 1.81 mg/dL (0.70-1.30) H 09/27/20 01:30 Est GFR (MDRD) Af Amer 47 mL/min (>60) L 09/27/20 01:30 Est GFR (MDRD) Non-Af 39 mL/min (>60) L 09/27/20 01:30 BUN/Creatinine Ratio 14.4 RATIO (10-20) 09/27/20 01:30 Glucose 308 mg/dL (74-106) H 09/27/20 01:30 Microbiology: Microbiology 09/27/20 02:30 Mucosa - Nose SARS-CoV-2 Antigen (Rapid) - Final Weight used for dosin.9 kg Estimated Creatinine Clearance: 35 ML/MIN Goal Trough: 15-20 mcg/mL Pharmacy Plan for Drug Dosing: After the E.R. dose is finished, will continue with vancomycin 1250mg IV q24h tomorrow morning. Will check a trough level before the 3rd total dose on Wednesday. Pharmacy Service will continue to monitor and adjust dosing as required. Follow-Up Labs: Trough Vancomycin Labs to be done on [date and time ordered]: 09/29/20 04:30
--- NOTE | 2020-09-27 07:47 | OP.PCM_ITS ---
Problems Associated Problem List Diagnoses (1) Cardiopulmonary arrest with successful resuscitation: (2) Pneumothorax: Report of Operation Date of Procedure: 09/27/20 Pre-Operative Diagnosis: 1. Pneumothorax right side 2. Cardiopulmonary arrest Post-Operative Diagnosis: Same Surgery/Procedure Performed:: Placement of a 36 Azerbaijani right-sided chest tube Surgeon: Saroj Marmolejo infusion rn: None Type of Anesthesia: Local Estimated Blood Loss (mL): 25cc Description of Procedure: Patient was brought in by the squad he coded underwent cardiopulmonary resuscitation and was successful at reviving him. Upon bringing him up from the ER to the ICU he developed subcu emphysema significantly all on the right side but some as well on the left side. Chest x-ray showed a pneumothorax on the right side but it was difficult really to ascertain what was going on on the left side. I discussed this with Dr. Ricki Vásquez decided since he was having to go up on his PEEP he needed to have an emergent chest tube placed on the right side. I prepped the right side with chlorhexidine. 1% li docaine was injected incision was made. Small area was escaping from the subcutaneous tissue. I was able to place a [facility] clamp above the rib and get into the chest cavity large gush of air as well as blood was identified. I initially was going to place a 20 Azerbaijani chest tube once I got all that blood back I decided it would be best to place a 36 Azerbaij[place] chest tube which I was successful at placing into the chest. I sutured it to the skin with 2-0 Nurolon's. I hooked it up to the suction tubing into the canister large air leak was identified. Sterile dressings were applied portable chest x-ray was obtained and the lung appeared to be inflated and no residual pneumothorax was identified. It was difficult secondary to him having such significant subcutaneous emphysema. Admit VTE Documentation VTE Present on Admission: No VTE Pharm Prophylaxis ordered?: No Reason prophylaxis not ordered:: Treatment Not Indicated
[2020-09-27 08:10] LABS: Allen Test Positive; Base Excess -9 mmol/L (-2 to +2); Bicarbonate 18.9 mmol/L (22-26); Blood Gas Specimen Type ART; FI02 70; Mode AC; O2 Delivery Device Adult Vent; PEEP 5; PO2 105 mmHG (75-100); RR 12; SITE L Radial; SO2 97 % (95-99); Total Carbon Dioxide 20 mmol/L; Vt 450; pCO2 45.1 mmHg (35-45); pH 7.23 (7.35-7.45)
[2020-09-27] MEDS: 0.9% Normal Saline 1,000 ML 100 ML IV ×2 (08:21→21:38)
--- NOTE | 2020-09-27 08:48 | CON.PCM.CC_ITS ---
Assessment & Plan Assessment/Plan (1) Cardiopulmonary arrest with successful resuscitation: (2) Pneumothorax: (3) Atherosclerotic heart disease of [place] coronary artery without angina pectoris: QUALIFIERS: [place] vs. transplanted heart: [place] heart Qualified Code(s): I25.10 - Atherosclerotic heart disease of [place] coronary artery without angina pectoris (4) Ischemic cardiomyopathy: PLAN: RECOMMENDATIONS: 1. Minimize sedation and fentanyl 2. Continue neurochecks 3. Repeat H&H every 6 hours. BMP with next blood draw 4. Continue chest tube to suction 5. Wean FiO2 as tolerated. 6. Contact [facility] to discuss with sister IMPRESSIONS: 1. Cardiopulmonary arrest of unclear etiology Very little information noted at this time. Patient is currently on Levophed to maintain adequate blood pressures. Patient's oxygenation appears to be improving following placement of the chest tube. We will continue to wean oxygen as tolerated. Spontaneous breathing and awakening trials will be contingent on patient's neuro status. 2. Acute hypoxic respiratory failure Unclear etiology. Patient does have increased infiltrates on the left. It is unclear if patient has an aspiration event. Patient did have a significant right-sided pneumothorax on presentation to the ER and appears to have some rib fractures. Patient reportedly has been a smoker in the past, so an element of COPD cannot be excluded. 3. Right pneumothorax secondary to probable rib fractures following CPR Patient with initial blood return on chest tube placement. However, patient does not appear to have consistent output. This would be consistent with rib fractures leading to a pneumothorax. Continue chest tube on suction. Surgery is following. 4. Septic versus cardiogenic shock Lack of history is significant. Patient has a history of ischemic cardiomyopathy. Unclear how long patient was down prior to EMS arrival. Patient was in asystole, but was able to get ROSC. Unfortunately, TTM is not available. Could treat patient with empiric antibiotics, but low clinical suspicion for infectious etiology given lack of fever and leukocytosis. 5. Probable anoxic injury Patient appears to have myoclonic jerking at this time. Patient has a GCS of 3. Unclear if this is related to acute event versus anoxic injury. CT on presentation showed only chronic involutional changes. Patient appears to have a significant amount of downtime of at least 15 minutes. Patient may be a candidate for organ transplantation pending outcome. Patient still has some respirations above the ventilator, so hold on any brain protocol 6. Genital herpes/reported polysubstance abuse/history of ischemic cardiomyopathy/advanced age/poor history Complicates care, management, recovery and prognosis. Patient would be at risk for STDs, but it is unclear that this would lead to presentation. Patient also has a history of ischemic cardiomyopathy, but unfortunately subcutaneous emphysema is not allowing for an echocardiogram. Patient sister has been notified of patient's condition. Patient appears to be estranged from multiple family members. Social work reports patient does have a living will on record. TIME: 85 minutes of critical care time spent addressing patient's cardiopulmonary arrest, hypoxic respiratory failure, pneumothorax, shock, anoxic brain injury, review of all data and collaboration with care team (6:30 AM to 9:30 AM) HPI Consult Data Date of Consult: 09/27/20 HPI Narrative HPI Narrative: CORONA SULLIVAN is a 75 M, with past medical history listed below, who presents to [facility] on 09/27/2020 in cardiopulmonary arrest via EMS. Patient was reportedly found unresponsive by EMS after 911 was called. Patient reportedly received no bystander CPR and initial rhythm was noticed asystole. Patient reportedly had achieved ROSC by time he mated to the ER. In the ER, patient was afebrile, but hypotensive at 62/38. Patient was receiving bag mask ventilation to maintain saturations. Patient was intubated by ER staff with reported little difficulty. However, patient did have some tongue laceration. Patient reportedly had poor ventilation, so endotracheal tube was exchanged. Patient did require CPR, so central line had to be placed in the femoral position. Patient appeared to have some bruising on the jawline. Patient was also noted to have blood from the endotracheal tube there was thought to be secondary to CPR. The patient was then transferred to the intens chris care unit for further evaluation. On arrival to the intensive care unit, patient was noted to have significant subcutaneous emphysema from the top of his head to his groin. PEEP was lowered to 0. This did require an increase in FiO2 to 85%. A chest x-ray was obtained, but it was difficult to evaluate secondary to the degree of artifact with subcutaneous emphysema. It appeared patient had a right pneumothorax on my evaluation. Called ER to get a second opinion and also called the surgeon conciliation court judge. After discussion, it was determined a right pneumothorax was most likely. Chest tube was placed by surgery. Patient did have an element of hemothorax, so a larger bore chest tube was used. Patient did have significant improvement in subcutaneous emphysema and oxygenation following its placement. 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 Patient is also been noted to have overdose episodes in the past. No history is available from the patient himself and there is no bystander report. [facility] Medical History Angina pectoris Atherosclerotic heart disease of [place] coronary artery without angina pectoris Essential hypertension Ischemic cardiomyopathy Presence of stent in coronary artery (~03/29/07) Pure hypercholesterolemia Second degree AV block, Mobitz type I Tachycardia Home Medications nitroglycerin 0.4 mg sublingual tablet 0.4 mg SUBLINGUAL Q5M PRN #25 tab 8 [Rx Last Taken Unknown] oddkqfpl-eis-AG-lycopen-lutein 1 tab PO DAILY 11/28/19 [History Last Taken 11/26/19] tadalafil 10 mg PO DAILY PRN PRN 11/28/19 [History Last Taken 11/27/19] aspirin 325 mg tablet 325 mg PO DAILY 01/05/20 [History Last Taken Unknown] amlodipine 2.5 mg tablet 2.5 mg PO DAILY #30 tab 01/09/20 [Rx Last Taken Unknown] atorvastatin 80 mg tablet 80 mg PO QHS #90 tab 01/13/20 [Rx Last Taken Unknown] cephalexin 500 mg PO Q6 #28 cap 05/16/20 [Rx Last Taken Unknown] sulfamethoxazole-trimethoprim 1 tab PO BID #14 tab 05/16/20 [Rx Last Taken Unknown] Allergy/AdvReac Type Severity Reaction Status Date / Time lisinopril AdvReac Intermediate Unknown Verified 09/27/20 01:51 losartan AdvReac Intermediate Diarrhea Verified 09/27/20 01:51 Family History Father CAD (coronary artery disease) Mother Alzheimer's disease Sister Breast cancer Hyperlipidemia Hypertension Surgical History Presence of coronary angioplasty implant and graft (~03/29/07) Social History Smoking Status: Never smoker alcohol intake: never substance use type: does not use caffeine: No what type of physical activity do you participate in: other details: tredmill frequency: 5-6 times per week duration: 30-45 minutes/day seatbelt use: always do you feel safe at home: Yes ROS Review of Systems ROS Unobtainable: due to encephalopathy Physical Exam Const General Appearance: appears older than stated age, intubated and patient mechanically ventilated Orientation / Consciousness: obtunded HEENT normocephalic and moist oral mucous membranes Face and Sinus: facial ecchymosis right Positive for angle of jaw Eyes PERRL and EOMs intact bilaterally Neck full ROM and no lymphadenopathy Chest Chest: chest tube right Resp Resp Narrative: SubQ emphysema much improved following chest tube placement. Still with significant crepitus throughout head, chest, back and bilateral upper extremities. Auscultation: rhonchi throughout; Negative for rales or wheezes Percussion: Negative for dullness Cardio regular rhythm, S1 normal heart sound, S2 normal heart sound, no murmurs, no rub and no gallops Rate: tachycardic GI normal to inspection, nondistended, normoactive bowel sounds no CVA tenderness Narrative: Herpetic lesions noted of the penis and scrotum Extremity no clubbing, cyanosis or edema Skin Skin Narrative: Bruising noted on the inferior lateral aspect of the left mandible. Patient also with bruising of the right temporal area Neuro Neuro Narrative: Little to no spontaneous movement noted. Some myoclonus [place] Coma Scale: document GCS findings None None None 3 Psych Appearance: unkempt, disheveled and intubated Lab / Micro Data Result Diagrams: 09/27/20 01:30 09/27/20 01:30 Labs: Laboratory Results - last 24 hr 09/27/20 01:30: WBC 10.8, RBC 3.98 L, Hgb 12.0 L, Hct 39.8 L, MCV 100.0 H, MCH 30.2, MCHC 30.2 L, RDW Std Deviation 47.3 H, RDW Coeff of Rafael 12.7, Plt Count 176, MPV 9.7, Neut % (Auto) Not Reportable, Absolute Neuts (auto) 4.4, Absolute Lymphs (auto) 5.61 H, Total Counted 100, Neutrophils % (Manual) 39 L, Band Neutrophils % 2, Lymphocytes % (Manual) 52 H, Monocytes % (Manual) 5, Basophils % (Manual) 1, Myelocytes % 1 H, Diff Path Review May foll, Atypical Lymphocytes 1+, Smudge Cells RARE, Platelet Estimate ADEQUATE, Anisocytosis 1+, Macrocytosis 1+ 09/27/20 01:30: PT 14.8, INR 1.2, APTT 41.2 H 09/27/20 01:30: Sodium 144, Potassium 3.2 L, Chloride 107, Carbon Dioxide 23.0, Anion Gap 14, BUN 26 H, Creatinine 1.81 H, Estim Creat Clear Calc 35.26, Est GFR (MDRD) Af Amer 47 L, Est GFR (MDRD) Non-Af 39 L, BUN/Creatinine Ratio 14.4, Glucose 308 H, Calcium 8.2 L, Total Bilirubin 0.20, AST 105 H, ALT 102 H, Alkaline Phosphatase 80, Troponin I High Sens 68.2, Total Protein 6.1 L, Albumin 3.3, Globulin 2.8, Albumin/Globulin Ratio 1.2 09/27/20 01:30: Lactic Acid 9.6 H* 09/27/20 01:30: Ethyl Alcohol 6.0 09/27/20 01:30: Magnesium 2.5 09/27/20 02:30: Urine Color Yellow, Urine Clarity Sl. Cloudy, Urine pH 7.0, Ur Specific [place] 1.015, Urine Protein 500 H, Urine Glucose (UA) 250 H, Urine Ketones Negative, Urine Occult Blood 250 H, Urine Nitrite Negative, Urine Bilirubin Negative, Urine Urobilinogen Normal, Ur Leukocyte Esterase 25 H, Urine RBC > 100 SEEN, Urine WBC 10-25 SEEN, Ur Squamous Epith Cells 0 SEEN, Ur Renal Epithelial Cell 0-5 SEEN, Urine Bacteria 2+, Urine Mucus 0 SEEN 09/27/20 02:30: Urine Opiates Screen NEGATIVE, Urine Methadone Screen NEGATIVE, Ur Barbiturates Screen NEGATIVE, Ur Phencyclidine Scrn NEGATIVE, Ur Amphetamines Screen NEGATIVE, U Methamphetamin-MDMA NEGATIVE, U Benzodiazepines Scrn NEGATIVE, Urine Cocaine Screen NEGATIVE, U Cannabinoids Screen NEGATIVE, Ur Drug Screen Comment 09/27/20 03:40: Troponin I High Sens 394.9 H* 09/27/20 04:55: COVID-19 (MARIA D) Cancelled 09/27/20 04:55: COVID-19 (MARIA D) Not Detected 09/27/20 05:51: Lactic Acid 3.9 H* 09/27/20 07:10: Magnesium 2.1, Troponin I High Sens 1256.0 H* 09/27/20 07:10: Phosphorus 4.1 Micro: Microbiology 09/27/20 02:30 Mucosa - Nose SARS-CoV-2 Antigen (Rapid) - Final ABG Data ABG results: ABG 09/27/20 09/27/20 02:46 08:07 Specimen Type ART ART Sample Site R Radial L Radial pH 7.25 L 7.23 L Bicarbonate Actual 17.3 L 18.9 L Total CO2 19 20 Base Excess -10 L -9 L O2 Saturation 91 L 97 O2 % 30 70 ABG pCO2 39.5 45.1 H ABG pO2 72 L 105 H Rene Test Positive Positive Respiration Rate 12 12 O2 Delivery Device ET Tube Adult Vent Vent Mode AC AC Tidal Volume 450 450 POC PEEP 5 5 Radiology Impression Chest X-Ray 09/27/20 01:30 IMPRESSION: ET tube as above. Right lung is clear. Patchy airspace disease in the left lung Electronically Signed: Florian AlexeyDO tony at 2:35 EDT Tel , Service support , Brain CT 09/27/20 02:44 IMPRESSION: Chronic involutional changes of the brain. Electronically Signed: Florian Santana DO at 3:34 EDT Tel , Service support , Cervical Spine CT 09/27/20 02:44 IMPRESSION: Multilevel degenerative changes, as described above. Electronically Signed: Florian Santana DO at 3:48 EDT Tel , Service support , Facial/Sinus 09/27/20 02:44 IMPRESSION: Normal unenhanced CT of the facial bones. Electronically Signed: Florian Santana DO at 3:49 EDT Tel , Service support , KUB X-Ray 09/27/20 02:59 IMPRESSION: As above Electronically Signed: Florian Santana DO at 3:32 EDT Tel , Service support , Chest X-Ray 09/27/20 06:41 IMPRESSION: Extensive bilateral and cervical thoracic subcutaneous base emphysema with infiltrates at the right lung base and in the left lung as described. I cannot rule out a small pneumothorax in the right hemithorax. Electronically Signed: Jorge Patel MD at 8:19 EDT , Service support , Chest X-Ray 09/27/20 07:27 IMPRESSION: Status post insertion of a chest tube in the right hemithorax with the tip in the medial aspect of the right upper lobe. The remainder of the examination Electronically Signed: Jorge Patel MD at 8:25 EDT , Service support , Charges/Coding Procedures Hospitalists Procedures: [id number] Critial Care 1st Hr Multi Select Codes Hospitalists' Procedures Procedures: [id number] Critial Care Addl 30 Min
--- NOTE | 2020-09-27 08:56 | PN.HOSP_ITS ---
Subjective Subjective Patient was seen and examined. He is intubated, on [facility] ventilator. He was found this morning to have subcutaneous bilateral emphysema from the cervical region to the lumbar region. Chest tube was placed today. Objective Data Objective Data Vital Signs: Vital Signs Temp Pulse Resp BP Pulse Ox 94.5 F L 98 27 H 96/72 98 09/27/20 06:03 09/27/20 06:35 09/27/20 07:55 09/27/20 06:03 09/27/20 07:55 Oxygen Delivery Method Mechanical Ventilator Weight: 84.9 kg Body Mass Index (BMI) 27.6 Intake & Output: Intake and Output for Last 24 Hours 09/25/20 09/26/20 09/27/20 23:59 23:59 23:59 Intake Total 3243.71 / 3243.71 Output Total 850 / 850 Balance 2393.71 / 2393.71 Lab / Micro Data Result Diagrams: 09/27/20 12:00 09/27/20 12:00 Labs: Laboratory Results - last 24 hr 09/27/20 01:30: WBC 10.8, RBC 3.98 L, Hgb 12.0 L, Hct 39.8 L, MCV 100.0 H, MCH 30.2, MCHC 30.2 L, RDW Std Deviation 47.3 H, RDW Coeff of [place] 12.7, Plt Count 176, MPV 9.7, Neut % (Auto) Not Reportable, Absolute Neuts (auto) 4.4, Absolute Lymphs (auto) 5.61 H, Total Counted 100, Neutrophils % (Manual) 39 L, Band Neutrophils % 2, Lymphocytes % (Manual) 52 H, Monocytes % (Manual) 5, Basophils % (Manual) 1, Myelocytes % 1 H, Diff Path Review May foll, Atypical Lymphocytes 1+, Smudge Cells RARE, Platelet Estimate ADEQUATE, Anisocytosis 1+, Macrocytosis 1+ 09/27/20 01:30: PT 14.8, INR 1.2, APTT 41.2 H 09/27/20 01:30: Sodium 144, Potassium 3.2 L, Chloride 107, Carbon Dioxide 23.0, Anion Gap 14, BUN 26 H, Creatinine 1.81 H, Estim Creat Clear Calc 35.26, Est GFR (MDRD) Af Amer 47 L, Est GFR (MDRD) Non-Af 39 L, BUN/Creatinine Ratio 14.4, Glucose 308 H, Calcium 8.2 L, Total Bilirubin 0.20, AST 105 H, ALT 102 H, Alkaline Phosphatase 80, Troponin I High Sens 68.2, Total Protein 6.1 L, Albumin 3.3, Globulin 2.8, Albumin/Globulin Ratio 1.2 09/27/20 01:30: Lactic Acid 9.6 H* 09/27/20 01:30: Ethyl Alcohol 6.0 09/27/20 01:30: Magnesium 2.5 09/27/20 02:30: Urine Color Yellow, Urine Clarity Sl. Cloudy, Urine pH 7.0, Ur Specific [place] 1.015, Urine Protein 500 H, Urine Glucose (UA) 250 H, Urine Ketones Negative, Urine Occult Blood 250 H, Urine Nitrite Negative, Urine Bilirubin Negative, Urine Urobilinogen Normal, Ur Leukocyte Esterase 25 H, Urine RBC > 100 SEEN, Urine WBC 10-25 SEEN, Ur Squamous Epith Cells 0 SEEN, Ur Renal Epithelial Cell 0-5 SEEN, Urine Bacteria 2+, Urine Mucus 0 SEEN 09/27/20 02:30: Urine Opiates Screen NEGATIVE, Urine Methadone Screen NEGATIVE, Ur Barbiturates Screen NEGATIVE, Ur Phencyclidine Scrn NEGATIVE, Ur Amphetamines Screen NEGATIVE, U Methamphetamin-MDMA NEGATIVE, U Benzodiazepines Scrn NEGATIVE, Urine Cocaine Screen NEGATIVE, U Cannabinoids Screen NEGATIVE, Ur Drug Screen Comment 09/27/20 03:40: Troponin I High Sens 394.9 H* 09/27/20 04:55: COVID-19 (MARIA D) Cancelled 09/27/20 04:55: COVID-19 (MARIA D) Not Detected 09/27/20 05:51: Lactic Acid 3.9 H* 09/27/20 07:10: Magnesium 2.1, Troponin I High Sens 1256.0 H* 09/27/20 07:10: Phosphorus 4.1 Micro: Microbiology 09/27/20 02:30 Mucosa - Nose SARS-CoV-2 Antigen (Rapid) - Final ABG Data ABG results: ABG 09/27/20 09/27/20 02:46 08:07 Specimen Type ART ART Sample Site R Radial L Radial pH 7.25 L 7.23 L Bicarbonate Actual 17.3 L 18.9 L Total CO2 19 20 Base Excess -10 L -9 L O2 Saturation 91 L 97 O2 % 30 70 ABG pCO2 39.5 45.1 H ABG pO2 72 L 105 H Rene Test Positive Positive Respiration Rate 12 12 O2 Delivery Device ET Tube Adult Vent Vent Mode AC AC Tidal Volume 450 450 POC PEEP 5 5 Radiography Diagnostic Testing: Radiology Impression Chest X-Ray 09/27/20 01:30 IMPRESSION: ET tube as above. Right lung is clear. Patchy airspace disease in the left lung Electronically Signed: Florian Santana at 2:35 EDT Tel , Service support , Brain CT 09/27/20 02:44 IMPRESSION: Chronic involutional changes of the brain. Electronically Signed: Florian SantanaDO at 3:34 EDT Tel , Service support , Cervical Spine CT 09/27/20 02:44 IMPRESSION: Multilevel degenerative changes, as described above. Electronically Signed: Florian SantanaDO at 3:48 EDT Tel , Service support , Facial/Sinus 09/27/20 02:44 IMPRESSION: Normal unenhanced CT of the facial bones. Electronically Signed: Florian Santana at 3:49 EDT Tel , Service support , KUB X-Ray 09/27/20 02:59 IMPRESSION: As above Electronically Signed: Florian Santana at 3:32 EDT Tel , Service support , Chest X-Ray 09/27/20 06:41 IMPRESSION: Extensive bilateral and cervical thoracic subcutaneous base emphysema with infiltrates at the right lung base and in the left lung as described. I cannot rule out a small pneumothorax in the right hemithorax. Electronically Signed: Jorge Patel MD at 8:19 EDT , Service support , Chest X-Ray 09/27/20 07:27 IMPRESSION: Status post insertion of a chest tube in the right hemithorax with the tip in the medial aspect of the right upper lobe. The remainder of the examination Electronically Signed: Jorge Patel MD at 8:25 EDT , Service support , Physical Exam Narrative Physical exam: General: Sedated, intubated, on mechanical ventilator, extensive subcutaneous emphysema of the face, cervical region, thoracic region HEENT: Endotracheal tube has bloody aspirate, bruise over the left jaw Oral:Dry mucosa Neck: Supple Lungs: Diminished Cardiovascular: HS I+II, regular, no murmurs Abdomen: Bowel Sounds Present, Soft, Non Tender Extremities: Bilateral leg edema, trace to +1 Assessment & Plan Assessment/Plan (1) Pneumothorax: (2) Septic shock: (3) Cardiopulmonary arrest with successful resuscitation: (4) GI bleed: QUALIFIERS: GI bleed type/associated pathology: anorectal hemorrhage Qualified Code(s): K62.5 - Hemorrhage of anus and rectum (5) Presence of stent in coronary artery: (6) Ischemic cardiomyopathy: PLAN: 1. Acute pneumothorax with extensive subcutaneous emphysema, status post chest tube placement Likely secondary to probable rib fractures from CPR General surgery and home demonstrator consulted Vitals look stable for now, intubated, mechanical ventilator 2. Status post cardiopulmonary arrest, unclear etiology Urine tox was negative. Troponins are elevated from CPR 3. Acute hypoxic respiratory failure, likely secondary to #1 and 2 status post intubation and mechanical ventilator ABG showed respiratory acidosis with metabolic acidosis Patient appears comfortable on current minimal ventilatory settings; on minimal sedation with propofol and fentanyl Repeat ABG is pending 4. Septic versus cardiogenic shock, unclear etiology, Chest x-ray shows infiltrates in the right lung base as well as left upper lobe UA is mildly suggestive of UTI WBC count is normal. Lactic acid is 3.9 Continue on IV Zosyn and vancomycin, follow-up on blood and urine cultures 5. Hypokalemia, replaced, will continue to check in the morning 6. CKD stage IIIa, creatinine slightly elevated at 1.81, continue to monitor 7. Rest of his chronic medical condition -CAD status post stent, history of ischemic cardiomyopathy, appears to be stable for now 2D echo in 2019 shows an EF of 45% Urine tox was negative Charges/Coding Procedures Hospitalists Procedures: [id number] Prolonged Physician INPT
[2020-09-27] MEDS: Chlorhexidine 15 ML PO ×2 (09:00→21:29)
[2020-09-27 09:01] LABS: CPK Total, Creatine Kinase 992 U/L (39-308)
--- NOTE | 2020-09-27 09:28 | CASEMGMT ---
As per RN, number in chart for pt's sister does not connect. SW also tried to call the number, it does not go through. SW found daughter Cindy's number on POA form, number is out of order. SW found additional number for chart Holly Giuliana, called, message left. Holly called back, confirmed that pt is her brother. SW put her on the phone w/RN. Pt's sister is going to try to get a hold of pt's children. SW remains available for support to family as needed. POA/LW are on file in e-chart, pt's late is listed first, then sister Holly, then daughter Cindy. JASMEET Olsen
[2020-09-27 10:57] LABS: Triglycerides 76 mg/dL; Troponin-I HS 1661.9 pg/mL (3.0-78.5)
--- NOTE | 2020-09-27 11:15 | CPS ---
ETT is at 25cm in the center of the lips. Dr Robison said last x-ray showed tube was in good position.
--- NOTE | 2020-09-27 11:22 | CASEMGMT ---
RN CM participated in inter-disciplinary rounds. Patient remains on vent with FiO2@ 50%. Patient has chest tube as well. Patient is on fentanyl gtt and Levophed. SW has been in contact with sister and floor nurse has spoke with patient's sister as well. RN CM assessment deferred at this time and will complete when patient is more stable. CM to continue to follow this patient and plan for a safe discharge.
[2020-09-27 12:19] LABS: Hematocrit 34.9 % (40-54)
[2020-09-27] MEDS: 0.9% Saline Lock 10 ML Syringe IV ×5 (12:40→23:35)
[2020-09-27 12:57] LABS: Anion Gap 10 (5-15); BUN 30 mg/dL (7-18); BUN/Creat Ratio 15.3 RATIO (10-20); Calcium,Total 7.5 mg/dL (8.5-10.1); Chloride 117 mmol/L (98-107); Creatinine, Serum 1.96 mg/dL (0.70-1.30); EST Glomerular Filtration Rate 36 mL/min (>60); Est Glom Filt Rate - Afr Amer 43 mL/min (>60); Estimated Creatinine Clearance 32.56 ml/min; Glucose 148 mg/dL (74-106); Magnesium 1.9 mg/dL (1.6-2.6); Phosphorus 1.5 mg/dL (2.5-4.9); Potassium 4.6 mmol/L (3.5-5.1); Sodium Level 146 mmol/L (136-145)
[2020-09-27 13:49] LABS: Pathologist Review Reviewed
[2020-09-27 14:25] LABS: Troponin-I HS 1725.1 pg/mL (3.0-78.5)
[2020-09-27] MEDS: LORazepam 2 MG/ML Syringe IV (16:15)
[2020-09-27] MEDS: TITRATION PARAMETER CHANGE 1 EACH IV ×2 (17:50)
[2020-09-27 18:10] LABS: Hematocrit 32.9 % (40-54); Hemoglobin 10.4 g/dL (13.0-16.5)
[2020-09-27 23:48] LABS: Hematocrit 30.3 % (40-54); Hemoglobin 9.7 g/dL (13.0-16.5)
[2020-09-28] VITALS (37 sets, daily range): BP systolic 91–160; BP diastolic 65–100; PULSE 80–112; RESP 12–32; TEMP 36.2–37.1; O2SAT 93–100
[2020-09-28 05:47] LABS: Absolute Lymphocyte Count 1.11 X10^3/uL (0.83-4.51); Absolute Neutrophil Count 20.8 X10^3/uL (2.0-7.7); Basophil# 0.04 X10^3/uL; Basophil% 0.2 % (0-1); Eosinophils% 0.4 % (0-5); Hematocrit 30.3 % (40-54); Hemoglobin 9.8 g/dL (13.0-16.5); Lymphocyte # 1.11 X10^3/ul (0.83-4.51); Lymphocyte % 4.7 % (19-41); Mean Corp Hgb Conc 32.3 g/dL (32-36); Mean Corpuscular Hgb 30.5 pg (27.0-32.0); Mean Corpuscular Volume 94.4 fL (80-94); Mean Platelet Vol. 9.5 fl (6.2-12.0); Monocyte% 6.3 % (0-10); NRBC Flagged by Analyzer 0 % (0-5); Neutrophil # 20.75 X10^3/uL (2.7-7.7); Neutrophil % 87.3 % (47-70); POSITIVE DIFFERENTIAL YES; Platelet Count 131 K/mm3 (150-450); RBC Distribution Width CV 13.2 % (11.6-14.6); RBC Distribution Width SD 45.5 fl (35.1-43.9); Red Blood Count 3.21 M/mm3 (4.6-6.2); White Blood Count 23.8 K/mm3 (4.4-11.0)
[2020-09-28] MEDS: Propofol 10MG/Ml 1,000 MG/100 ML Bottle 5.1 MG CONT INF (05:47)
[2020-09-28] MEDS: 0.9% Saline Lock 10 ML Syringe IV (05:47)
[2020-09-28 05:49] LABS: Differential Indicated SCAN CRITERIA MET
[2020-09-28 06:02] LABS: ALB/GLOB Ratio 1.1 RATIO (0.9-2.4); AST(SGOT) 173 U/L (15-37); Alanine Aminotransfer ALT/SGPT 183 U/L (16-61); Albumin, Serum 2.7 g/dL (3.2-5.0); Alkaline Phosphatase 50 U/L (45-117); Anion Gap 7 (5-15); BUN 39 mg/dL (7-18); Calcium,Total 6.6 mg/dL (8.5-10.1); Chloride 118 mmol/L (98-107); Creatinine, Serum 1.86 mg/dL (0.70-1.30); EST Glomerular Filtration Rate 38 mL/min (>60); Est Glom Filt Rate - Afr Amer 46 mL/min (>60); Estimated Creatinine Clearance 34.32 ml/min; Globulin 2.5 g/dL (2.2-4.2); Glucose 127 mg/dL (74-106); Magnesium 1.8 mg/dL (1.6-2.6); Potassium 4.6 mmol/L (3.5-5.1); Protein, Total 5.2 g/dL (6.4-8.2); Sodium Level 146 mmol/L (136-145)
[2020-09-28 06:34] LABS: Differential Comment SCANNED
--- NOTE | 2020-09-28 06:35 | PN.CC_ITS ---
Assessment & Plan Assessment/Plan (1) Cardiopulmonary arrest with successful resuscitation: (2) Pneumothorax: (3) Atherosclerotic heart disease of [place] coronary artery without angina pectoris: QUALIFIERS: [place] vs. transplanted heart: [place] heart Qualified Code(s): I25.10 - Atherosclerotic heart disease of [place] coronary artery without angina pectoris (4) Ischemic cardiomyopathy: PLAN: RECOMMENDATIONS: 1. Minimize sedation and fentanyl 2. Continue neurochecks 3. Repeat H&H every 6 hours. 4. Continue chest tube to suction 5. Wean FiO2 as tolerated. 6. Await goals of therapy IMPRESSIONS: 1. Cardiopulmonary arrest of unclear etiology Very little information noted at this time. Patient is currently off Levophed. Patient's oxygenation appears to be improving following placement of the chest tube. Patient does appear to have intact cardiopulmonary status at this time. No significant cardiac arrhythmias have been noted. 2. Acute hypoxic respiratory failure Unclear etiology. Patient does have increased infiltrates on the left. It is unclear if patient has an aspiration event. Patient did have a significant right-sided pneumothorax on presentation to the ER and appears to have some rib fractures, resulting in a right flail chest. Patient reportedly has been a smoker in the past, so an element of COPD cannot be excluded. Patient is on analgesia, but will likely hold on spontaneous breathing and awakening trials given mental status 3. Right pneumothorax secondary to probable rib fractures following CPR Patient with initial blood return on chest tube placement. However, patient does not appear to have consistent output. This would be consistent with rib fractures leading to a pneumothorax. Continue chest tube on suction. Surgery is following. Hemoglobin did drop initially, but appears to have stabilized 4. Septic versus cardiogenic shock Lack of history is significant. Patient has a history of ischemic cardiomyopathy. Unclear how long patient was down prior to EMS arrival. Patient was in asystole, but was able to get ROSC. Unfortunately, TTM is not available. Could treat patient with empiric antibiotics, but low clinical suspicion for infectious etiology given lack of fever and leukocytosis. 5. Probable anoxic injury Patient appears to have myoclonic jerking at this time. Patient has a GCS of 4. Unclear if this is related to acute event versus anoxic injury. CT on presentation showed only chronic involutional changes. Patient appears to have a significant amount of downtime of at least 15 minutes. Patient still has some respirations above the ventilator and cough reflex, so hold on any brain protocol 6. Genital herpes/reported polysubstance abuse/history of ischemic cardiomyopathy/advanced age/poor history Complicates care, management, recovery and prognosis. Patient would be at risk for STDs, but it is unclear that this would lead to presentation. Patient also has a history of ischemic cardiomyopathy, but unfortunately subcutaneous emphysema is not allowing for an echocardiogram. Patient sister has been notified of patient's condition. Patient appears to be estranged from multiple family members. Social work reports patient does have a living will on record. TIME: 34 minutes of critical care time spent addressing patient's cardiopulmonary arrest, hypoxic respiratory failure, pneumothorax, shock, anoxic brain injury, review of all data and collaboration with care team (5:30 AM to 6:30 AM) Subjective Subjective Patient has done okay overnight. Patient is no longer on Levophed, but has been on propofol and fentanyl. Patient continues to over breathe the vent and does have a cough, but no other purposeful movements have been noted. Objective Data Objective Data Vital Signs: Vital Signs Temp Pulse Resp BP Pulse Ox 36.9 C 94 18 106/66 96 09/28/20 04:00 09/28/20 05:35 09/28/20 05:35 09/28/20 04:00 09/28/20 05:35 Oxygen Delivery Method Mechanical Ventilator Weight: 84.9 kg Body Mass Index (BMI) 1.3 Intake & Output: Intake and Output for Last 24 Hours 09/26/20 09/27/20 09/28/20 23:59 23:59 23:59 Intake Total 4957.00 / 5253.77 785.74 / 785.74 Output Total 1390 / 1610 395 / 395 Balance 3567.00 / 3643.77 390.74 / 390.74 Medical Nutrition Assessment Dietitian: Nutrition Therapy Diagnosis Start: 09/27/20 10:23 Freq: Status: Active Protocol: Document 09/27/20 10:39 JACLYN (Rec: 09/27/20 10:39 JACLYN [id number]) Nutrition Malnutrition Evidence of Malnutrition Exists No Intake Problem Inadequate Oral Intake Etiology related to cardiopulmonary arrest Signs/Symptoms as evidenced by NPO status and pt sedated, on vent w/ OG in place Status Active Problem Recommendation Dietitian Recommendations/Changes Will monitor need for po diet vs nutrition support pending pt progress and prognosis. Lab / Micro Data Result Diagrams: 09/28/20 05:35 09/28/20 05:35 Labs: Laboratory Results - last 24 hr 09/27/20 01:30: Diff Path Review Reviewed 09/27/20 04:55: COVID-19 (MARIA D) Cancelled 09/27/20 04:55: COVID-19 (MARIA D) Not Detected 09/27/20 05:51: Lactic Acid 3.9 H* 09/27/20 07:10: Magnesium 2.1, Troponin I High Sens 1256.0 H* 09/27/20 07:10: Phosphorus 4.1 09/27/20 07:10: Total Creatine Kinase 992 H 09/27/20 10:20: Troponin I High Sens 1661.9 H*, Triglycerides 76 09/27/20 12:00: Hgb 11.0 L, Hct 34.9 L 09/27/20 12:00: Sodium 146 H, Potassium 4.6, Chloride 117 H, Carbon Dioxide 19.0 L, Anion Gap 10, BUN 30 H, Creatinine 1.96 H, Estim Creat Clear Calc 32.56, Est GFR (MDRD) Af Amer 43 L, Est GFR (MDRD) Non-Af 36 L, BUN/Creatinine Ratio 15.3, Glucose 148 H, Calcium 7.5 L, Phosphorus 1.5 L, Magnesium 1.9 09/27/20 13:30: Troponin I High Sens 1725.1 H* 09/27/20 18:00: Hgb 10.4 L, Hct 32.9 L 09/27/20 23:35: Hgb 9.7 L, Hct 30.3 L 09/28/20 05:35: WBC 23.8 H, RBC 3.21 L, Hgb 9.8 L, Hct 30.3 L, MCV 94.4 H D, MCH 30.5, MCHC 32.3 D, RDW Std Deviation 45.5 H, RDW Coeff of Rafael 13.2, Plt Count 131 L, MPV 9.5, Immature Gran % (Auto) 1.100 H, Neut % (Auto) 87.3 H, Lymph % (Auto) 4.7 L, [place] % (Auto) 6.3, Eos % (Auto) 0.4, Baso % (Auto) 0.2, Absolute N euts (auto) 20.8 H, Absolute Lymphs (auto) 1.11, Nucleated RBC % 0, Differential Comment SCANNED 09/28/20 05:35: Sodium 146 H, Potassium 4.6, Chloride 118 H, Carbon Dioxide 21.0, Anion Gap 7, BUN 39 H, Creatinine 1.86 H, Estim Creat Clear Calc 34.32, Est GFR (MDRD) Af Amer 46 L, Est GFR (MDRD) Non-Af 38 L, BUN/Creatinine Ratio 21.0 H, Glucose 127 H, Calcium 6.6 L, Magnesium 1.8, Total Bilirubin 1.00, AST 173 H, ALT 183 H, Alkaline Phosphatase 50, Total Protein 5.2 L, Albumin 2.7 L, Globulin 2.5, Albumin/Globulin Ratio 1.1 Micro: Microbiology 09/27/20 07:12 Sputum, Expectorated/Coughed Gram Stain - Final 09/27/20 02:30 Urine Catheter - Bruno Legionella Antigen - Final 09/27/20 02:30 Urine Catheter - Bruno Streptococcus pneumoniae Antigen (M - Final 09/27/20 02:30 Mucosa - Nose SARS-CoV-2 Antigen (Rapid) - Final ABG Data ABG results: ABG 09/27/20 08:07 Specimen Type ART Sample Site L Radial pH 7.23 L Bicarbonate Actual 18.9 L Total CO2 20 Base Excess -9 L O2 Saturation 97 O2 % 70 ABG pCO2 45.1 H ABG pO2 105 H Rene Test Positive Respiration Rate 12 O2 Delivery Device Adult Vent Vent Mode AC Tidal Volume 450 POC PEEP 5 Radiography Diagnostic Testing: Radiology Impression Chest X-Ray 09/27/20 06:41 IMPRESSION: Extensive bilateral and cervical thoracic subcutaneous base emphysema with infiltrates at the right lung base and in the left lung as described. I cannot rule out a small pneumothorax in the right hemithorax. Electronically Signed: Jorge Patel MD at 8:19 EDT , Service support , Chest X-Ray 09/27/20 07:27 IMPRESSION: Status post insertion of a chest tube in the right hemithorax with the tip in the medial aspect of the right upper lobe. The remainder of the examination Electronically Signed: Jorge Patel MD at 8:25 EDT , Service support , Physical Exam Const General Appearance: appears older than stated age, intubated and patient mechanically ventilated Orientation / Consciousness: obtunded HEENT normocephalic and moist oral mucous membranes Eyes PERRL and EOMs intact bilaterally Neck full ROM and no lymphadenopathy Chest Chest Narrative: Portion of flail chest noted on the right Chest: chest tube right Resp no use of accessory muscles Resp Narrative: SubQ emphysema much improved following chest tube placement. Still with significant crepitus throughout head, chest, back and bilateral upper extremities. Auscultation: rhonchi throughout; Negative for rales or wheezes Percussion: Negative for dullness Cardio regular rhythm, S1 normal heart sound, S2 normal heart sound, no murmurs, no rub and no gallops Rate: tachycardic GI normal to inspection, nondistended, normoactive bowel sounds no CVA tenderness Narrative: Herpetic lesions noted of the penis and scrotum Extremity no clubbing, cyanosis or edema Skin no rashes or lesions noted Skin Narrative: Bruising noted on the inferior lateral aspect of the left mandible. Still with palpable crepitus Neuro Neuro Narrative: Little to no spontaneous movement noted. Some myoclonus [place] Coma Scale: document GCS findings None Extensor Response None 4 Psych Appearance: unkempt, disheveled and intubated Charges/Coding Procedures Hospitalists Procedures: 08451 Critial Care 1st Hr
--- NOTE | 2020-09-28 08:01 | PN.HOSP_ITS ---
Subjective Subjective Patient was seen and examined. No acute events overnight. He remains unresponsive. On minimal ventilator settings. Chest tube in place. Patient was said to have myoclonic jerks yesterday. Noted later in the day to have flail chest with breathing Objective Data Objective Data Vital Signs: Vital Signs Temp Pulse Resp BP Pulse Ox 98.3 F 89 17 120/78 98 09/28/20 06:00 09/28/20 07:18 09/28/20 07:18 09/28/20 06:00 09/28/20 07:18 Oxygen Delivery Method Mechanical Ventilator Weight: 85.3 kg Body Mass Index (BMI) 1.3 Intake & Output: Intake and Output for Last 24 Hours 09/26/20 09/27/20 09/28/20 23:59 23:59 23:59 Intake Total 4957.00 / 5253.77 1140.74 / 1140.74 Output Total 1390 / 1610 605 / 605 Balance 3567.00 / 3643.77 535.74 / 535.74 Medical Nutrition Assessment Dietitian: Nutrition Therapy Diagnosis Start: 09/27/20 10:23 Freq: Status: Active Protocol: Document 09/27/20 10:39 SLA (Rec: 09/27/20 10:39 [facility] [id number]) Nutrition Malnutrition Evidence of Malnutrition Exists No Intake Problem Inadequate Oral Intake Etiology related to cardiopulmonary arrest Signs/Symptoms as evidenced by NPO status and pt sedated, on vent w/ OG in place Status Active Problem Recommendation Dietitian Recommendations/Changes Will monitor need for po diet vs nutrition support pending pt progress and prognosis. Lab / Micro Data Result Diagrams: 09/28/20 05:35 09/28/20 05:35 Labs: Laboratory Results - last 24 hr 09/27/20 01:30: Diff Path Review Reviewed 09/27/20 04:55: COVID-19 (MARIA D) Cancelled 09/27/20 04:55: COVID-19 (MARIA D) Not Detected 09/27/20 07:10: Total Creatine Kinase 992 H 09/27/20 10:20: Troponin I High Sens 1661.9 H*, Triglycerides 76 09/27/20 12:00: Hgb 11.0 L, Hct 34.9 L 09/27/20 12:00: Sodium 146 H, Potassium 4.6, Chloride 117 H, Carbon Dioxide 19.0 L, Anion Gap 10, BUN 30 H, Creatinine 1.96 H, Estim Creat Clear Calc 32.56, Est GFR (MDRD) Af Amer 43 L, Est GFR (MDRD) Non-Af 36 L, BUN/Creatinine Ratio 15.3, Glucose 148 H, Calcium 7.5 L, Phosphorus 1.5 L, Magnesium 1.9 09/27/20 13:30: Troponin I High Sens 1725.1 H* 09/27/20 18:00: Hgb 10.4 L, Hct 32.9 L 09/27/20 23:35: Hgb 9.7 L, Hct 30.3 L 09/28/20 05:35: WBC 23.8 H, RBC 3.21 L, Hgb 9.8 L, Hct 30.3 L, MCV 94.4 H D, MCH 30.5, MCHC 32.3 D, RDW Std Deviation 45.5 H, RDW Coeff of Rafael 13.2, Plt Count 131 L, MPV 9.5, Immature Gran % (Auto) 1.100 H, Neut % (Auto) 87.3 H, Lymph % (Auto) 4.7 L, [place] % (Auto) 6.3, Eos % (Auto) 0.4, Baso % (Auto) 0.2, Absolute Neuts (auto) 20.8 H, Absolute Lymphs (auto) 1.11, Nucleated RBC % 0, Differential Comment SCANNED 09/28/20 05:35: Sodium 146 H, Potassium 4.6, Chloride 118 H, Carbon Dioxide 21.0, Anion Gap 7, BUN 39 H, Creatinine 1.86 H, Estim Creat Clear Calc 34.32, Est GFR (MDRD) Af Amer 46 L, Est GFR (MDRD) Non-Af 38 L, BUN/Creatinine Ratio 21.0 H, Glucose 127 H, Calcium 6.6 L, Magnesium 1.8, Total Bilirubin 1.00, AST 173 H, ALT 183 H, Alkaline Phosphatase 50, Total Protein 5.2 L, Albumin 2.7 L, Globulin 2.5, Albumin/Globulin Ratio 1.1 Micro: Microbiology 09/27/20 07:12 Sputum, Expectorated/Coughed Gram Stain - Final 09/27/20 02:30 Urine Catheter - Burno Legionella Antigen - Final 09/27/20 02:30 Urine Catheter - Bruno Streptococcus pneumoniae Antigen (M - Final 09/27/20 02:30 Mucosa - Nose SARS-CoV-2 Antigen (Rapid) - Final ABG Data ABG results: ABG 09/27/20 08:07 Specimen Type ART Sample Site L Radial pH 7.23 L Bicarbonate Actual 18.9 L Total CO2 20 Base Excess -9 L O2 Saturation 97 O2 % 70 ABG pCO2 45.1 H ABG pO2 105 H Rene Test Positive Respiration Rate 12 O2 Delivery Device Adult Vent Vent Mode AC Tidal Volume 450 POC PEEP 5 Radiography Diagnostic Testing: Radiology Impression Chest X-Ray 09/27/20 06:41 IMPRESSION: Extensive bilateral and cervical thoracic subcutaneous base emphysema with infiltrates at the right lung base and in the left lung as described. I cannot rule out a small pneumothorax in the right hemithorax. Electronically Signed: Jorge Patel MD at 8:19 EDT , Service support , Chest X-Ray 09/27/20 07:27 IMPRESSION: Status post insertion of a chest tube in the right hemithorax with the tip in the medial aspect of the right upper lobe. The remainder of the examination Electronically Signed: Jorge Patel MD at 8:25 EDT , Service support , Physical Exam Narrative Physical exam: General: Sedated, intubated, on mechanical ventilator, extensive subcutaneous emphysema of the face, cervical region, thoracic region HEENT: Endotracheal tube has bloody aspirate, bruise over the left jaw Oral:Dry mucosa Neck: Supple Lungs: Diminished Cardiovascular: HS I+II, regular, no murmurs Abdomen: Bowel Sounds Present, Soft, Non Tender Extremities: Bilateral leg edema, trace to +1 Assessment & Plan Assessment/Plan (1) Pneumothorax: (2) Septic shock: (3) Cardiopulmonary arrest with successful resuscitation: (4) GI bleed: QUALIFIERS: GI bleed type/associated pathology: anorectal hemorrhage Qualified Code(s): K62.5 - Hemorrhage of anus and rectum (5) Presence of stent in coronary artery: (6) Ischemic cardiomyopathy: PLAN: 1. 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 Status post cardiopulmonary arrest, unclear etiology Patient remains minimally responsive; still has brainstem function Will re-evaluate in 24 hours 3. Acute hypoxic respiratory failure, likely secondary to #1 and 2 status post intubation and mechanical ventilator Continue on current minimal ventilatory settings; on minimal sedation with propofol and fentanyl 4. Septic versus cardiogenic shock, unclear etiology, Chest x-ray shows infiltrates in the right lung base as well as left upper lobe UA is mildly suggestive of UTI WBC count is normal. Lactic acid is 3.9 Continue on IV Zosyn and vancomycin, follow-up on blood and urine cultures 5. Hypokalemia, resolved 6. Hypomagnesemia/Hypophosphatemia, Mg is 1.8, Phos 1.5 Will replace, recheck in am 7. CKD stage IIIa, creatinine slightly elevated at 1.81, continue to monitor 8. Rest of his chronic medical condition -CAD status post stent, history of is chemic cardiomyopathy, appears to be stable for now 2D echo in 2019 shows an EF of 45% Urine tox was negative Charges/Coding Visit Charges Inpatient E&M: 55191 Subs Hosp L3
[2020-09-28] MEDS: CHLORHEXIDINE GLUC 2% CLOTH 1 EACH TOWELETTE TOPICAL (09:09)
[2020-09-28] MEDS: Chlorhexidine 15 ML PO ×2 (09:09→21:26)
[2020-09-28] MEDS: 0.9% Normal Saline 1,000 ML 100 ML IV (10:19)
[2020-09-28] MEDS: 0.45% Normal Saline 1,000 ML 75 ML IV (12:29)
[2020-09-28 12:47] LABS: Hematocrit 31.1 % (40-54); Hemoglobin 9.9 g/dL (13.0-16.5)
[2020-09-28] MEDS: Propofol 10MG/Ml 1,000 MG/100 ML Bottle 10.2 MG CONT INF (23:00)
[2020-09-29] VITALS (24 sets, daily range): BP systolic 109–163; BP diastolic 75–103; PULSE 90–112; RESP 12–19; TEMP 36.1–38.3; O2SAT 97–100
[2020-09-29 03:53] LABS: Absolute Lymphocyte Count 0.94 X10^3/uL (0.83-4.51); Absolute Neutrophil Count 15.7 X10^3/uL (2.0-7.7); Basophil# 0.01 X10^3/uL; Basophil% 0.1 % (0-1); Eosinophil# 0.03 X10^3/uL; Eosinophils% 0.2 % (0-5); Hematocrit 28.8 % (40-54); Hemoglobin 9.1 g/dL (13.0-16.5); Lymphocyte # 0.94 X10^3/ul (0.83-4.51); Lymphocyte % 5.2 % (19-41); Mean Corp Hgb Conc 31.6 g/dL (32-36); Mean Corpuscular Hgb 30.3 pg (27.0-32.0); Mean Platelet Vol. 9.8 fl (6.2-12.0); Monocyte# 1.13 X10^3/uL; Monocyte% 6.3 % (0-10); NRBC Flagged by Analyzer 0 % (0-5); Neutrophil # 15.72 X10^3/uL (2.7-7.7); Neutrophil % 87.2 % (47-70); Platelet Count 118 K/mm3 (150-450); RBC Distribution Width CV 13.4 % (11.6-14.6); RBC Distribution Width SD 47.3 fl (35.1-43.9)
[2020-09-29 04:13] LABS: Anion Gap 5 (5-15); BUN 37 mg/dL (7-18); BUN/Creat Ratio 22.6 RATIO (10-20); Calcium,Total 7.1 mg/dL (8.5-10.1); Chloride 117 mmol/L (98-107); Creatinine, Serum 1.64 mg/dL (0.70-1.30); EST Glomerular Filtration Rate 44 mL/min (>60); Est Glom Filt Rate - Afr Amer 53 mL/min (>60); Estimated Creatinine Clearance 38.92 ml/min; Glucose 99 mg/dL (74-106); Magnesium 2.5 mg/dL (1.6-2.6); Potassium 4.3 mmol/L (3.5-5.1); Sodium Level 145 mmol/L (136-145)
[2020-09-29 04:21] LABS: Vancomycin, Trough Level 9.4 ug/mL (5.0-15.0)
--- NOTE | 2020-09-29 04:37 | PCM.RX.CS ---
Consult Pharmacy has been consulted to manage selected antiobiotic: Vancomycin Type of Consult: Follow-up Suspected Infection: Sepsis Prior Doses of Antibiotics Received/Current Regimen: Medications Vancomycin HCl 2,000 mg/ (Sodium Chloride) 540 mls @ 250 mls/hr IV Q24H LICHA Discontinued Medications Vancomycin HCl 1,250 mg/ (Sodium Chloride) 275 mls @ 167 mls/hr IV Q24H LICHA Last Admin: 09/28/20 05:40 Dose: Infused Labs: Sodium 145 mmol/L (136-145) 09/29/20 03:45 Potassium 4.3 mmol/L (3.5-5.1) 09/29/20 03:45 Chloride 117 mmol/L (98-107) H 09/29/20 03:45 Carbon Dioxide 23.0 mmol/L (21.0-32.0) 09/29/20 03:45 Anion Gap 5 (5-15) 09/29/20 03:45 BUN 37 mg/dL (7-18) H 09/29/20 03:45 Creatinine 1.64 mg/dL (0.70-1.30) H 09/29/20 03:45 Est GFR (MDRD) Af Amer 53 mL/min (>60) L 09/29/20 03:45 Est GFR (MDRD) Non-Af 44 mL/min (>60) L 09/29/20 03:45 BUN/Creatinine Ratio 22.6 RATIO (10-20) H 09/29/20 03:45 Glucose 99 mg/dL (74-106) 09/29/20 03:45 Vancomycin Trough 9.4 ug/mL (5.0-15.0) 09/29/20 03:45 Microbiology: Microbiology 09/27/20 07:12 Sputum, Expectorated/Coughed Gram Stain - Final 09/27/20 07:12 Sputum, Expectorated/Coughed Respiratory Culture - Preliminary Appears to be normal respiratory lynne. Further studies to follow. 09/27/20 02:30 Urine, Catheterized Urine Culture - Preliminary Culture exhibits no growth. 09/27/20 02:30 Urine Catheter - Bruno Legionella Antigen - Final 09/27/20 02:30 Urine Catheter - Bruno Streptococcus pneumoniae Antigen (M - Final 09/27/20 02:30 Mucosa - Nose SARS-CoV-2 Antigen (Rapid) - Final Weight used for dosin.7 kg Estimated Creatinine Clearance: 39 Goal Trough: 15-20 mcg/mL Pharmacy Plan for Drug Dosing: Vancomycin trough level of 9.4 was below the target range of 15-20. Will increase dose to 2000mg q24h and re-draw trough prior to 3rd dose of this new regimen. Pharmacy Service will continue to monitor and adjust dosing as required. Follow-Up Labs: Trough Vancomycin Labs to be done on [date and time ordered]: 10/01/20 @4649
[2020-09-29] MEDS: CHLORHEXIDINE GLUC 2% CLOTH 1 EACH TOWELETTE TOPICAL (05:11)
[2020-09-29] MEDS: TITRATION PARAMETER CHANGE 1 EACH IV (05:11)
[2020-09-29] MEDS: 0.9% Saline Lock 10 ML Syringe IV (05:11)
--- NOTE | 2020-09-29 06:06 | RAD_ITS ---
INDICATION: SQ emphysema EXAMINATION/TECHNIQUE: X-RAY - XR Chest 1 View COMPARISON: Multiple radiographs of the chest, most recent dated 09/27/2020 FINDINGS: LINES/DEVICES: Redemonstrated is an endotracheal tube traversing the midline with the tip approximately 4.2 cm above the lili. Again noted is an enteric tube with the tip and side port well below the diaphragm. Again noted is a right-sided large-bore thoracostomy tube. The side port overlies the medial aspect of the right lower lung. LUNGS: As compared with prior imaging, there is been development of left basilar airspace disease with blunting of the left costophrenic angle. This may represent pleural effusion versus developing infectious process or possible atelectasis. The right lung demonstrates basilar airspace disease, without focal airspace consolidation. No large pneumothorax is seen in the lungs. MEDIASTINUM AND CARDIOVASCULAR STRUCTURES: The cardiac silhouette and pulmonary vasculature are stable. The airway is midline. The aorta demonstrates atherosclerotic calcification. BONES AND SOFT TISSUES: No obvious acute fracture is seen. Redemonstrated is severe diffuse subcutaneous emphysema. RAD/Chest 1 View (Portable) IMPRESSION: 1. Redemonstration of right-sided large bore thoracostomy tube not significantly changed in position in the interval. Stable positioning of enteric tube and endotracheal tube. 2. Redemonstration of severe diffuse subcutaneous emphysema. 3. Interval development of left basilar airspace opacity with blunting of the costophrenic angle. This is nonspecific and may represent pleural effusion versus developing infectious process or possibly atelectasis. 4. No large pneumothorax is seen. Electronically Signed: Winston Wasserman MD at 11:30 EDT Tel , Service support ,
--- NOTE | 2020-09-29 06:13 | PN.CC_ITS ---
Assessment & Plan Assessment/Plan (1) Cardiopulmonary arrest with successful resuscitation: (2) Pneumothorax: (3) Atherosclerotic heart disease of [place] coronary artery without angina pectoris: QUALIFIERS: [place] vs. transplanted heart: [place] heart Qualified Code(s): I25.10 - Atherosclerotic heart disease of [place] coronary artery without angina pectoris (4) Ischemic cardiomyopathy: PLAN: RECOMMENDATIONS: 1. Minimize sedation and fentanyl 2. Continue neurochecks 3. Obtain chest x-ray 4. Continue chest tube to suction 5. Wean FiO2 as tolerated. 6. Palliative extubation. Patient meets criteria for living will in my opinion IMPRESSIONS: 1. Cardiopulmonary arrest of unclear etiology Very little information noted at this time. Patient is currently off Levophed. Patient's oxygenation appears to be improving following placement of the chest tube. Patient does appear to have intact cardiopulmonary status at this time. No significant cardiac arrhythmias have been noted. 2. Acute hypoxic respiratory failure Unclear etiology. Patient does have increased infiltrates on the left. It is unclear if patient has an aspiration event. Patient did have a significant right-sided pneumothorax on presentation to the ER and appears to have some rib fractures, resulting in a right flail chest. Patient reportedly has been a smoker in the past, so an element of COPD cannot be excluded. Patien t still with spontaneous respirations. Low clinical suspicion for progression of brain . Chest x-ray has been ordered to see if patient has not developed a left-sided pneumothorax. 3. Right pneumothorax secondary to probable rib fractures following CPR Patient with initial blood return on chest tube placement. However, patient does not appear to have consistent output. This would be consistent with rib fractures leading to a pneumothorax. Continue chest tube on suction. Surgery is following. Hemoglobin did drop initially, but appears to have stabilized 4. Septic versus cardiogenic shock Result. Lack of history is significant. Patient has a history of ischemic cardiomyopathy. Unclear how long patient was down prior to EMS arrival. Patient was in asystole, but was able to get ROSC. Unfortunately, TTM is not available. Could treat patient with empiric antibiotics, but low clinical suspicion for infectious etiology given lack of fever and leukocytosis. 5. Probable anoxic injury Patient appears to have myoclonic jerking at this time. Patient has a GCS of 3. Unclear if this is related to acute event versus anoxic injury. CT on presentation showed only chronic involutional changes. Patient appears to have a significant amount of downtime of at least 15 minutes. Patient still has some respirations above the ventilator and cough reflex, so hold on any brain protocol. In my opinion, patient has met criteria dictated in his living well. Recommend palliative measures once family can be gathered. 6. Genital herpes/reported polysubstance abuse/history of ischemic cardiomyopathy/advanced age/poor history Complicates care, management, recovery and prognosis. Patient would be at risk for STDs, but it is unclear that this would lead to presentation. Patient also has a history of ischemic cardiomyopathy, but unfortunately subcutaneous emphysema is not allowing for an echocardiogram. Patient sister has been notified of patient's condition. Patient appears to be estranged from multiple family members. Social work reports patient does have a living will on record. TIME: 32 minutes of critical care time spent addressing patient's cardiopulmonary arrest, hypoxic respiratory failure, pneumothorax, shock, anoxic brain injury, review of all data and collaboration with care team (5:30 AM to 6:15 AM) Subjective Subjective Patient did okay overnight. Patient with increased subcutaneous emphysema on the left side of his face, so chest x-ray was ordered this morning. Patient continues to breathe over the vent and have a cough reflex. However, no improvement has been noted in responsiveness. Objective Data Objective Data Vital Signs: Vital Signs Temp Pulse Resp BP Pulse Ox 36.6 C 98 18 143/103 H 97 09/29/20 06:00 09/29/20 06:00 09/29/20 06:00 09/29/20 06:00 09/29/20 06:00 Oxygen Delivery Method Mechanical Ventilator Weight: 86.7 kg Body Mass Index (BMI) 1.3 Intake & Output: Intake and Output for Last 24 Hours 09/27/20 09/28/20 09/29/20 23:59 23:59 23:59 Intake Total 4957.00 / 5253.77 2236.74 / 2259.44 1223.95 / 1223.95 Output Total 1390 / 1610 2110 / 2110 290 / 290 Balance 3567.00 / 3643.77 126.74 / 149.44 933.95 / 933.95 Medical Nutrition Assessment Dietitian: Nutrition Therapy Diagnosis Start: 09/27/20 10:23 Freq: Status: Active Protocol: Document 09/28/20 09:26 BP (Rec: 09/28/20 09:26 BP [id number]) Nutrition Malnutrition Evidence of Malnutrition Exists No Intake Problem Inadequate Oral Intake Etiology related to cardiopulmonary arrest Signs/Symptoms as evidenced by NPO status and pt sedated, on vent w/ OG in place Status Active Problem Recommendation Dietitian Recommendations/Changes Will monitor need for po diet vs nutrition support pending pt progress and prognosis. Lab / Micro Data Result Diagrams: 09/29/20 03:45 09/29/20 03:45 Labs: Laboratory Results - last 24 hr 09/28/20 05:35: Differential Comment SCANNED 09/28/20 11:50: Hgb 9.9 L, Hct 31.1 L 09/29/20 03:45: Vancomycin Trough 9.4 09/29/20 03:45: WBC 18.0 H, RBC 3.00 L, Hgb 9.1 L, Hct 28.8 L, MCV 96.0 H, MCH 30.3, MCHC 31.6 L, RDW Std Deviation 47.3 H, RDW Coeff of Rafael 13.4, Plt Count 118 L, MPV 9.8, Immature Gran % (Auto) 1.000 H, Neut % (Auto) 87.2 H, Lymph % (Auto) 5.2 L, Wheeler % (Auto) 6.3, Eos % (Auto) 0.2, Baso % (Auto) 0.1, Absolute Neuts (auto) 15.7 H, Absolute Lymphs (auto) 0.94, Nucleated RBC % 0 09/29/20 03:45: Sodium 145, Potassium 4.3, Chloride 117 H, Carbon Dioxide 23.0, Anion Gap 5, BUN 37 H, Creatinine 1.64 H, Estim Creat Clear Calc 38.92, Est GFR (MDRD) Af Amer 53 L, Est GFR (MDRD) Non-Af 44 L, BUN/Creatinine Ratio 22.6 H, Glucose 99, Calcium 7.1 L, Magnesium 2.5 Micro: Microbiology 09/27/20 07:12 Sputum, Expectorated/Coughed Gram Stain - Final 09/27/20 07:12 Sputum, Expectorated/Coughed Respiratory Culture - Preliminary Appears to be normal respiratory lynne. Further studies to follow. 09/27/20 02:30 Urine, Catheterized Urine Culture - Preliminary Culture exhibits no growth. 09/27/20 02:30 Urine Catheter - Bruno Legionella Antigen - Final 09/27/20 02:30 Urine Catheter - Bruno Streptococcus pneumoniae Antigen (M - Final 09/27/20 02:30 Mucosa - Nose SARS-CoV-2 Antigen (Rapid) - Final Physical Exam Const General Appearance: appears older than stated age, intubated and patient mechanically ventilated Orientation / Consciousness: obtunded HEENT normocephalic and moist oral mucous membranes Eyes PERRL and EOMs intact bilaterally Neck full ROM and no lymphadenopathy Chest inspection of chest normal Chest Narrative: Portion of flail chest noted on the right Chest: chest tube right Resp no use of accessory muscles Resp Narrative: SubQ emphysema much improved following chest tube placement. Still with significant crepitus throughout head, chest, back and bilateral upper extremities. Increased subcu emphysema on left side of the face compared to yesterday Auscultation: rhonchi throughout; Negative for rales or wheezes Percussion: Negative for dullness Cardio regular rhythm, S1 normal heart sound, S2 normal heart sound, no murmurs, no rub and no gallops Rate: tachycardic GI normal to inspection, nondistended, normoactive bowel sounds no CVA tenderness Narrative: Herpetic lesions noted of the penis and scrotum Extremity no clubbing, cyanosis or edema Skin no rashes or lesions noted Skin Narrative: Bruising noted on the inferior lateral aspect of the left mandible. Still with palpable crepitus Neuro Neuro Narrative: Little to no spontaneous movement noted. Some myoclonus Regino Coma Scale: document GCS findings None None None 3 Psych Appearance: unkempt, disheveled and intubated Charges/Coding Procedures Hospitalists Procedures: 73544 Critial Care 1st Hr
--- NOTE | 2020-09-29 06:58 | NURSING ---
Propofol turned back on at 20mcg and fentanyl at 100 mcg, pt returned to AC/VC vent settings.
[2020-09-29] MEDS: Chlorhexidine 15 ML PO (08:17)
--- NOTE | 2020-09-29 08:37 | NURSING ---
Dr Riddle at bedside to assess patient. ordered to hold all sedating medication at this time. Dr Riddle will return to evaluate patient when sedation has wore off to assess neuro status.
--- NOTE | 2020-09-29 09:44 | PCM.PN.HOSP ---
Subjective Subjective Patient was seen and examined. No acute events. He is off pressors; he passed his spontaneous awakening trial and failed his SBT. Patient has a living will states that he does not want to be in a persistent vegetative state. Objective Data Objective Data Vital Signs: Vital Signs Temp Pulse Resp BP Pulse Ox 98.6 F 96 18 146/91 H 100 09/29/20 07:00 09/29/20 09:00 09/29/20 09:00 09/29/20 09:00 09/29/20 09:00 Oxygen Delivery Method Mechanical Ventilator Weight: 86.7 kg Body Mass Index (BMI) 1.3 Intake & Output: Intake and Output for Last 24 Hours 09/27/20 09/28/20 09/29/20 23:59 23:59 23:59 Intake Total 4957.00 / 5253.77 2236.74 / 2259.44 1920.13 / 1920.13 Output Total 1390 / 1610 2110 / 2110 465 / 465 Balance 3567.00 / 3643.77 126.74 / 149.44 1455.13 / 1455.13 Medical Nutrition Assessment Dietitian: Nutrition Therapy Diagnosis Start: 09/27/20 10:23 Freq: Status: Active Protocol: Document 09/28/20 09:26 BP (Rec: 09/28/20 09:26 BP [id number]) Nutrition Malnutrition Evidence of Malnutrition Exists No Intake Problem Inadequate Oral Intake Etiology related to cardiopulmonary arrest Signs/Symptoms as evidenced by NPO status and pt sedated, on vent w/ OG in place Status Active Problem Recommendation Dietitian Recommendations/Changes Will monitor need for po diet vs nutrition support pending pt progress and prognosis. Lab / Micro Data Result Diagrams: 09/29/20 03:45 09/29/20 03:45 Labs: Laboratory Results - last 24 hr 09/28/20 11:50: Hgb 9.9 L, Hct 31.1 L 09/29/20 03:45: Vancomycin Trough 9.4 09/29/20 03:45: WBC 18.0 H, RBC 3.00 L, Hgb 9.1 L, Hct 28.8 L, MCV 96.0 H, MCH 30.3, MCHC 31.6 L, RDW Std Deviation 47.3 H, RDW Coeff of Rafael 13.4, Plt Count 118 L, MPV 9.8, Immature Gran % (Auto) 1.000 H, Neut % (Auto) 87.2 H, Lymph % (Auto) 5.2 L, Swift % (Auto) 6.3, Eos % (Auto) 0.2, Baso % (Auto) 0.1, Absolute Neuts (auto) 15.7 H, Absolute Lymphs (auto) 0.94, Nucleated RBC % 0 09/29/20 03:45: Sodium 145, Potassium 4.3, Chloride 117 H, Carbon Dioxide 23.0, Anion Gap 5, BUN 37 H, Creatinine 1.64 H, Estim Creat Clear Calc 38.92, Est GFR (MDRD) Af Amer 53 L, Est GFR (MDRD) Non-Af 44 L, BUN/Creatinine Ratio 22.6 H, Glucose 99, Calcium 7.1 L, Magnesium 2.5 Micro: Microbiology 09/27/20 07:12 Sputum, Expectorated/Coughed Gram Stain - Final 09/27/20 07:12 Sputum, Expectorated/Coughed Respiratory Culture - Final 09/27/20 02:30 Urine, Catheterized Urine Culture - Final Culture exhibits no growth. 09/27/20 02:30 Urine Catheter - Bruno Legionella Antigen - Final 09/27/20 02:30 Urine Catheter - Bruno Streptococcus pneumoniae Antigen (M - Final 09/27/20 02:30 Mucosa - Nose SARS-CoV-2 Antigen (Rapid) - Final Physical Exam Narrative Physical exam: General: Sedated, intubated, on mechanical ventilator, extensive subcutaneous emphysema of the face, cervical region, thoracic region, improved HEENT: Left pupil reacts sluggishly to light, about 3 mm, right pupil about 3 to 4 mm, does not react to light endotracheal tube has bloody aspirate, bruise over the left jaw Oral:Dry mucosa Neck: Supple Lungs: Diminished Cardiovascular: HS I+II, regular, no murmurs Abdomen: Bowel Sounds Present, Soft, Non Tender Extremities: Bilateral leg edema, trace to +1 Assessment & Plan Assessment/Plan (1) Pneumothorax: (2) Septic shock: (3) Cardiopulmonary arrest with successful resuscitation: (4) GI bleed: QUALIFIERS: GI bleed type/associated pathology: anorectal hemorrhage Qualified Code(s): K62.5 - Hemorrhage of anus and rectum (5) Presence of stent in coronary artery: (6) Ischemic cardiomyopathy: PLAN: 1. Status post cardiopulmonary arrest, unclear precipitating etiology Patient remains minimally responsive; Patient was down for unknown amount of time prior to start of CPR. Suspect strongly anoxic brain injury with loss of higher cerebral function. He still has some brainstem function. In keeping with his living will, I agree with woodworking bench carpenter that patient's family should be contacted and then be considered for terminally extubation 2. Acute pneumothorax with extensive subcutaneous emphysema, status post chest tube placement Secondary to multiple rib fractures from CPR, patient with flail chest General surgery and woodworking bench carpenter consulted Continue with chest tube, intubation and mechanical ventilator 3. Acute hypoxic respiratory failure, likely secondary to #1 and 2 status post intubation and mechanical ventilator Continue on current minimal ventilatory settings; on propofol and fentanyl 4. Septic versus cardiogenic shock, unclear etiology, Chest x-ray shows infiltrates in the right lung base as well as left upper lobe UA is mildly suggestive of UTI WBC count is normal. Lactic acid is 3.9 Continue on IV Zosyn and vancomycin, follow-up on blood and urine cultures 5. Hypokalemia, resolved 6. Hypomagnesemia/Hypophosphatemia,replaced 7. Hypernatremia, Na 145, will 8. stage IIIa, creatinine slightly elevated at 1.64, continue to monitor 9. Elevated troponin, likely secondary to CPR, history of CAD status post stent, history of ischemic cardiomyopathy 2D-echo in 2020 shows EF 45% Family is coming in to see him; plan is for extubation later today. His sedation was switched off this morning. No signs of arousal slight tachycardia and hypertension. Charges/Coding Visit Charges Inpatient E&M: 27960 Subs Hosp L3
--- NOTE | 2020-09-29 13:40 | NURSING ---
Patients sister, son and daughter are at bedside. All family took turns privately visiting with patient then stated that they were ready to terminally extubate. Dr Riddle and Dr Robison notified. Comfort care orders received and RT Yomaira notified. Will proceed with terminal extubation when all parties are ready.
[2020-09-29] MEDS: LORazepam 2 MG/ML Syringe IV (13:50)
[2020-09-29] MEDS: Morphine 2 MG/ML Syringe IV (13:50)
--- NOTE | 2020-09-29 14:10 | CPS ---
Terminally extubated patient at 1353. Marquis ARGUELLO at bedside with this RT. Mat COLLECTION SUPERVISOR
--- NOTE | 2020-09-29 14:15 | PCM.DEATH ---
Preliminary Cause of Preliminary Cause of Preliminary Cause of : 1. Acute hypoxic respiratory failure 2. Acute pneumothorax with extensive subcutaneous emphysema 3. Status post cardiopulmonary arrest 4. Septic shock Date of Admission: 09/27/20 Date of : 09/29/20 Principle Diagnosis Anoxic brain injury, status post cardiopulmonary arrest, acute respiratory failure, acute pneumothorax with extensive subcutaneous emphysema, elevated troponin from cardiopulmonary resuscitation. Problem List: Active and Suspected Problems (Updated 09/27/20 @ 07:[address] Saroj Marmolejo MD) Pneumothorax (Acute) Septic shock (Acute) Cardiopulmonary arrest with successful resuscitation (Acute) GI bleed (Acute) Hospital Course 75-year-old male with past medical history of CAD status post stent who comes in after being found unresponsive. Patient was down more than 5 minutes before CPR was started. There was return of spontaneous circulation in the field. Patient lost his pulse again in the ED and CPR was resumed. He regained spontaneous circulation. He was intubated and admitted to ICU mechanical ventilator. Patient was found to have pneumothorax and massive subcutaneous emphysema soon after arrival to the ICU. General surgery was consulted and chest tube was placed emergently in the right. Patient subcutaneous emphysema continues to improve. Patient was on pressors momentarily. He had elevated troponin. EKG showed no acute ST-T changes. Patient's chest x-ray showed multiple infiltrates in the right upper lobe and the left lower lobe. It was believed to be secondary to aspiration. Patient was started on empiric vancomycin and Zosyn. His urine and blood cultures were negative. Patient had myoclonic jerks on admission. He was off pressors after a few hours. He continued not to be responsive. He however had brainstem function and was breathing about the. He was continued minimal ventilatory as well as minimal sedation. Patient was found to have had a living will that stated that he did not want to be in a vegetative state. Social work was consulted and patient sister who the power of attorney law clerk was contacted. Patient has apparently been estranged from his family. He is well-known to the police. Patient continue not to improve over the last 48 hours since his stay. The review trainer and I agreed that patient definitely had evidence of anoxic brain injury. This was communicated to the family. Family decided to terminally extubate patient. Patient passed on 09/29/20. Time of was 1407 Assessment & Plan Assessment/Plan (1) Pneumothorax: QUALIFIERS: Encounter type: sequela Pneumothorax type: traumatic Qualified Code(s): S27.0XXS - Traumatic pneumothorax, sequela (2) Septic shock: (3) Cardiopulmonary arrest with successful resuscitation: (4) GI bleed: QUALIFIERS: GI bleed type/associated pathology: anorectal hemorrhage Qualified Code(s): K62.5 - Hemorrhage of anus and rectum (5) Emphysema, traumatic, subcutaneous: QUALIFIERS: Encounter type: subsequent encounter Qualified Code(s): T79.7XXD - Traumatic subcutaneous emphysema, subsequent encounter (6) Sepsis with acute hypoxic respiratory failure and septic shock: QUALIFIERS: Sepsis type: sepsis due to unspecified organism Qualified Code(s): A41.9 - Sepsis, unspecified organism; R65.21 - Severe sepsis with septic shock; J96.01 - Acute respiratory failure with hypoxia (7) Hypokalemia: (8) Hypomagnesemia: (9) Hypernatremia: Visit Charges Inpatient E&M: 78957 Disch Hosp
== END 2020-09-29 14:07 | DRG 871 ==
LOC: ED 01:33 → ICU 05:12
PROVIDERS: Internal Medicine Critical Care Medicine; Admitting Provider Hospitalist; Emergency Provider Student in an Organized Health Care Education/Training Program; PCP Internal Medicine; Visit Provider Internal Medicine
DX: A41.9 Sepsis, unspecified organism (principal); S22.5XXA Flail chest, initial encounter for closed fracture; J96.01 Acute respiratory failure with hypoxia; R65.21 Severe sepsis with septic shock; J69.0 Pneumonitis due to inhalation of food and vomit; G93.1 Anoxic brain damage, not elsewhere classified; E87.1 Hypo-osmolality and hyponatremia; S27.0XXA Traumatic pneumothorax, initial encounter; T79.7XXA Traumatic subcutaneous emphysema, initial encounter; S01.512A Laceration without foreign body of oral cavity, initial encounter; A60.02 Herpesviral infection of other male genital organs; I46.9 Cardiac arrest, cause unspecified; E78.00 Pure hypercholesterolemia, unspecified; E78.5 Hyperlipidemia, unspecified; E87.6 Hypokalemia; I12.9 Hypertensive chronic kidney disease with stage 1 through stage 4 chronic kidney disease, or unspecified chronic kidney disease; N18.31 Chronic kidney disease, stage 3a; I25.5 Ischemic cardiomyopathy; F19.10 Other psychoactive substance abuse, uncomplicated; K29.70 Gastritis, unspecified, without bleeding; I44.1 Atrioventricular block, second degree; I45.10 Unspecified right bundle-branch block; Z79.899 Other long term (current) drug therapy; E83.42 Hypomagnesemia; S00.83XA Contusion of other part of head, initial encounter; E83.39 Other disorders of phosphorus metabolism; X58.XXXA Exposure to other specified factors, initial encounter; Z87.891 Personal history of nicotine dependence
CPT/HCPCS: 31500; 31720; 36556; 36600; 70450; 70486; 71045; 72125; 74018; 80048; 80053; 80202; 80307; 81001; 82077; 82550; 82803; 83605; 83735; 84100; 84478; 84484; 85014; 85018; 85025; 85610; 85730; 87040; 87070; 87086; 87205; 87426; 87449; 87635; 92950; 93005; 94002; 94003; 94660; 97162; 97802; 99251; 99285; J7030; J7040; J7050; Q9957; U0005; A4216; C1751; G0463; J3010; J3490; U0003